=== PATIENT | female | born 1935 | race Native Hawaiian/Other Pacific Islander ===

== ENCOUNTER 2016-12-04 19:05 | Inpatient (IN) | payer MEDICARE ==
[2016-12-04] MEDS ORDERED: Sodium Chloride 0.9% 1000 ML 1,000 ML IV STA (19:23)
[2016-12-04] MEDS ORDERED: FEVERALL 650 MG PR ONE (19:28)
[2016-12-04 19:36] LABS: BASOPHIL % 0.1 % (0.0-0.4); Eosinophil % 0.1 % (0.00-5.0); Lymphocytes % 4.5 % (24.0-44.0); Mean Corpuscular Hemoglobin 29.3 pg (26-32); Mean Platelet Volume 11.8 fl (6-9.5); Monocytes % 4.3 % (0.0-12.0); Platelet Count 170 K/mm3 (150-450); Red Blood Count 4.09 M/mm3 (4.1-5.4); Red Cell Distribution Width 14.1 % (11.5-14.0); White Blood Count 9.3 K/mm3 (4.0-10.5)
[2016-12-04] MEDS ORDERED: Sodium Chloride 0.9% 1000 ML 1,000 ML ONE (19:39)
[2016-12-04] MEDS ORDERED: FEVERALL 650 MG ONE (19:39)
[2016-12-04 19:42] LABS: INR 1.16 (0.8-3.0)
[2016-12-04] MEDS ORDERED: Zosyn 3.375GM/100 Ml D5W 3.375 GM/100 ML IVPB IV STA (19:43)
[2016-12-04 19:44] LABS: PTT 31.6 SECONDS (25.3-37.0)
[2016-12-04 19:51] LABS: ALBUMIN 3.1 g/dL (3.4-5.0); ALKALINE PHOSPHATASE 39 U/L (46-116); ANION GAP 15.3 MEQ/L (5-15); BLOOD UREA NITROGEN 15 mg/dL (9-20); CHLORIDE 104 mEq/L (98-107); Glucose 152 MG/DL (70-110); SGOT/AST 13 U/L (15-37); SGPT/ALT 8 U/L (12-78); SODIUM 144 mEq/L (136-145); Total Protein 6.7 gm/dL (6.4-8.2)
[2016-12-04 19:51] LABS: VBG BASE EXCESS 6.2 (-2.0-2.0); VBG HCO3- 30.6 meq/L (22-28); VBG HEMOGLOBIN 13.7; VBG O2 SATURATION 71.4 (95-100); VBG pH 7.47 (7.32-7.42)
[2016-12-04 19:52] LABS: VBG POTASSIUM 2.7 (3.5-5.1)
[2016-12-04 20:00] LABS: Potassium 2.5 mEq/L (3.5-5.1)
[2016-12-04] MEDS ORDERED: Zosyn 3.375GM/100 Ml D5W 3.375 GM/100 ML IVPB IV ONE (20:00)
--- NOTE | 2016-12-04 20:04 | ERPHSYRPT ---
- History of Present Illness Time Seen by Provider: 12/04/16 19:33 Source: patient, family (sister in law), [facility] records Patient Subjective Stated Complaint: eMS STATES THEY WERE DISPATCHED TO LOCAL ECF FOR CHOKING FEMALE. EMS STATES UPON THEIR R ARRIVAL PT COUGHING BREATHING INCREASED. Triage Nursing Assessment: PT PALE, HOT TO TOUCH, DRY. ANTERIOR LUNGS CLEAR AND EQUAL. Physician History: CC: choking Hx: 81 y/o patient of Dr Marci Kitchen form [facility]. She is DNR status there. She had a choking spell this AM and had Heimlich. Choked again on tea this evening. She has fever and feels poorly. Some difficulty breathing. Pt gives limited hx due to her condition. Timing/Duration: today Severity: moderate Allergies/Adverse Reactions: No Known Drug Allergies Allergy (Unverified 12/04/16 19:13) Home Medications: Alprazolam [Xanax] 0.5 mg PO DAILY 12/04/16 [History] Aspirin 81 mg PO DAILY 12/04/16 [History] Calcium Carbonate [Calcium] 600 mg PO DAILY 12/04/16 [History] Carbidopa/Levodopa [Carbidopa-Levo 10-100 mg Odt] 1 each PO TID 12/04/16 [ History] Carbidopa/Levodopa [Carbidopa-Levo 25-100 Tab] 1 each PO TID 12/04/16 [History] Hydrocodone Bit/Acetaminophen [[place] 5-325 Tablet] 1 each PO Q4-6HPRN PRN [History] Ipratropium/Albuterol Sulfate [Iprat-Albut 0.5-3(2.5) mg/3 ml] 3 ml IH Q6H PRN PRN 12/04/16 [History] Latanoprost 2.5 ml OP DAILY 12/04/16 [History] Lorazepam 0.25 mg PO DAILY 12/04/16 [History] Omeprazole 20 MG [Prilosec 20 mg] 20 mg PO DAILY 12/04/16 [History] Sucralfate 1 gm [Carafate 1 GM] 1 gm PO QID 12/04/16 [History] Hx Tetanus, Diphtheria Vaccination/Date Given: (UNKOWN) Hx Influenza Vaccination/Date Given: (UNKNOWN) Hx Pneumococcal Vaccination/Date Given: (UNKOWN) Immunizations Up to Date: (UNKOWN) - Review of Systems Constitutional: Fever, Malaise Respiratory: Cough, Dyspnea, Other (choking spells) Abdominal/Gastrointestinal: No Vomiting Skin: No Rash Neurological: No Headache All Other Systems: Unable due to condition, Unable due to dementia - Past Medical History Pertinent Past Medical History: Yes Cardiac History: Hypertension Musculoskeletal History: Osteoporosis GI Medical History: GERD Other Medical History: Progressive Supranuclear Palsy - Past Surgical History Past Surgical History: Yes (UNKNOWN) - Social History Drug Use: none Patient Lives Alone: No ([facility]) - Nursing Vital Signs Nursing Vital Signs: Initial Vital Signs Temperature 102.7 F Temperature Source Rectal Pulse Rate 96 Respiratory Rate 18 Blood Pressure [] 128/58 Pain Intensity 6 - Physical Exam General Appearance: alert, other (limited answers to questions) Eye Exam: other (pupils are equal) Ears, Nose, Throat Exam: dry mucous membranes, other (No FB seen in her posterior pharynx) Neck Exam: supple Respiratory Exam: crackles/rales Cardiovascular Exam: regular rate/rhythm Extremity Exam: pedal edema Neurologic Exam: alert, other (moves all extermities equally) Skin Exam: warm, dry, pale SpO2 Interpretation: borderline oxygenation, O2 applied SpO2: 94 Oxygen Delivery: Nasal Cannula - Course Nursing assessment & vital signs reviewed: Yes EKG Interpreted by Me: RATE (101), Sinus Tach, NORMAL AXIS, Non-specific ST Changes - Radiology Exams cxr X-ray Interpretation: Reviewed by me (RLL infiltrate, CM, aging chest) - CT Exams head CT Interpretation: Tele-radiologist Report (non acute senile brain, 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) Ordered Tests: Active Orders 24 hr Category Date Time Status Corporate Librarian STAT Care 12/04/16 19:34 Active Cath for Specimen-Straight STAT Care 12/04/16 19:34 Active EKG-ER Only STAT Care 12/04/16 19:27 Active IV Insertion STAT Care 12/04/16 19:27 Active IV Insertion-2nd Peripheral STAT Care 12/04/16 19:34 Active NPO (ED) STAT Care 12/04/16 19:42 Active Oxygen-ED Only NASAL CANNULA 3 lpm Care 12/04/16 19:23 Active Pulse Oximetry (ED) STAT Care 12/04/16 19:23 Active Saline Lock STAT Care 12/04/16 19:34 Active CHEST 1 VIEW (PORTABLE) Stat Exams 12/04/16 19:22 Taken HEAD WITHOUT CONTRAST [CT] Stat Exams 12/04/16 19:42 Taken BLOOD CULTURE Stat Lab 12/04/16 19:30 Received CBC W DIFF Stat Lab 12/04/16 19:00 Completed CMP Stat Lab 12/04/16 19:00 Completed CULTURE,URINE Stat Lab 12/04/16 19:30 Received Lactic Acid Stat Lab 12/04/16 19:35 Completed MAGNESIUM Stat Lab 12/04/16 19:00 Completed Manual Differential NC Stat Lab 12/04/16 19:00 Completed PROTIME WITH INR Stat Lab 12/04/16 19:00 Completed PTT Stat Lab 12/04/16 19:00 Completed UA W/ MICROSCOPIC Stat Lab 12/04/16 19:30 Completed VENOUS BLOOD GAS Stat Lab 12/04/16 19:35 Completed Medication Summary Generic Name Dose Route Start Last Admin Trade Name Freq PRN Reason Stop Dose Admin Potassium Chloride 100 mls @ 50 mls/hr 12/04/16 20:30 12/04/16 20:42 Potassium Chloride 20 Meq In Water 100ml IV 12/05/16 00:29 50 mls/hr Q2H ANDER Administration Discontinued Medications Generic Name Dose Route Start Last Admin Trade Name Freq PRN Reason Stop Dose Admin Acetaminophen 650 mg 12/04/16 19:28 12/04/16 19:40 Feverall 650 Mg FL 12/04/16 19:29 650 mg STAT ONE Administration Acetaminophen Confirm 12/04/16 19:39 Feverall 650 Mg Administered 12/04/16 19:40 Dose 650 mg .ROUTE .STK-MED ONE Sodium Chloride 1,000 mls @ 999 mls/hr 12/04/16 19:23 12/04/16 19:40 Sodium Chloride 0.9% 1000 Ml IV 12/04/16 20:23 999 mls/hr .Q1H1M STA Administration Sodium Chloride Confirm 12/04/16 19:39 Sodium Chloride 0.9% 1000 Ml Administered 12/04/16 19:40 Dose 1,000 mls @ ud .ROUTE .STK-MED ONE Piperacillin Sod/Tazobactam Sod 3.375 gm in 100 mls @ 200 mls/hr 12/04/16 19: 43 06/06/17 20:10 Zosyn 3.375gm/100 Ml D5w IV 12/04/16 20:12 200 mls/hr STAT STA Administration Piperacillin Sod/Tazobactam Sod Confirm 12/04/16 20:00 Zosyn 3.375gm/100 Ml D5w Administered 12/04/16 20:01 Dose 3.375 gm in 100 mls @ ud IV .STK-MED ONE Lab/Rad Data: Laboratory Result Diagrams 12/04/16 19:00 12/04/16 19:00 Laboratory Results 12/04/16 12/04/16 12/04/16 Range/Units 19:35 19:35 19:30 WBC (4.0-10.5) K/mm3 RBC (4.1-5.4) M/mm3 Hgb (12.0-16.0) gm/dl Hct (35-47) % MCV (78-100) fl MCH (26-32) pg MCHC (32-36) g/dl RDW (11.5-14.0) % Plt Count (150-450) K/mm3 MPV (6-9.5) fl Gran % (36.0-66.0) % Lymphocytes % (24.0-44.0) % Monocytes % (0.0-12.0) % Eosinophils % (0.00-5.0) % Basophils % (0.0-0.4) % Segmented Neutrophils (36.0-66.0) % Band Neutrophils (0.0-2.0) % Lymphocytes (Manual) (24-44) % Monocytes (Manual) (0.0-12.0) % Basophils # (0-0.4) Differential Comment Platelet Estimate (NORMAL) Poikilocytosis Ovalocytes INR (0.8-3.0) APTT (25.3-37.0) SECONDS VBG pH 7.47 H (7.32-7.42) VBG pCO2 at Pat Temp 42 (42-55) mm/Hg VBG pO2 at Pat Temp 36 (25-40) mm/Hg VBG HCO3 30.6 H* (22-28) meq/L VBG O2 Sat (Merry) 71.4 L (95-100) VBG Base Excess 6.2 H (-2.0-2.0) VBG Hemoglobin 13.7 VBG Carboxyhemoglobin 2.0 (0.0-6.9) % T HGB POC Potassium 2.7 L* (3.5-5.1) Sodium (136-145) mEq/L Potassium (3.5-5.1) mEq/L Chloride (98-107) mEq/L Carbon Dioxide (21-32) mEq/L Anion Gap (5-15) MEQ/L BUN (9-20) mg/dL Creatinine (0.55-1.30) mg/dl Estimated GFR ML/MIN Glucose (70-110) MG/DL Lactic Acid 1.2 (0.4-2.0) Calcium (8.5-10.1) mg/dL Magnesium (1.8-2.4) mg/dL Total Bilirubin (0.2-1.0) mg/dL AST (15-37) U/L ALT (12-78) U/L Alkaline Phosphatase (46-116) U/L Serum Total Protein (6.4-8.2) gm/dL Albumin (3.4-5.0) g/dL Ur Collection Type CATH Urine Color YELLOW (YELLOW) Urine Appearance CLOUDY (CLEAR) Urine pH 6.0 (5-6) Ur Specific [place] 1.020 (1.005-1.025) Urine Protein 30 (Negative) Urine Glucose (UA) NEGATIVE (NEGATIVE) mg/dL Urine Ketones TRACE (NEGATIVE) Urine Nitrite POSITIVE (NEGATIVE) Urine Bilirubin NEGATIVE (NEGATIVE) Urine Urobilinogen 0.2 (0-1) mg/dL Urine WBC (Auto) SMALL (NEGATIVE) Urine RBC (Auto) MODERATE (0-5) Jose Maria/ul Urine Microscopic RBC 5-10 (0-2) /HPF Urine Microscopic WBC 5-10 (0-5) /HPF Ur Epithelial Cells MODERATE (FEW) /HPF Urine Bacteria MODERATE (NEGATIVE) /HPF Urine Mucus SLIGHT (NEGATIVE) /HPF Specimen Received 12/04/16199912/04/16 12/04/16 12/04/16 Range/Units 19:00 19:00 19:00 WBC (4.0-10.5) K/mm3 RBC (4.1-5.4) M/mm3 Hgb (12.0-16.0) gm/dl Hct (35-47) % MCV (78-100) fl MCH (26-32) pg MCHC (32-36) g/dl RDW (11.5-14.0) % Plt Count (150-450) K/mm3 MPV (6-9.5) fl Gran % (36.0-66.0) % Lymphocytes % (24.0-44.0) % Monocytes % (0.0-12.0) % Eosinophils % (0.00-5.0) % Basophils % (0.0-0.4) % Segmented Neutrophils (36.0-66.0) % Band Neutrophils (0.0-2.0) % Lymphocytes (Manual) (24-44) % Monocytes (Manual) (0.0-12.0) % Basophils # (0-0.4) Differential Comment Platelet Estimate (NORMAL) Poikilocytosis Ovalocytes INR 1.16 (0.8-3.0) APTT 31.6 (25.3-37.0) SECONDS VBG pH (7.32-7.42) VBG pCO2 at Pat Temp (42-55) mm/Hg VBG pO2 at Pat Temp (25-40) mm/Hg VBG HCO3 (22-28) meq/L VBG O2 Sat (Merry) (95-100) VBG Base Excess (-2.0-2.0) VBG Hemoglobin VBG Carboxyhemoglobin (0.0-6.9) % T HGB POC Potassium (3.5-5.1) Sodium 144 (136-145) mEq/L Potassium 2.5 L* (3.5-5.1) mEq/L Chloride 104 (98-107) mEq/L Carbon Dioxide 28.0 (21-32) mEq/L Anion Gap 15.3 H (5-15) MEQ/L BUN 15 (9-20) mg/dL Creatinine 0.85 (0.55-1.30) mg/dl Estimated GFR > 60 ML/MIN Glucose 152 H (70-110) MG/DL Lactic Acid (0.4-2.0) Calcium 8.2 L (8.5-10.1) mg/dL Magnesium 1.7 L (1.8-2.4) mg/dL Total Bilirubin 0.40 (0.2-1.0) mg/dL AST 13 L (15-37) U/L ALT 8 L (12-78) U/L Alkaline Phosphatase 39 L (46-116) U/L Serum Total Protein 6.7 (6.4-8.2) gm/dL Albumin 3.1 L (3.4-5.0) g/dL Ur Collection Type Urine Color (YELLOW) Urine Appearance (CLEAR) Urine pH (5-6) Ur Specific [place] (1.005-1.025) Urine Protein (Negative) Urine Glucose (UA) (NEGATIVE) mg/dL Urine Ketones (NEGATIVE) Urine Nitrite (NEGATIVE) Urine Bilirubin (NEGATIVE) Urine Urobilinogen (0-1) mg/dL Urine WBC (Auto) (NEGATIVE) Urine RBC (Auto) (0-5) Jose Maria/ul Urine Microscopic RBC (0-2) /HPF Urine Microscopic WBC (0-5) /HPF Ur Epithelial Cells (FEW) /HPF Urine Bacteria (NEGATIVE) /HPF Urine Mucus (NEGATIVE) /HPF Specimen Received 12/04/16 Range/Units 19:00 WBC 9.3 (4.0-10.5) K/mm3 RBC 4.09 L (4.1-5.4) M/mm3 Hgb 12.0 (12.0-16.0) gm/dl Hct 37.2 (35-47) % MCV 91.0 (78-100) fl MCH 29.3 (26-32) pg MCHC 32.3 (32-36) g/dl RDW 14.1 H (11.5-14.0) % Plt Count 170 (150-450) K/mm3 MPV 11.8 H (6-9.5) fl Gran % 91.0 H (36.0-66.0) % Lymphocytes % 4.5 L (24.0-44.0) % Monocytes % 4.3 (0.0-12.0) % Eosinophils % 0.1 (0.00-5.0) % Basophils % 0.1 (0.0-0.4) % Segmented Neutrophils 91 H (36.0-66.0) % Band Neutrophils 5 H (0.0-2.0) % Lymphocytes (Manual) 3 L (24-44) % Monocytes (Manual) 1 (0.0-12.0) % Basophils # 0.01 (0-0.4) Differential Comment ABNORMAL Platelet Estimate NORMAL (NORMAL) Poikilocytosis 1+ Ovalocytes 1+ INR (0.8-3.0) APTT (25.3-37.0) SECONDS VBG pH (7.32-7.42) VBG pCO2 at Pat Temp (42-55) mm/Hg VBG pO2 at Pat Temp (25-40) mm/Hg VBG HCO3 (22-28) meq/L VBG O2 Sat (Merry) (95-100) VBG Base Excess (-2.0-2.0) VBG Hemoglobin VBG Carboxyhemoglobin (0.0-6.9) % T HGB POC Potassium (3.5-5.1) Sodium (136-145) mEq/L Potassium (3.5-5.1) mEq/L Chloride (98-107) mEq/L Carbon Dioxide (21-32) mEq/L Anion Gap (5-15) MEQ/L BUN (9-20) mg/dL Creatinine (0.55-1.30) mg/dl Estimated GFR ML/MIN Glucose (70-110) MG/DL Lactic Acid (0.4-2.0) Calcium (8.5-10.1) mg/dL Magnesium (1.8-2.4) mg/dL Total Bilirubin (0.2-1.0) mg/dL AST (15-37) U/L ALT (12-78) U/L Alkaline Phosphatase (46-116) U/L Serum Total Protein (6.4-8.2) gm/dL Albumin (3.4-5.0) g/dL Ur Collection Type Urine Color (YELLOW) Urine Appearance (CLEAR) Urine pH (5-6) Ur Specific [place] (1.005-1.025) Urine Protein (Negative) Urine Glucose (UA) (NEGATIVE) mg/dL Urine Ketones (NEGATIVE) Urine Nitrite (NEGATIVE) Urine Bilirubin (NEGATIVE) Urine Urobilinogen (0-1) mg/dL Urine WBC (Auto) (NEGATIVE) Urine RBC (Auto) (0-5) Jose Maria/ul Urine Microscopic RBC (0-2) /HPF Urine Microscopic WBC (0-5) /HPF Ur Epithelial Cells (FEW) /HPF Urine Bacteria (NEGATIVE) /HPF Urine Mucus (NEGATIVE) /HPF Specimen Received - Progress Progress Note: 12/04/16 20:04 Son agreed on phine with nurse for SCO. Sepsis orders initiated. APAP given. Zosyn given to cover for aspiration pneumonia. 12/04/16 21:14 Pt stable. K rider started. Zosyn given. Called Dr Gutierrez for Cammie. Will admit to med surg for sepsis care, coverage for aspiration pneumonia. NPO until Speech therapy evaluation. Discussed with .: Brenda Will see patient in: hospital (full admit) Counseled pt/family regarding: lab results, diagnosis, need for follow-up, rad results - Departure Time of Disposition: 21:15 Departure Disposition: In-patient Admission Clinical Impression: Aspiration pneumonia, Hypokalemia, choking spells, Sepsis Condition: Fair Critical Care Time: No Referrals: MARCI KITCHEN [Primary Care Provider] -
[2016-12-04 20:18] LABS: Bacteria MODERATE /HPF (NEGATIVE); COMPLETE URINE MICROSCOPIC? YES; Collection Type CATH; Epithelial Cells MODERATE /HPF (FEW); Mucus SLIGHT /HPF (NEGATIVE)
[2016-12-04 20:19] LABS: ADD URINE CULTURE? YES (NO)
[2016-12-04] MEDS: POTASSIUM CHLORIDE 20 mEq IN WATER 100ML 100 ML IV SCH (20:42)
[2016-12-04 21:12] LABS: BAND 5 % (0.0-2.0); Platelet Estimate NORMAL (NORMAL); Total Cells Counted 100
[2016-12-04 21:13] LABS: Ovalocytes 1+; Poikilocytosis 1+
[2016-12-04] MEDS ORDERED: DUONEB 0.5-3 MG/3 ml Neb IH PRN (22:22)
[2016-12-04] MEDS ORDERED: Sodium Chloride 0.9% W/ 20 mEq KCl/LITER 0 ML IV ONE (23:52)
[2016-12-05] MEDS: SODIUM CHLORIDE 0.45% W/ 20 mEq KCL 1,000 ML IV SCH ×2 (00:05→09:30)
[2016-12-05] MEDS: POTASSIUM CHLORIDE 20 mEq IN WATER 100ML 100 ML IV SCH (00:06)
[2016-12-05] MEDS: Zosyn 3.375GM/100 Ml D5W 3.375 GM/100 ML IVPB IV SCH ×2 (02:04→06:56)
[2016-12-05] MEDS ORDERED: Magnesium 1 Gm / 100 Ml D5W*** 100 ML IV ONE (04:35)
[2016-12-05] MEDS ORDERED: FEVERALL 325 MG ONE (05:11)
[2016-12-05] MEDS: FEVERALL 325 MG PR PRN ×2 (05:15→23:20)
[2016-12-05 05:39] LABS: BASOPHIL % 0.2 % (0.0-0.4); Eosinophil % 2.1 % (0.00-5.0); Granulocytes % 73.1 % (36.0-66.0); Lymphocytes % 22.3 % (24.0-44.0); Mean Cell Volume 92.7 fl (78-100); Mean Corpuscular Hemoglobin 29.2 pg (26-32); Mean Platelet Volume 12.4 fl (6-9.5); Monocytes % 2.3 % (0.0-12.0); Platelet Count 145 K/mm3 (150-450); Red Blood Count 4.52 M/mm3 (4.1-5.4); Red Cell Distribution Width 14.6 % (11.5-14.0)
[2016-12-05 05:40] LABS: ANION GAP 20.5 MEQ/L (5-15); Carbon Dioxide 21.7 mEq/L (21-32); Potassium 3.5 mEq/L (3.5-5.1)
[2016-12-05 07:23] LABS: Lactic Acid 5.7 (0.4-2.0)
[2016-12-05] MEDS ORDERED: Lactated Ringers 1,000 ML IV ONE (08:00)
--- NOTE | 2016-12-05 08:09 | PCM.HP ---
History of Present Illness - Chief Complaint Chief Complaint: sepsis Date: 12/05/16 History of Present Illness: is a 81 year old female. who is suffering from progressive supranuclear palsy and is in the alf where she has had some intermittent swallowing difficulties and a few episodes of choking with eating and had a more severe episode of choking yesterday at the dining dejesus at lunch and was taken back to her room she was coughing up thick yellow mucous then and started to run an elevated temperature and was sent for further evaluation at the ED. She was initially treated for aspiration pneumonia with zosyn; however last night developed copious watery diarrhea and very high fever and was chilling as well and tested positive for c. diff this am. Currently this am she is sitting up in her bed responding appropriately for her at her normal baseline and denies any current complaints. She is hungry but otherwise denies being short of breath or abdominal pains and no chest pains. - Review of Systems Constitutional: Fever, Chills, Fatigue Ears, Nose, & Throat: No Nose Discharge, No Sinus Drainage Respiratory: Cough, No Short Of Breath Cardiac: No Edema, No Palpitations Abdominal/Gastrointestinal: Diarrhea, No Abdominal Pain, No Nausea, No Vomiting Genitourinary Symptoms: No Dysuria Musculoskeletal: No Arthralgias, No Back Pain, No Joint Redness Skin: No Cellulitis Neurological: No Dizziness, No Irritability Medications & Allergies Home Medications: Home Medication List Alprazolam [Xanax] 0.5 mg PO DAILY 12/04/16 [History Confirmed 12/04/16] Aspirin 81 mg PO DAILY 12/04/16 [History Confirmed 12/04/16] Calcium Carbonate [Calcium] 600 mg PO DAILY 12/04/16 [History Confirmed 12/04/16 ] Carbidopa/Levodopa [Carbidopa-Levo 10-100 mg Odt] 1 each PO TID 12/04/16 [ History Confirmed 12/04/16] Carbidopa/Levodopa [Carbidopa-Levo 25-100 Tab] 1 each PO TID 12/04/16 [History Confirmed 12/04/16] Hydrocodone Bit/Acetaminophen [[place] 5-325 Tablet] 1 each PO Q4-6HPRN PRN [History Confirmed 12/04/16] Ipratropium/Albuterol Sulfate [Iprat-Albut 0.5-3(2.5) mg/3 ml] 3 ml IH Q6H PRN PRN 12/04/16 [History Confirmed 12/04/16] Latanoprost 2.5 ml OP DAILY 12/04/16 [History Confirmed 12/04/16] Lorazepam 0.25 mg PO DAILY 12/04/16 [History Confirmed 12/04/16] Omeprazole 20 MG [Prilosec 20 mg] 20 mg PO DAILY 12/04/16 [History Confirmed 12/15] Sucralfate 1 gm [Carafate 1 GM] 1 gm PO QID 12/04/16 [History Confirmed ] Ascorbic Acid 500 mg [Vitamin C 500 MG] 500 mg PO DAILY 12/05/16 [History Confirmed 12/05/16] Cyclosporine [Restasis] 0.05 drop OP BID 12/05/16 [History Confirmed 12/05/16] Diclofenac Sodium Gel [Voltaren GEL] 1 gm TOP BIDPRN PRN 12/05/16 [ History Confirmed 12/05/16] Escitalopram Oxalate 10 mg [Lexapro 10 MG] 20 mg PO DAILY 12/05/16 [History Confirmed 12/05/16] Sennosides [Senokot] 8.6 mg PO BID 12/05/16 [History Confirmed 12/05/16] Vitamin E 400 unit PO DAILY 12/05/16 [History Confirmed 12/05/16] Allergies/Adverse Reactions: Allergies Allergy/AdvReac Type Severity Reaction Status Date / Time No Known Drug Allergies Allergy Unverified 12/04/16 19:13 - Past Medical History Past Medical History: Yes Neurological History: Other ENT History: Glaucoma Cardiac History: Hypertension Respiratory History: COPD Musculoskelatal History: Osteoporosis GI Medical History: GERD Pyscho-Social History: Anxiety Comment: Progressive Supranuclear Palsy - Female History Are you now?: No - Past Surgical History Past Surgical History: (UNKNOWN) - Social History Smoking Status: Unknown if ever smoked Exposure to second hand smoke: No Alcohol: None Drug Use: none - Physical Exam Vital Signs: Vital Signs - 24 hr Temp Pulse Resp BP Pulse Ox 12/05/16 08:00 103 F 95 H 28 H 123/65 99 06/07/17 07:14 100 H 30 H 97 12/05/16 04:15 98.3 F 94 H 22 139/68 94 L 12/05/16 04:00 22 12/05/16 00:00 14 12/04/16 22:17 103 H 32 H 97 12/04/16 22:15 98.6 F 101 H 14 144/74 93 L 12/04/16 21:52 93 L 12/04/16 21:16 94 L 12/04/16 20:54 96 H 18 128/58 98 12/04/16 19:59 88 18 158/76 95 12/04/16 19:26 94 L 12/04/16 19:07 102.7 F 101 H 28 H 159/74 94 L Oxygen-Last 24 hours O2 Percentage 2 Liters = 28% O2 Percentage 2 Liters = 28% O2 Percentage 2 Liters = 28% O2 Percentage 3 Liters = 32% O2 Percentage 3 Liters = 32% General Appearance: no apparent distress Neurologic Exam: alert, cooperative, normal mood/affect Eye Exam: No scleral icterus, No pale conjunctivae Ears, Nose, Throat Exam: moist mucous membranes Neck Exam: non-tender, supple Respiratory Exam: crackles/rales (minimal bibasilar rales), No accessory muscle use, No prolonged expirations, No wheezing Cardiovascular Exam: regular rate/rhythm, murmur Gastrointestinal/Abdomen Exam: soft, normal bowel sounds, No tenderness, No distention Results - Labs Lab/Micro Results: Lab Results-Last 24 Hours 12/05/16 12/05/16 12/05/16 Range/Units 04:40 04:40 04:40 WBC 10.0 (4.0-10.5) K/mm3 RBC 4.52 (4.1-5.4) M/mm3 Hgb 13.2 (12.0-16.0) gm/dl Hct 41.9 (35-47) % MCV 92.7 (78-100) fl MCH 29.2 (26-32) pg MCHC 31.5 L (32-36) g/dl RDW 14.6 H (11.5-14.0) % Plt Count 145 L (150-450) K/mm3 MPV 12.4 H (6-9.5) fl Gran % 73.1 H (36.0-66.0) % Lymphocytes % 22.3 L (24.0-44.0) % Monocytes % 2.3 (0.0-12.0) % Eosinophils % 2.1 (0.00-5.0) % Basophils % 0.2 (0.0-0.4) % Basophils # 0.02 (0-0.4) Sodium 145 (136-145) mEq/L Potassium 3.5 (3.5-5.1) mEq/L Chloride 106 (98-107) mEq/L Carbon Dioxide 21.7 (21-32) mEq/L Anion Gap 20.5 H (5-15) MEQ/L BUN 13 (9-20) mg/dL Creatinine 1.04 (0.55-1.30) mg/dl Estimated GFR 54 ML/MIN Glucose 118 H (70-110) MG/DL Lactic Acid 5.7 H (0.4-2.0) Calcium 8.0 L (8.5-10.1) mg/dL Stl C. diff Tox B Gene (NEGATIVE) C.difficile 027-NAP1-B1 (NEGATIVE) 12/05/16 Range/Units 05:39 WBC (4.0-10.5) K/mm3 RBC (4.1-5.4) M/mm3 Hgb (12.0-16.0) gm/dl Hct (35-47) % MCV (78-100) fl MCH (26-32) pg MCHC (32-36) g/dl RDW (11.5-14.0) % Plt Count (150-450) K/mm3 MPV (6-9.5) fl Gran % (36.0-66.0) % Lymphocytes % (24.0-44.0) % Monocytes % (0.0-12.0) % Eosinophils % (0.00-5.0) % Basophils % (0.0-0.4) % Basophils # (0-0.4) Sodium (136-145) mEq/L Potassium (3.5-5.1) mEq/L Chloride (98-107) mEq/L Carbon Dioxide (21-32) mEq/L Anion Gap (5-15) MEQ/L BUN (9-20) mg/dL Creatinine (0.55-1.30) mg/dl Estimated GFR ML/MIN Glucose (70-110) MG/DL Lactic Acid (0.4-2.0) Calcium (8.5-10.1) mg/dL Stl C. diff Tox B Gene POSITIVE (NEGATIVE) C.difficile 027-NAP1-B1 PRESUMPTIVE NEGATIVE (NEGATIVE) - Other Procedures and Tests Respiratory Therapy 12/04/16 22:22 Respiratory Nebulizer UD Assessment/Plan (1) C. difficile diarrhea Current Visit: Yes Status: Acute Assessment & Plan: she has received 2 doses of zosyn it looks like will stop this for now and monitor respiratory status start iv flagyl and po vanc given the severity and acuity of her decompensation overnight with the elevated lactic acid and high temp spike. bolus 1 L LR now and repeat lactic acid in 2 hours. continue respiratory supplementation with oxygen as needed wean as tolerated and have speech evaluation lovenox for dvt ppx she currently has good peripheral perfusion and her hydration currently appears euvolemic Code(s): A04.7 - ENTEROCOLITIS DUE TO CLOSTRIDIUM DIFFICILE (2) Aspiration pneumonia Current Visit: Yes Status: Acute Code(s): J69.0 - PNEUMONITIS DUE TO INHALATION OF FOOD AND VOMIT (3) Sepsis Current Visit: Yes Status: Acute (4) Hypokalemia Current Visit: Yes Status: Acute Code(s): E87.6 - HYPOKALEMIA (5) Progressive supranuclear palsy Current Visit: Yes Status: Chronic Code(s): G23.1 - PROGRESSIVE SUPRANUCLEAR OPHTHALMOPLEGIA
[2016-12-05 08:27] LABS: A-aADO2 446; ARTERIAL BLD GAS O2 SATURATION 99.2 % (95-100); ARTERIAL BLOOD GAS BASE EXCESS 2.6 (-2.0-2.0); ARTERIAL BLOOD GAS FIO2 100 %; ARTERIAL BLOOD GAS PO2 222 mmHg (75-100); ARTERIAL BLOOD GAS pH 7.47 (7.35-7.45)
[2016-12-05 08:28] LABS: ALLEN TEST OK? YES
--- NOTE | 2016-12-05 08:42 | XRAY ---
Indication: Cough, fever, and choking. Comparison: None Portable chest demonstrates minimal bibasilar infiltrates versus atelectasis without large effusion. Heart is not enlarged for AP portable technique. Bony thorax intact with mild osteopenia, minimal scoliosis, and degenerative changes. Impression: Bibasilar infiltrates/atelectasis. Correlate clinically.
--- NOTE | 2016-12-05 08:47 | XRAY ---
Indication: Headache. Fall. Multiple contiguous axial images obtained through the head without contrast. Comparison: None Age-appropriate global atrophy and moderate periventricular degenerative micro-ischemia bilaterally. Left external capsule remote lacunar infarct. No acute intracranial hemorrhage, abnormal extra-axial fluid collection, or mass effect. Bony calvarium intact. Visualized paranasal sinuses and mastoid air cells are clear. Partially visualized advanced atlantoaxial degenerative changes. Impression: Nonacute senile brain including left external capsule remote lacunar infarct. CT DI 60.26
[2016-12-05] MEDS ORDERED: Lactated Ringers 1,000 ML IV SCH (09:00)
[2016-12-05] MEDS ORDERED: Artificial Tears 15 ML OP PRN (09:31)
[2016-12-05] MEDS: VANCOMYCIN 25MG/ML COMPOUND KIT PO SCH ×4 (09:56→21:31)
[2016-12-05] MEDS: ENOXAPARIN SODIUM SQ SCH (09:58)
[2016-12-05] MEDS ORDERED: CARBIDOPA PO SCH (10:00)
[2016-12-05] MEDS ORDERED: NON-FORMULARY ITEM (Omeprazole 20 Mg [Prilosec 20 Mg] 20 MG) PO SCH (10:00)
[2016-12-05] MEDS ORDERED: NON-FORMULARY ITEM (Aspirin [Aspirin] 81 MG) PO SCH (10:00)
[2016-12-05] MEDS ORDERED: LEVODOPA PO SCH (10:00)
[2016-12-05] MEDS ORDERED: CYCLOSPORINE OP SCH (10:00)
[2016-12-05] MEDS: Lexapro 10 MG PO SCH (10:10)
[2016-12-05] MEDS: Protonix 40MG Tablet PO SCH (10:10)
[2016-12-05] MEDS: ECOTRIN 81 MG PO SCH (10:10)
[2016-12-05] MEDS: Sinemet 10/100 MG PO SCH ×3 (10:10→21:31)
[2016-12-05] MEDS: Sinemet 25/100 MG PO SCH ×3 (10:10→21:30)
[2016-12-05] MEDS: Vitamin C 500 MG PO SCH (10:10)
[2016-12-05] MEDS: Ativan 0.5 MG PO SCH (10:44)
[2016-12-05] MEDS: FLAGYL 500 MG IVPB 500 MG/100 ML BAG IV SCH ×3 (11:58→23:06)
[2016-12-05] MEDS: xanAX 0.5 MG PO SCH (21:30)
[2016-12-05] MEDS: Xalatan OP SCH (21:37)
[2016-12-06] MEDS: SODIUM CHLORIDE 0.45% W/ 20 mEq KCL 1,000 ML IV SCH (03:12)
[2016-12-06] MEDS: FLAGYL 500 MG IVPB 500 MG/100 ML BAG IV SCH ×3 (06:02→17:26)
[2016-12-06 06:03] LABS: BASOPHIL % 0.4 % (0.0-0.4); Eosinophil % 1.7 % (0.00-5.0); Granulocytes % 67.7 % (36.0-66.0); Lymphocytes % 21.7 % (24.0-44.0); Mean Cell Volume 92.9 fl (78-100); Mean Corpuscular Hemoglobin 29.3 pg (26-32); Mean Platelet Volume 11.6 fl (6-9.5); Monocytes % 8.5 % (0.0-12.0); Platelet Count 142 K/mm3 (150-450); Red Blood Count 3.51 M/mm3 (4.1-5.4); Red Cell Distribution Width 14.5 % (11.5-14.0); White Blood Count 5.4 K/mm3 (4.0-10.5)
[2016-12-06 06:28] LABS: ANION GAP 10.5 MEQ/L (5-15); BLOOD UREA NITROGEN 12 mg/dL (9-20); CHLORIDE 113 mEq/L (98-107); Carbon Dioxide 27.5 mEq/L (21-32); Glucose 92 MG/DL (70-110); MAGNESIUM 1.8 mg/dL (1.8-2.4); SODIUM 148 mEq/L (136-145)
[2016-12-06 06:34] LABS: Potassium 2.8 mEq/L (3.5-5.1)
[2016-12-06] MEDS: POTASSIUM CHLORIDE 20 mEq IN WATER 100ML 100 ML IV SCH ×2 (07:12→09:15)
--- NOTE | 2016-12-06 09:07 | XRAY ---
Indication: Aspiration. Comparison: December 04, 2016. Portable chest again demonstrates minimal bibasilar infiltrates/atelectasis with new small right effusion. Remaining heart and lungs again unremarkable.
[2016-12-06] MEDS: Ativan 0.5 MG PO SCH (09:43)
[2016-12-06] MEDS: Protonix 40MG Tablet PO SCH (09:48)
[2016-12-06] MEDS: ECOTRIN 81 MG PO SCH (09:48)
[2016-12-06] MEDS: Lexapro 10 MG PO SCH (09:48)
[2016-12-06] MEDS: Sinemet 10/100 MG PO SCH ×3 (09:48→21:54)
[2016-12-06] MEDS: ENOXAPARIN SODIUM SQ SCH (09:48)
[2016-12-06] MEDS: Vitamin C 500 MG PO SCH (09:48)
[2016-12-06] MEDS: ROCEPHIN 1 Gm-D5w 50 ml Bag** 1 G/50 ML IVPB IV SCH (09:49)
[2016-12-06] MEDS: VANCOMYCIN 25MG/ML COMPOUND KIT PO SCH ×4 (09:50→21:54)
[2016-12-06] MEDS: Sinemet 25/100 MG PO SCH ×3 (09:50→21:54)
[2016-12-06] MEDS ORDERED: POTASSIUM CHLORIDE 20 mEq IN WATER 100ML 100 ML IV ONE (18:12)
--- NOTE | 2016-12-06 19:53 | PCM.NOTE ---
Date and Time: 12/06/161947 Subjective Assessment: she is very pleasent this am but is concerned with her thickened liquids as she wants her thin liquids back. She thinks she is feeling better. She has no abdominal pain and denies difficulty breathing. Her diarrhea has diminished. Objective Exam General Appearance: no apparent distress, alert Neurologic Exam: alert, oriented x 3, cooperative Skin Exam: warm, dry Eye Exam: No scleral icterus, No pale conjunctivae Ears, Nose, Throat Exam: moist mucous membranes Neck Exam: normal inspection, non-tender, supple Respiratory Exam: other (on 2 L nc O2 left basilar rales unchanged increased right basilar rales), No respiratory distress Cardiovascular Exam: regular rate/rhythm, normal heart sounds Gastrointestinal/Abdomen Exam: soft, normal bowel sounds, No tenderness, No mass Extremity Exam: normal inspection, pedal edema (trace to 1+ clay LE edema), No calf tenderness Pelvic Exam: deferred Rectal Exam: deferred OBJECTIVE DATA Vital Signs: Vital Signs - 24 hr Temp Pulse Resp BP Pulse Ox 12/06/16 19:31 97.7 F 87 20 171/79 95 12/06/16 17:00 98.8 F 82 26 H 123/59 98 12/06/16 13:00 99.1 F 81 28 H 140/72 97 12/06/16 07:36 98.7 F 82 22 143/72 97 12/06/16 07:25 79 28 H 94 L 12/06/16 05:00 98.0 F 82 19 131/66 94 L 12/06/16 04:00 23 12/06/16 00:01 101.1 F 93 H 32 H 145/65 93 L 12/06/16 00:00 32 H 12/05/16 21:52 95 12/05/16 20:40 87 26 H 97 12/05/16 20:00 27 H 12/05/16 19:56 99.9 F 87 27 H 132/60 98 Oxygen-Last 24 hours O2 Percentage 4 Liters = 36% O2 Percentage 2 Liters = 28% O2 Percentage 2 Liters = 28% O2 Percentage 2 Liters = 28% O2 Percentage 2 Liters = 28% O2 Percentage 4 Liters = 36% Pain Assessment - Last Documented Pain Scale Used 0-10 Pain Scale Intake and Output: Intake & Output 12/04/16 12/05/16 12/06/16 12/07/16 11:59 11:59 11:59 11:59 Intake Total 3644 240 Output Total 200 200 Balance -200 3444 240 Weight 73.624 kg 73.624 kg Lab Results: Lab Results-Last 24 Hours 12/06/16 12/06/16 12/06/16 Range/Units 05:53 05:53 13:47 WBC 5.4 (4.0-10.5) K/mm3 RBC 3.51 L (4.1-5.4) M/mm3 Hgb 10.3 L (12.0-16.0) gm/dl Hct 32.6 L (35-47) % MCV 92.9 (78-100) fl MCH 29.3 (26-32) pg MCHC 31.6 L (32-36) g/dl RDW 14.5 H (11.5-14.0) % Plt Count 142 L (150-450) K/mm3 MPV 11.6 H (6-9.5) fl Gran % 67.7 H (36.0-66.0) % Lymphocytes % 21.7 L (24.0-44.0) % Monocytes % 8.5 (0.0-12.0) % Eosinophils % 1.7 (0.00-5.0) % Basophils % 0.4 (0.0-0.4) % Basophils # 0.02 (0-0.4) Sodium 148 H (136-145) mEq/L Potassium 2.8 L* 3.2 L (3.5-5.1) mEq/L Chloride 113 H (98-107) mEq/L Carbon Dioxide 27.5 (21-32) mEq/L Anion Gap 10.5 (5-15) MEQ/L BUN 12 (9-20) mg/dL Creatinine 0.82 (0.55-1.30) mg/dl Estimated GFR > 60 ML/MIN Glucose 92 (70-110) MG/DL Calcium 7.5 L (8.5-10.1) mg/dL Magnesium 1.8 (1.8-2.4) mg/dL Radiology Exams: Radiology Procedures Category Date Time Status Portable Chest [CHEST 1 VIEW (PORTABLE)] Routine Exams 12/06/16 08:39 Completed Assessment/Plan (1) C. difficile diarrhea Current Visit: Yes Status: Acute Assessment & Plan: this seems to be improving now she was febrile still overnight continue flagyl iv and the vanc po given severity of her initial symptoms yesterday Code(s): A04.7 - ENTEROCOLITIS DUE TO CLOSTRIDIUM DIFFICILE (2) UTI (urinary tract infection) Current Visit: Yes Status: Acute Assessment & Plan: with Positive urine culture and the clinical history of the aspiration starting the illness will add ceftriaxone now despite the c. diff as it appears clinically that much of her initial sepsis could have been due more to the aspiration pneumonia or UTI Code(s): N39.0 - URINARY TRACT INFECTION, SITE NOT SPECIFIED (3) Aspiration pneumonia Current Visit: Yes Status: Acute Assessment & Plan: cover with rocephine and flagyl for the anaerobes. repeat cxr today with worsening right base findings. 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
[2016-12-06] MEDS: NORCO 5/325 MG PO PRN (21:18)
[2016-12-06] MEDS: xanAX 0.5 MG PO SCH (21:54)
[2016-12-06] MEDS: Xalatan OP SCH (22:03)
[2016-12-07] MEDS: FLAGYL 500 MG IVPB 500 MG/100 ML BAG IV SCH ×2 (01:45→06:39)
[2016-12-07 05:44] LABS: Mean Cell Volume 92.9 fl (78-100); Mean Platelet Volume 11.8 fl (6-9.5); Platelet Count 163 K/mm3 (150-450); Red Blood Count 3.51 M/mm3 (4.1-5.4); Red Cell Distribution Width 14.6 % (11.5-14.0)
[2016-12-07 06:01] LABS: ANION GAP 7.1 MEQ/L (5-15); BLOOD UREA NITROGEN 8 mg/dL (9-20); CHLORIDE 111 mEq/L (98-107); Carbon Dioxide 28.2 mEq/L (21-32); Glucose 97 MG/DL (70-110); SODIUM 145 mEq/L (136-145)
[2016-12-07 06:05] LABS: Potassium 2.9 mEq/L (3.5-5.1)
--- NOTE | 2016-12-07 08:34 | PCM.DCORD ---
- Discharge Discharge Date: 12/07/16 Disposition: DC TO ANY "OTHER" LONGTERM Condition: Fair Prescriptions: New Metronidazole 500 mg [Flagyl 500 MG] 500 mg PO TID #30 tablet Potassium Chloride 8 meq PO TID #90 capsule.er Cefpodoxime Proxetil 200 mg [Vantin 200 mg] 200 mg PO BID #14 tablet Continue Hydrocodone Bit/Acetaminophen [[place] 5-325 Tablet] 1 each PO Q4-6HPRN PRN PRN Reason: Pain Alprazolam [Xanax] 0.5 mg PO DAILY Sucralfate 1 gm [Carafate 1 GM] 1 gm PO QID Omeprazole 20 MG [Prilosec 20 mg] 20 mg PO DAILY Latanoprost 2.5 ml OP DAILY Ipratropium/Albuterol Sulfate [Iprat-Albut 0.5-3(2.5) mg/3 ml] 3 ml IH Q6H PRN PRN PRN Reason: Shortness Of Breath Carbidopa/Levodopa [Carbidopa-Levo 25-100 Tab] 1 each PO TID Carbidopa/Levodopa [Carbidopa-Levo 10-100 mg Odt] 1 each PO TID Calcium Carbonate [Calcium] 600 mg PO DAILY Aspirin 81 mg PO DAILY Lorazepam 0.25 mg PO DAILY Sennosides [Senokot] 8.6 mg PO BID Vitamin E 400 unit PO DAILY Ascorbic Acid 500 mg [Vitamin C 500 MG] 500 mg PO DAILY Escitalopram Oxalate 10 mg [Lexapro 10 MG] 20 mg PO DAILY Cyclosporine [Restasis] 0.05 drop OP BID Diclofenac Sodium Gel [Voltaren GEL] 1 gm TOP BIDPRN PRN PRN Reason: Pain Additional Instructions: Ok to d/c to [facility] after the potassium infusion BMP on Saturday C. diff contact precautions follow speech therapy recommendations on diet Follow up with: MARCI KITCHEN [Primary Care Provider] - Forms: Patient Portal Information
[2016-12-07] MEDS ORDERED: Sodium Chloride 0.9% 500 ML 500 ML IV SCH (09:00)
[2016-12-07] MEDS: POTASSIUM CHLORIDE 20 mEq IN WATER 100ML 100 ML IV SCH ×2 (09:02→10:41)
[2016-12-07] MEDS: ECOTRIN 81 MG PO SCH (10:47)
[2016-12-07] MEDS: Vitamin C 500 MG PO SCH (10:47)
[2016-12-07] MEDS: Protonix 40MG Tablet PO SCH (10:47)
[2016-12-07] MEDS: Lexapro 10 MG PO SCH (10:47)
[2016-12-07] MEDS: Sinemet 10/100 MG PO SCH (10:47)
[2016-12-07] MEDS: ENOXAPARIN SODIUM SQ SCH (10:47)
[2016-12-07] MEDS: Ativan 0.5 MG PO SCH (10:47)
[2016-12-07] MEDS: Sinemet 25/100 MG PO SCH (10:47)
[2016-12-07] MEDS: ROCEPHIN 1 Gm-D5w 50 ml Bag** 1 G/50 ML IVPB IV SCH (10:48)
[2016-12-07] MEDS: NORCO 5/325 MG PO PRN (10:50)
[2016-12-07] MEDS ORDERED: TYLENOL EXTRA STRENGTH 500 MG PO ONE (12:00)
[2016-12-07 13:41] VITALS: PULSE 83
[2016-12-07 15:39] VITALS: BP 162/72; O2SAT 91
--- NOTE | 2016-12-07 20:51 | PCM.DS ---
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 On arrival she was treated for aspiration pneumonia with zosyn that evening however she spiked a fever to 106 and was cooled with ice and rectal tylenol improved and was having frequent severe watery stools that were c. diff positive. The zosyn was stopped on hospital day 1 and changed to vanc po and iv flagyl and her fever began to improve. She had swallow evaluation showing aspiration and diet modification was made and she continued to eat well. Urine culture at time of presentation showed E. Coli and her diarrhea quickly improved and no diarrhea the day prior to discharge. Given severity of her aspiration symptoms and her sepsis she was started on Rocephin as well for coverage of UTI and gram+/neg for aspiration with the flagyl covering the anaerobes for aspiration. She did well and remained afebrile. She did require potassium supplementation but her diarrhea has stopped. She was on 2 L NC O2 and was frustrated the prior evening with lack of quick results to her shouts for help and requesting to be discharged back to [facility]. WIth her clinical improvement she was given a 40 mEq KCl rider and after completion will complete treatment at [facility] with change in antibiotics to po flagyl to cover anaerobes in aspiration and the c. diff and vantin to cover the UTI/ Pneumonia. will check bmp on Saturday for potassium and start supplementation. Changed diet per speech recommendations. - Vitals & Intake/Output Vital Signs: Vital Signs Temperature 97.6 F 12/07/16 15:38 Pulse Rate 83 12/07/16 15:38 Respiratory Rate 22 12/07/16 15:38 Blood Pressure 162/72 12/07/16 15:38 O2 Sat by Pulse Oximetry 91 L 12/07/16 15:38 Oxygen-Last Documented O2 Percentage 2 Liters = 28% Intake & Output: Intake & Output 12/05/16 12/06/16 12/07/16 12/08/16 11:59 11:59 11:59 11:59 Intake Total 3644 740 120 Output Total 200 200 Balance -200 3444 740 120 Weight 73.624 kg 73.624 kg - Lab Result Diagrams: 12/07/16 05:25 12/07/16 05:25 Lab Results-Last 24 Hrs: Lab Results-Last 24 Hours 12/06/16 12/07/16 12/07/16 Range/Units 23:15 05:25 05:25 WBC 4.0 (4.0-10.5) K/mm3 RBC 3.51 L (4.1-5.4) M/mm3 Hgb 10.2 L (12.0-16.0) gm/dl Hct 32.6 L (35-47) % MCV 92.9 (78-100) fl MCH 29.0 (26-32) pg MCHC 31.3 L (32-36) g/dl RDW 14.6 H (11.5-14.0) % Plt Count 163 (150-450) K/mm3 MPV 11.8 H (6-9.5) fl Sodium 145 (136-145) mEq/L Potassium 3.1 L 2.9 L* (3.5-5.1) mEq/L Chloride 111 H (98-107) mEq/L Carbon Dioxide 28.2 (21-32) mEq/L Anion Gap 7.1 (5-15) MEQ/L BUN 8 L (9-20) mg/dL Creatinine 0.69 (0.55-1.30) mg/dl Estimated GFR > 60 ML/MIN Glucose 97 (70-110) MG/DL Calcium 7.6 L (8.5-10.1) mg/dL Micro Results-Entire Visit: Microbiology 12/05/16 05:39 Stool Culture - Preliminary Stool - Radiology Exams Ordered Rad Exams-Entire Visit: Radiology Procedures Category Date Time Status Portable Chest [CHEST 1 VIEW (PORTABLE)] Routine Exams 12/06/16 08:39 Completed - Procedures and Test Procedures and Tests throughout Hospitalization: Therapy Orders & Screens 12/04/16 22:22 Respiratory Nebulizer UD Comment: DUONEB Q6HPRN FOR SOB/WHEEZING Diagnosis: aspiration pneumonia 12/05/16 11:27 ST Screen per Nursing Assess once Comment: Protocol Order Physician Instructions: Greater than [address] Admission Screening Reason For Exam: Triggered on Admission Diagnosis: sepsis CVA/Dyshpagia/Aphasia: No Cognitive Deficits: Yes Dehydration/Nutrition Deficit: No Reflux: No Oral-Motor Difficulties: No Pneumonia: No [facility] Resident: Yes Total Points: 8 Discharge Exam General Appearance: no apparent distress Neurologic Exam: alert, oriented x 3, cooperative Skin Exam: warm, dry Eye Exam: No scleral icterus Ears, Nose, Throat Exam: moist mucous membranes Neck Exam: non-tender, supple Respiratory Exam: crackles/rales (bibasilar) Cardiovascular Exam: regular rate/rhythm, edema (trace to 1+ clay LE), No murmur Gastrointestinal/Abdomen Exam: soft, normal bowel sounds, No tenderness, No distention Extremity Exam: normal inspection, pedal edema, No calf tenderness Final Diagnosis/Problem List - Final Discharge Diagnosis/Problem (1) C. difficile diarrhea Status: Acute (2) UTI (urinary tract infection) Status: Acute (3) Aspiration pneumonia Status: Acute (4) Sepsis Status: Acute (5) Hypokalemia Status: Acute (6) Progressive supranuclear palsy Status: Chronic - Discharge Discharge Date: 12/07/16 Disposition: Skilled Care @ [facility] Condition: Fair Prescriptions: New Metronidazole 500 mg [Flagyl 500 MG] 500 mg PO TID #30 tablet Potassium Chloride 8 meq PO TID #90 capsule.er Cefpodoxime Proxetil 200 mg [Vantin 200 mg] 200 mg PO BID #14 tablet Continue Hydrocodone Bit/Acetaminophen [[place] 5-325 Tablet] 1 each PO Q4-6HPRN PRN PRN Reason: Pain Alprazolam [Xanax] 0.5 mg PO DAILY Sucralfate 1 gm [Carafate 1 GM] 1 gm PO QID Omeprazole 20 MG [Prilosec 20 mg] 20 mg PO DAILY Latanoprost 2.5 ml OP DAILY Ipratropium/Albuterol Sulfate [Iprat-Albut 0.5-3(2.5) mg/3 ml] 3 ml IH Q6H PRN PRN PRN Reason: Shortness Of Breath Carbidopa/Levodopa [Carbidopa-Levo 25-100 Tab] 1 each PO TID Carbidopa/Levodopa [Carbidopa-Levo 10-100 mg Odt] 1 each PO TID Calcium Carbonate [Calcium] 600 mg PO DAILY Aspirin 81 mg PO DAILY Lorazepam 0.25 mg PO DAILY Sennosides [Senokot] 8.6 mg PO BID Vitamin E 400 unit PO DAILY Ascorbic Acid 500 mg [Vitamin C 500 MG] 500 mg PO DAILY Escitalopram Oxalate 10 mg [Lexapro 10 MG] 20 mg PO DAILY Cyclosporine [Restasis] 0.05 drop OP BID Diclofenac Sodium Gel [Voltaren GEL] 1 gm TOP BIDPRN PRN PRN Reason: Pain Additional Instructions: Ok to d/c to [facility] after the potassium infusion [facility] ORDERS: BMP on Saturday C. diff contact precautions follow speech therapy recommendations on diet MECHANICAL SOFT DIET WITH HONEY THICK LIQUIDS CONT ALL OTHER [facility] ORDERS SEE ATTACHED MED LIST FOR CURRENT MED ORDERS DR. KITCHEN TO FOLLOW AT THE NE Follow up with: MARCI KITCHEN [Primary Care Provider] - Forms: Ambulance Transport Record, Patient Portal Information, Transfer Record [facility]
== END 2016-12-07 16:35 | DRG 371 ==
LOC: ED 19:05 → MED SURG 21:45
PROVIDERS: ADMIT Family Medicine; ATTEND Family Medicine
DX: A04.7 Enterocolitis due to Clostridium difficile (principal); J69.0 Pneumonitis due to inhalation of food and vomit; A41.9 Sepsis, unspecified organism; N39.0 Urinary tract infection, site not specified; G23.1 Progressive supranuclear ophthalmoplegia [Steele-Richardson-Olszewski]; E87.6 Hypokalemia; J44.9 Chronic obstructive pulmonary disease, unspecified; I10 Essential (primary) hypertension; K21.9 Gastro-esophageal reflux disease without esophagitis; M81.0 Age-related osteoporosis without current pathological fracture; Z79.899 Other long term (current) drug therapy
CPT/HCPCS: 36000; 36415; 36600; 70450; 71010; 80048; 80053; 81000; 82375; 82803; 82805; 83605; 83735; 84132; 85025; 85027; 85610; 85730; 87040; 87045; 87046; 87077; 87086; 87186; 87335; 87493; 93005; 93041; 94760; 94761; 94799; 99285; J0696; J1650; J2543; J3475; J3480; P9612; A9270-GY

== ENCOUNTER 2016-12-22 20:38 | Inpatient (IN) | payer MEDICARE ==
[2016-12-22] MEDS ORDERED: Sodium Chloride 0.9% 1000 ML 1,000 ML ONE ×3 (20:55→23:52)
[2016-12-22] MEDS ORDERED: Zofran 4 MG/2 ML VIAL IV ONE (21:21)
[2016-12-22] MEDS ORDERED: ROCEPHIN 1 Gm-D5w 50 ml Bag** 1 G/50 ML IVPB IV STA (21:21)
--- NOTE | 2016-12-22 21:26 | ERPHSYRPT ---
- History of Present Illness Time Seen by Provider: 12/22/16 21:14 Source: patient, other (N.N.) Exam Limitations: no limitations Patient Subjective Stated Complaint: reports from assisted living with c/o fever , lethargy, and vomiting of unknown onset/duration Triage Nursing Assessment: lifted to cart per ems personnel - moves all extremities with equal profound weakness. alert/oriented x 2 - flat affect. skin hot/flushed/dry - no rash/injury. resps easy - non-labored Physician History: REPORTEDLY PT HAS HAD FEVER, SORE THROAT, LETHARGY, VOMITING AND DIARRHEA TODAY. Allergies/Adverse Reactions: No Known Drug Allergies Allergy (Unverified 12/22/16 21:14) Home Medications: Alprazolam [Xanax] 0.5 mg PO DAILY 12/04/16 [History] Aspirin 81 mg PO DAILY 12/04/16 [History] Calcium Carbonate [Calcium] 600 mg PO DAILY 12/04/16 [History] Carbidopa/Levodopa [Carbidopa-Levo 10-100 mg Odt] 1 each PO TID 12/04/16 [ History] Carbidopa/Levodopa [Carbidopa-Levo 25-100 Tab] 1 each PO TID 12/04/16 [History] Hydrocodone Bit/Acetaminophen [[place] 5-325 Tablet] 1 each PO Q4-6HPRN PRN [History] Ipratropium/Albuterol Sulfate [Iprat-Albut 0.5-3(2.5) mg/3 ml] 3 ml IH Q6H PRN PRN 12/04/16 [History] Latanoprost 2.5 ml OP DAILY 12/04/16 [History] Lorazepam 0.25 mg PO DAILY 12/04/16 [History] Omeprazole 20 MG [Prilosec 20 mg] 20 mg PO DAILY 12/04/16 [History] Sucralfate 1 gm [Carafate 1 GM] 1 gm PO QID 12/04/16 [History] Ascorbic Acid 500 mg [Vitamin C 500 MG] 500 mg PO DAILY 12/05/16 [History] Cyclosporine [Restasis] 0.05 drop OP BID 12/05/16 [History] Diclofenac Sodium Gel [Voltaren GEL] 1 gm TOP BIDPRN PRN 12/05/16 [History ] Escitalopram Oxalate 10 mg [Lexapro 10 MG] 20 mg PO DAILY 12/05/16 [History] Sennosides [Senokot] 8.6 mg PO BID 12/05/16 [History] Vitamin E 400 unit PO DAILY 12/05/16 [History] Hx Tetanus, Diphtheria Vaccination/Date Given: Yes Hx Influenza Vaccination/Date Given: No Hx Pneumococcal Vaccination/Date Given: No Immunizations Up to Date: Yes - Review of Systems Constitutional: Fever, Lethargy Ears, Nose, & Throat: Throat Pain Cardiac: No Chest Pain Abdominal/Gastrointestinal: Vomiting, Diarrhea All Other Systems: Reviewed and Negative - Past Medical History Pertinent Past Medical History: Yes Neurological History: Other ENT History: Glaucoma Cardiac History: Hypertension Respiratory History: COPD Musculoskeletal History: Osteoporosis GI Medical History: GERD Psycho-Social History: Anxiety Other Medical History: Progressive Supranuclear Palsy - Past Surgical History Past Surgical History: (UNKNOWN) - Social History Smoking Status: Never smoker Exposure to second hand smoke: No Drug Use: none Patient Lives Alone: No - Female History Hx Last Menstrual Period: unknown - Nursing Vital Signs Nursing Vital Signs: Initial Vital Signs Temperature 101.0 F Temperature Source Rectal Pulse Rate 120 Respiratory Rate 18 Blood Pressure [] 115/90 Pain Intensity 0 - Physical Exam General Appearance: lethargy Eye Exam: other (DECREASED VISION IN RIGHT EYE) Ears, Nose, Throat Exam: dry mucous membranes, pharyngeal erythema Neck Exam: normal inspection Respiratory Exam: crackles/rales (MILD RALES OVER LEFT POSTERIOR BASE) Cardiovascular Exam: normal heart sounds Gastrointestinal/Abdomen Exam: soft, normal bowel sounds Back Exam: normal inspection Extremity Exam: other (DEFORMITY TO LEFT HAND) Neurologic Exam: cooperative Skin Exam: warm, dry SpO2 Interpretation: normal SpO2: 95 Oxygen Delivery: Room Air - Course Nursing assessment & vital signs reviewed: Yes - Radiology Exams Chest X-ray Interpretation: Interpreted by me, No Pneumonia - CT Exams Abdomen/Pelvis CT Interpretation: Tele-radiologist Report (A 1.4 CM PERIPHERALLY CALCIFIED AREA IN THE HILUS OF THE SPLEEN 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 THIS COULD BE CONFIRMED WITH POSTCONTRAST IMAGING IF THERE IS NO CONTRAINDICATION. THERE IS A HERNIA IN THE RIGHT ANTERIOR PELVIC REGION MEASURING UP TO 8.0 X 5.8 CM. THIS CONTAINS SEVERAL BOWEL LOOPS AND ON SAGITTAL IMAGES APPEARS TO CONTAIN A PORTION OF THE DECOMPRESSED BLADDER. THERE IS NO EVIDENCE OF INCARCERATION. THERE IS NO BOWEL DILATATION.) Ordered Tests: Active Orders 24 hr Category Date Time Status Facility Coordinator STAT Care 12/22/16 21:21 Active Catheter-Belen Núñez STAT Care 12/22/16 21:21 Active EKG-ER Only STAT Care 12/22/16 21:21 Active IV Insertion STAT Care 12/22/16 21:21 Active Pulse Oximetry (ED) STAT Care 12/22/16 21:21 Active ABDOMEN AND PELVIS W/0 CONTRAS [CT] Stat Exams 12/22/16 22:10 Taken CHEST 1 VIEW (PORTABLE) Stat Exams 12/22/16 21:23 Taken AMYLASE Stat Lab 12/22/16 21:35 Completed BLOOD CULTURE Stat Lab 12/22/16 21:35 Received CBC W DIFF Stat Lab 12/22/16 21:35 Completed CMP Stat Lab 12/22/16 21:35 Completed CULTURE, THROAT Stat Lab 12/22/16 21:40 Received CULTURE,SPUTUM Stat Lab 12/22/16 21:28 Ordered CULTURE,URINE Stat Lab 12/22/16 21:30 Received LIPASE Stat Lab 12/22/16 21:35 Completed Lactic Acid Stat Lab 12/22/16 21:38 Completed Lactic Acid Stat Lab 12/22/16 23:43 Completed Manual Differential NC Stat Lab 12/22/16 21:35 Completed [place] Screen Stat Lab 12/22/16 21:15 Completed PROTIME WITH INR Stat Lab 12/22/16 21:35 Completed PTT Stat Lab 12/22/16 21:35 Completed STREP SCREEN-BETA A Stat Lab 12/22/16 21:40 Completed UA W/ MICROSCOPIC Stat Lab 12/22/16 21:30 Completed Medication Summary Generic Name Dose Route Start Last Admin Trade Name Freq PRN Reason Stop Dose Admin Sodium Chloride 1,000 mls @ 999 mls/hr 12/22/16 21:30 12/22/16 23:52 Sodium Chloride 0.9% 1000 Ml IV 12/23/16 00:30 999 mls/hr .Q1H1M ANDER Administration Discontinued Medications Generic Name Dose Route Start Last Admin Trade Name Freq PRN Reason Stop Dose Admin Acetaminophen 975 mg 12/22/16 21:44 12/22/16 21:58 [place] 650 Mg MT 12/22/16 21:45 975 mg STAT STA Administration Acetaminophen Confirm 12/22/16 21:53 [place] 650 Mg Administered 12/22/16 21:54 Dose 1,300 mg .ROUTE .STK-MED ONE Sodium Chloride Confirm 12/22/16 20:55 Sodium Chloride 0.9% 1000 Ml Administered 12/22/16 20:56 Dose 1,000 mls @ ud .ROUTE .STK-MED ONE Ceftriaxone Sodium/Dextrose 1 g in 50 mls @ 100 mls/hr 12/22/16 21:21 21:37 Rocephin 1 Gm-D5w 50 Ml Bag IV 12/22/16 21:50 100 mls/hr STAT STA Administration Ceftriaxone Sodium/Dextrose Confirm 12/22/16 21:31 Rocephin 1 Gm-D5w 50 Ml Bag Administered 12/22/16 21:32 Dose 1 g in 50 mls @ ud IV .STK-MED ONE Ondansetron HCl 4 mg 12/22/16 21:21 12/22/16 21:37 Zofran 4 Mg/2 Ml Vial IV 12/22/16 21:22 4 mg STAT ONE Administration Ondansetron HCl Confirm 12/22/16 21:31 Zofran 4 Mg/2 Ml Vial Administered 12/22/16 21:32 Dose 4 mg .ROUTE .STK-MED ONE Lab/Rad Data: Laboratory Result Diagrams 12/22/16 21:35 12/22/16 21:35 Laboratory Results 12/22/16 12/22/16 12/22/16 Range/Units 23:43 21:40 21:38 WBC (4.0-10.5) K/mm3 RBC (4.1-5.4) M/mm3 Hgb (12.0-16.0) gm/dl Hct (35-47) % MCV (78-100) fl MCH (26-32) pg MCHC (32-36) g/dl RDW (11.5-14.0) % Plt Count (150-450) K/mm3 MPV (6-9.5) fl Segmented Neutrophils (36.0-66.0) % Lymphocytes (Manual) (24-44) % Monocytes (Manual) (0.0-12.0) % Differential Comment Platelet Estimate (NORMAL) INR (0.8-3.0) APTT (25.3-37.0) SECONDS Sodium (136-145) mEq/L Potassium (3.5-5.1) mEq/L Chloride (98-107) mEq/L Carbon Dioxide (21-32) mEq/L Anion Gap (5-15) MEQ/L BUN (9-20) mg/dL Creatinine (0.55-1.30) mg/dl Estimated GFR ML/MIN Glucose (70-110) MG/DL Lactic Acid 1.4 2.3 H (0.4-2.0) Calcium (8.5-10.1) mg/dL Total Bilirubin (0.2-1.0) mg/dL AST (15-37) U/L ALT (12-78) U/L Alkaline Phosphatase (46-116) U/L Serum Total Protein (6.4-8.2) gm/dL Albumin (3.4-5.0) g/dL Amylase (25-115) U/L Lipase (73-393) U/L Ur Collection Type Urine Color (YELLOW) Urine Appearance (CLEAR) Urine pH (5-6) Ur Specific [place] (1.005-1.025) Urine Protein (Negative) Urine Ketones (NEGATIVE) Urine Blood (0-5) [place]/ul Urine Nitrite (NEGATIVE) Urine Bilirubin (NEGATIVE) Urine Urobilinogen (0-1) mg/dL Ur Leukocyte Esterase (NEGATIVE) Urine Microscopic RBC (0-2) /HPF Urine Bacteria (NEGATIVE) /HPF Urine Glucose (NEGATIVE) mg/dL Monoscreen (Negative) Streptococcus Screen NEGATIVE (Negative) Specimen Received 12/22/16 12/22/16 12/22/16 Range/Units 21:35 21:35 21:35 WBC (4.0-10.5) K/mm3 RBC (4.1-5.4) M/mm3 Hgb (12.0-16.0) gm/dl Hct (35-47) % MCV (78-100) fl MCH (26-32) pg MCHC (32-36) g/dl RDW (11.5-14.0) % Plt Count (150-450) K/mm3 MPV (6-9.5) fl Segmented Neutrophils (36.0-66.0) % Lymphocytes (Manual) (24-44) % Monocytes (Manual) (0.0-12.0) % Differential Comment Platelet Estimate (NORMAL) INR 1.09 (0.8-3.0) APTT 29.9 (25.3-37.0) SECONDS Sodium 144 (136-145) mEq/L Potassium 3.6 (3.5-5.1) mEq/L Chloride 109 H (98-107) mEq/L Carbon Dioxide 24.2 (21-32) mEq/L Anion Gap 14.0 (5-15) MEQ/L BUN 22 H (9-20) mg/dL Creatinine 0.99 (0.55-1.30) mg/dl Estimated GFR 58 ML/MIN Glucose 120 H (70-110) MG/DL Lactic Acid (0.4-2.0) Calcium 8.4 L (8.5-10.1) mg/dL Total Bilirubin 0.30 (0.2-1.0) mg/dL AST 14 L (15-37) U/L ALT 7 L (12-78) U/L Alkaline Phosphatase 32 L (46-116) U/L Serum Total Protein 6.0 L (6.4-8.2) gm/dL Albumin 2.7 L (3.4-5.0) g/dL Amylase 125 H (25-115) U/L Lipase 2064 H (73-393) U/L Ur Collection Type Urine Color (YELLOW) Urine Appearance (CLEAR) Urine pH (5-6) Ur Specific [place] (1.005-1.025) Urine Protein (Negative) Urine Ketones (NEGATIVE) Urine Blood (0-5) Jose [place]/ul Urine Nitrite (NEGATIVE) Urine Bilirubin (NEGATIVE) Urine Urobilinogen (0-1) mg/dL Ur Leukocyte Esterase (NEGATIVE) Urine Microscopic RBC (0-2) /HPF Urine Bacteria (NEGATIVE) /HPF Urine Glucose (NEGATIVE) mg/dL Monoscreen (Negative) Streptococcus Screen (Negative) Specimen Received 12/22/16 12/22/16 12/22/16 Range/Units 21:35 21:30 21:15 WBC 9.1 (4.0-10.5) K/mm3 RBC 3.76 L (4.1-5.4) M/mm3 Hgb 11.3 L (12.0-16.0) gm/dl Hct 35.2 (35-47) % MCV 93.6 (78-100) fl MCH 30.0 (26-32) pg MCHC 32.1 (32-36) g/dl RDW 15.2 H (11.5-14.0) % Plt Count 227 (150-450) K/mm3 MPV 11.1 H (6-9.5) fl Segmented Neutrophils 90 H (36.0-66.0) % Lymphocytes (Manual) 6 L (24-44) % Monocytes (Manual) 4 (0.0-12.0) % Differential Comment NORMAL Platelet Estimate NORMAL (NORMAL) INR (0.8-3.0) APTT (25.3-37.0) SECONDS Sodium (136-145) mEq/L Potassium (3.5-5.1) mEq/L Chloride (98-107) mEq/L Carbon Dioxide (21-32) mEq/L Anion Gap (5-15) MEQ/L BUN (9-20) mg/dL Creatinine (0.55-1.30) mg/dl Estimated GFR ML/MIN Glucose (70-110) MG/DL Lactic Acid (0.4-2.0) Calcium (8.5-10.1) mg/dL Total Bilirubin (0.2-1.0) mg/dL AST (15-37) U/L ALT (12-78) U/L Alkaline Phosphatase (46-116) U/L Serum Total Protein (6.4-8.2) gm/dL Albumin (3.4-5.0) g/dL Amylase (25-115) U/L Lipase (73-393) U/L Ur Collection Type CATH Urine Color YELLOW (YELLOW) Urine Appearance CLEAR (CLEAR) Urine pH 5.0 (5-6) Ur Specific [place] 1.020 (1.005-1.025) Urine Protein TRACE (Negative) Urine Ketones SMALL (NEGATIVE) Urine Blood 250 (0-5) Jose Maria/ul Urine Nitrite NEGATIVE (NEGATIVE) Urine Bilirubin NEGATIVE (NEGATIVE) Urine Urobilinogen NORMAL (0-1) mg/dL Ur Leukocyte Esterase NEGATIVE (NEGATIVE) Urine Microscopic RBC 5-10 (0-2) /HPF Urine Bacteria RARE (NEGATIVE) /HPF Urine Glucose NEGATIVE (NEGATIVE) mg/dL Monoscreen NEGATIVE (Negative) Streptococcus Screen (Negative) Specimen Received 12/22/16:2130 - Progress Discussed with DrLazarus: Babatunde (OBS - [id number]) - Departure Time of Disposition: 00:36 Departure Disposition: Observation Clinical Impression: VOMITING, FEVER, ELEVATED LIPASE, ELEVATED LACTIC ACID, HTN, COPD, GERD, ANXIETY Condition: Stable Critical Care Time: No Referrals: MARCI KITCHEN [Primary Care Provider] -
[2016-12-22] MEDS ORDERED: ROCEPHIN 1 Gm-D5w 50 ml Bag** 1 G/50 ML IVPB IV ONE (21:31)
[2016-12-22] MEDS ORDERED: Zofran 4 MG/2 ML VIAL ONE (21:31)
[2016-12-22] MEDS: Sodium Chloride 0.9% 1000 ML 1,000 ML IV SCH ×3 (21:37→23:52)
[2016-12-22 21:40] LABS: Mean Cell Volume 93.6 fl (78-100); Mean Platelet Volume 11.1 fl (6-9.5); Platelet Count 227 K/mm3 (150-450); Red Blood Count 3.76 M/mm3 (4.1-5.4); Red Cell Distribution Width 15.2 % (11.5-14.0); White Blood Count 9.1 K/mm3 (4.0-10.5)
[2016-12-22 21:43] LABS: Lactic Acid 2.3 (0.4-2.0)
[2016-12-22] MEDS ORDERED: FEVERALL 650 MG PR STA (21:44)
[2016-12-22 21:47] LABS: INR 1.09 (0.8-3.0); PROTIME 12.3 SECONDS (9.95-12.35)
[2016-12-22 21:50] LABS: PTT 29.9 SECONDS (25.3-37.0)
[2016-12-22 21:53] LABS: Bacteria RARE /HPF (NEGATIVE); Bilirubin NEGATIVE (NEGATIVE); Blood 250 Ery/ul (0-5); COMPLETE URINE MICROSCOPIC? YES; Collection Type CATH; Glucose NEGATIVE (NEGATIVE); Leukocyte Esterase NEGATIVE (NEGATIVE)
[2016-12-22] MEDS ORDERED: FEVERALL 650 MG ONE (21:53)
[2016-12-22 21:57] LABS: ALBUMIN 2.7 g/dL (3.4-5.0); BILIRUBIN,TOTAL 0.3 mg/dL (0.2-1.0); Carbon Dioxide 24.2 mEq/L (21-32); Potassium 3.6 mEq/L (3.5-5.1)
[2016-12-22 22:01] LABS: LIPASE 2064 U/L (73-393)
[2016-12-22 23:37] LABS: Platelet Estimate NORMAL (NORMAL); Total Cells Counted 100
[2016-12-23] MEDS ORDERED: TORAdol 30 mg Injection ONE (00:43)
[2016-12-23] MEDS ORDERED: TORAdol 30 mg Injection IV ONE (00:53)
[2016-12-23] MEDS ORDERED: Phenergan 25 MG INJ IV PRN (01:51)
[2016-12-23] MEDS ORDERED: DUONEB 0.5-3 MG/3 ml Neb IH PRN (01:58)
[2016-12-23] MEDS: Sodium Chloride 0.9% 1000 ML 1,000 ML IV SCH ×2 (02:59→13:46)
[2016-12-23 05:58] LABS: BASOPHIL % 0.5 % (0.0-0.4); Eosinophil % 0.2 % (0.00-5.0); Granulocytes % 75.6 % (36.0-66.0); Mean Cell Volume 95.1 fl (78-100); Mean Platelet Volume 11.5 fl (6-9.5); Monocytes % 6.7 % (0.0-12.0); Platelet Count 193 K/mm3 (150-450); Red Blood Count 3.28 M/mm3 (4.1-5.4); Red Cell Distribution Width 15.3 % (11.5-14.0); White Blood Count 4.1 K/mm3 (4.0-10.5)
[2016-12-23 06:07] LABS: Mean Corpuscular Hemoglobin 30.1 pg (26-32)
[2016-12-23 06:17] LABS: ALBUMIN 2.1 g/dL (3.4-5.0); ALKALINE PHOSPHATASE 23 U/L (46-116); ANION GAP 12.1 MEQ/L (5-15); BLOOD UREA NITROGEN 19 mg/dL (9-20); CHLORIDE 113 mEq/L (98-107); Carbon Dioxide 25.7 mEq/L (21-32); Glucose 94 MG/DL (70-110); LIPASE 942 U/L (73-393); MAGNESIUM 1.6 mg/dL (1.8-2.4); Potassium 3.5 mEq/L (3.5-5.1); SGOT/AST 13 U/L (15-37); SGPT/ALT 7 U/L (12-78); SODIUM 147 mEq/L (136-145); Total Protein 5.1 gm/dL (6.4-8.2)
[2016-12-23 06:29] LABS: TROPONIN < 0.017 ng/ml (0.000-0.056)
--- NOTE | 2016-12-23 07:18 | XRAY ---
Indication: Fever. Possible sepsis. Comparison: December 06, 2016. Portable chest again demonstrates minimal bibasilar atelectasis/scarring. Remaining lungs clear. Heart is not enlarged. No new/acute findings.
--- NOTE | 2016-12-23 07:27 | XRAY ---
Indication: Fever, diarrhea, lethargy, and emesis. Multiple contiguous axial images obtained through the abdomen and pelvis without contrast as ordered. Comparison: None Study slightly degraded by respiration artifact. Lung bases demonstrates mild bibasilar dependent atelectasis. Heart is not enlarged. Small hiatal hernia. Noncontrasted stomach and bowel loops appear nonobstructed. There is mild diffuse fluid distended small and large bowel loops with fluid leveling, ileus versus enterocolitis. Sigmoid colon demonstrates mild wall thickening with minimal stranding favoring colitis. No free fluid/air. Moderate-sized right lower quadrant ventral hernia with loop of small bowel herniating without obstruction/incarceration. 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 Núñez catheter empties the bladder. Multiple distal periaortic surgical clips. Previous hysterectomy. Gallbladder not seen either contracted or surgically absent. Remaining liver, pancreas, spleen, adrenal glands, kidneys, and ureters appear unremarkable for noncontrast exam. Minimal aortoiliac calcifications without AAA. Osseous structures intact with moderate degenerative changes throughout the spine and mild levoscoliosis. There is 7 mm retrolisthesis of L2 on L3. Prominent T11 Schmorl node. Impression: 1. Fluid distended small and large bowel loops with fluid leveling, ileus versus enterocolitis. 2. Right lower quadrant ventral hernia with small bowel herniation. 3. Small hiatal hernia. 4. Small calcified splenic artery aneurysm. 5. Incidental chronic spinal findings detailed above. Comment: Preliminary interpretation was made by [facility]. Small and large bowel findings not reported. I gave telephone report to Dr. Poe at 0730 hrs. on December 23, 2016.
--- NOTE | 2016-12-23 08:47 | PCM.HP ---
History of Present Illness - Chief Complaint Chief Complaint: dehydration History of Present Illness: is a 81 year old female who was brought to ER from [facility], she had vomiting, fever and diarrhea. Had been lethargic, feeling poorly and not acting like herself. She is confused and unable to give any history. - Review of Systems Constitutional: Fever, Chills Respiratory: No Cough, No Short Of Breath Cardiac: No Chest Pain, No Edema, No Syncope Abdominal/Gastrointestinal: Nausea, Vomiting, Diarrhea Genitourinary Symptoms: No Dysuria Skin: No Rash All Other Systems: Reviewed and Negative Medications & Allergies Home Medications: Home Medication List Alprazolam [Xanax] 0.25 mg PO DAILY PRN PRN 12/04/16 [History Confirmed 12/23/16 ] Aspirin 81 mg PO DAILY 12/04/16 [History Confirmed 12/23/16] Calcium Carbonate [Calcium] 600 mg PO DAILY 12/04/16 [History Confirmed 12/23/16 ] Carbidopa/Levodopa [Carbidopa-Levo 10-100 mg Odt] 1 each PO TID 12/04/16 [ History Confirmed 12/23/16] Hydrocodone Bit/Acetaminophen [[place] 5-325 Tablet] 1 each PO Q4HPRN PRN [History Confirmed 12/23/16] Ipratropium/Albuterol Sulfate [Iprat-Albut 0.5-3(2.5) mg/3 ml] 3 ml IH Q6H PRN PRN 12/04/16 [History Confirmed 12/23/16] Latanoprost 1 drop OP DAILY 12/04/16 [History Confirmed 12/23/16] Omeprazole 20 MG [Prilosec 20 mg] 20 mg PO DAILY 12/04/16 [History Confirmed ] Sucralfate 1 gm [Carafate 1 GM] 1 gm PO QID 12/04/16 [History Confirmed ] Ascorbic Acid 500 mg [Vitamin C 500 MG] 500 mg PO DAILY 12/05/16 [History Confirmed 12/23/16] Cyclosporine [Restasis] 1 drop OP BID 12/05/16 [History Confirmed 12/23/16] Diclofenac Sodium Gel [Voltaren GEL] 1 applic TOP BIDPRN PRN 12/05/16 [ History Confirmed 12/23/16] Escitalopram Oxalate 10 mg [Lexapro 10 MG] 20 mg PO DAILY 12/05/16 [History Confirmed 12/23/16] Sennosides [Senokot] 8.6 mg PO BID 12/05/16 [History Confirmed 12/23/16] Vitamin E 400 unit PO DAILY 12/05/16 [History Confirmed 12/23/16] Potassium Chloride 8 meq PO TID #90 capsule.er 12/07/16 [Rx Confirmed 12/23/16] Acetaminophen 325 mg [Tylenol 325 mg] 650 mg PO Q4H PRN PRN 12/23/16 [ History Confirmed 12/23/16] Alprazolam 0.25 mg [xanAX 0.25 MG] 0.5 mg PO DAILY PRN PRN 12/23/16 [ History Confirmed 12/23/16] Carbidopa/Levodopa [Carbidopa-Levo 25-100 Tab] 1 tab PO DAILY 12/23/16 [History Confirmed 12/23/16] Diphenhydramine HCl 25 mg [Benadryl 25 mg Capsule] 25 mg PO Q6H PRN PRN [History Confirmed 12/23/16] Guaifenesin/Codeine Phosphate [Guaifenesin AC Cough Syrup] 5 ml PO Q8H PRN PRN 12/23/16 [History Confirmed 12/23/16] Guaifenesin/Codeine Phosphate [Guaifenesin-Codeine Syrup] 5 ml PO Q8H PRN PRN [History Confirmed 12/23/16] Melatonin 3 mg PO QHS 12/23/16 [History Confirmed 12/23/16] Polyethylene Glycol 3350 [Miralax] 17 gm PO DAILY PRN PRN 12/23/16 [History Confirmed 12/23/16] Allergies/Adverse Reactions: Allergies Allergy/AdvReac Type Severity Reaction Status Date / Time No Known Drug Allergies Allergy Verified 12/23/16 01:29 - Past Medical History Past Medical History: Yes Neurological History: Other ENT History: Glaucoma Cardiac History: Hypertension Respiratory History: COPD Endocrine Medical History: No Pertinent History Musculoskelatal History: Osteoporosis GI Medical History: GERD History: No Pertinent History Pyscho-Social History: Anxiety Reproductive Disorders: No Pertinent History Comment: glaucoma, progressive supranuclear ophthalmoplegia, dysphagia of oropharyngeal phase, frequent falls, osteoporosis, GERD, anxiety, constipation, hypertension, and insomnia - Female History Hx Last Menstrual Period: unknown Are you now?: No - Past Surgical History Past Surgical History: (UNKNOWN) - Social History Smoking Status: Never smoker Exposure to second hand smoke: No Alcohol: None Drug Use: none - Physical Exam Vital Signs: Vital Signs - 24 hr Temp Pulse Resp BP Pulse Ox 12/23/16 07:44 98.5 F 104 H 20 133/64 94 L 12/23/16 06:50 102 H 22 97 12/23/16 02:20 100 F 118 H 44 H 127/58 93 L 12/23/16 02:03 118 H 30 H 94 L 12/23/16 00:51 101.8 F 122 H 20 99 12/23/16 00:36 95 12/22/16 23:55 120 H 115/90 12/22/16 22:53 101.0 F 114 H 18 126/64 96 12/22/16 21:59 114 H 20 130/63 95 12/22/16 21:48 112 H 24 130/63 95 12/22/16 21:27 95 12/22/16 21:03 102.9 F 112 H 16 112/62 95 12/22/16 20:39 100.8 F 109 H 16 112/62 94 L Oxygen-Last 24 hours O2 Percentage 2 Liters = 28% O2 Percentage 2 Liters = 28% General Appearance: no apparent distress, alert Respiratory Exam: normal breath sounds, lungs clear, No respiratory distress Cardiovascular Exam: regular rate/rhythm, normal heart sounds, normal peripheral pulses Gastrointestinal/Abdomen Exam: soft Extremity Exam: normal inspection, normal range of motion, pelvis stable Results - Labs Lab/Micro Results: Lab Results-Last 24 Hours 12/23/16 12/23/16 12/23/16 Range/Units 05:00 05:20 05:20 WBC 4.1 (4.0-10.5) K/mm3 RBC 3.28 L (4.1-5.4) M/mm3 Hgb 9.9 L (12.0-16.0) gm/dl Hct 31.2 L (35-47) % MCV 95.1 (78-100) fl MCH 30.1 (26-32) pg MCHC 31.7 L (32-36) g/dl RDW 15.3 H (11.5-14.0) % Plt Count 193 (150-450) K/mm3 MPV 11.5 H (6-9.5) fl Gran % 75.6 H (36.0-66.0) % Lymphocytes % 17.0 L (24.0-44.0) % Monocytes % 6.7 (0.0-12.0) % Eosinophils % 0.2 (0.00-5.0) % Basophils % 0.5 (0.0-0.4) % Basophils # 0.02 (0-0.4) Sodium 147 H (136-145) mEq/L Potassium 3.5 (3.5-5.1) mEq/L Chloride 113 H (98-107) mEq/L Carbon Dioxide 25.7 (21-32) mEq/L Anion Gap 12.1 (5-15) MEQ/L BUN 19 (9-20) mg/dL Creatinine 0.87 (0.55-1.30) mg/dl Estimated GFR > 60 ML/MIN Glucose 94 (70-110) MG/DL Lactic Acid (0.4-2.0) Calcium 7.5 L (8.5-10.1) mg/dL Magnesium 1.6 L (1.8-2.4) mg/dL Total Bilirubin 0.20 (0.2-1.0) mg/dL AST 13 L (15-37) U/L ALT 7 L (12-78) U/L Alkaline Phosphatase 23 L (46-116) U/L Troponin I < 0.017 (0.000-0.056) ng/ml Serum Total Protein 5.1 L (6.4-8.2) gm/dL Albumin 2.1 L (3.4-5.0) g/dL Amylase 70 (25-115) U/L Lipase 942 H (73-393) U/L 12/23/16 Range/Units 05:20 WBC (4.0-10.5) K/mm3 RBC (4.1-5.4) M/mm3 Hgb (12.0-16.0) gm/dl Hct (35-47) % MCV (78-100) fl MCH (26-32) pg MCHC (32-36) g/dl RDW (11.5-14.0) % Plt Count (150-450) K/mm3 MPV (6-9.5) fl Gran % (36.0-66.0) % Lymphocytes % (24.0-44.0) % Monocytes % (0.0-12.0) % Eosinophils % (0.00-5.0) % Basophils % (0.0-0.4) % Basophils # (0-0.4) Sodium (136-145) mEq/L Potassium (3.5-5.1) mEq/L Chloride (98-107) mEq/L Carbon Dioxide (21-32) mEq/L Anion Gap (5-15) MEQ/L BUN (9-20) mg/dL Creatinine (0.55-1.30) mg/dl Estimated GFR ML/MIN Glucose (70-110) MG/DL Lactic Acid 1.1 (0.4-2.0) Calcium (8.5-10.1) mg/dL Magnesium (1.8-2.4) mg/dL Total Bilirubin (0.2-1.0) mg/dL AST (15-37) U/L ALT (12-78) U/L Alkaline Phosphatase (46-116) U/L Troponin I (0.000-0.056) ng/ml Serum Total Protein (6.4-8.2) gm/dL Albumin (3.4-5.0) g/dL Amylase (25-115) U/L Lipase (73-393) U/L - Other Procedures and Tests Respiratory Therapy 12/23/16 01:58 Oxygen NASAL CANNULA 2 lpm 12/23/16 02:00 Respiratory Nebulizer UD Assessment/Plan (1) Fever Current Visit: Yes Status: Acute Assessment & Plan: has low grade on floor, no obvious source. continue rocephin, awaiting blood cultures Code(s): R50.9 - FEVER, UNSPECIFIED (2) Vomiting Current Visit: Yes Status: Acute Assessment & Plan: resolved, elevated lipase improving, will give diet today and repeat in the am. no pain, nothing c/w acute pancreatitis at this time Code(s): R11.10 - VOMITING, UNSPECIFIED (3) Diarrhea Current Visit: Yes Status: Acute Code(s): R19.7 - DIARRHEA, UNSPECIFIED
[2016-12-23] MEDS ORDERED: Miralax Powder 17GM PACKET PO PRN (09:48)
[2016-12-23] MEDS ORDERED: xanAX 0.25 MG PO PRN (09:48)
[2016-12-23] MEDS ORDERED: xanAX 0.5 MG PO PRN (09:48)
[2016-12-23] MEDS ORDERED: NORCO 5/325 MG PO PRN (09:48)
[2016-12-23] MEDS ORDERED: NON-FORMULARY ITEM (Omeprazole 20 Mg [Prilosec 20 Mg] 20 MG) PO SCH (10:00)
[2016-12-23] MEDS ORDERED: NON-FORMULARY ITEM (Aspirin [Aspirin] 81 MG) PO SCH (10:00)
[2016-12-23] MEDS ORDERED: LEVODOPA PO SCH (10:00)
[2016-12-23] MEDS ORDERED: PROTONIX 40 MG IV IV SCH (10:00)
[2016-12-23] MEDS ORDERED: NON-FORMULARY ITEM (Cyclosporine [Restasis] 1 DROP) OP SCH (10:00)
[2016-12-23] MEDS ORDERED: NON-FORMULARY ITEM (Potassium Chloride [Potassium Chloride] 8 MEQ) PO SCH (10:00)
[2016-12-23] MEDS ORDERED: CARBIDOPA PO SCH (10:00)
[2016-12-23] MEDS ORDERED: MEDICATION INTERVENTION MC PRN (10:07)
[2016-12-23] MEDS: Xalatan OP SCH (10:30)
[2016-12-23] MEDS: SENOKOT 8.6 MG PO SCH ×2 (10:30→22:35)
[2016-12-23] MEDS: Klor Con 10 MEQ PO SCH ×3 (10:30→22:35)
[2016-12-23] MEDS: ECOTRIN 81 MG PO SCH (10:30)
[2016-12-23] MEDS: Sinemet 25/100 MG PO SCH (10:30)
[2016-12-23] MEDS: Sinemet 10/100 MG PO SCH ×3 (10:30→22:35)
[2016-12-23] MEDS: Protonix 40MG Tablet PO SCH (10:34)
[2016-12-23] MEDS: Lexapro 10 MG PO SCH (10:35)
[2016-12-23] MEDS: Carafate 1 GM PO SCH ×3 (10:52→22:35)
[2016-12-23] MEDS: TYLENOL 325 MG PO PRN ×2 (16:19→22:35)
[2016-12-23] MEDS ORDERED: ROCEPHIN 1 Gm-D5w 50 ml Bag** 1 G/50 ML IVPB IV SCH (22:00)
[2016-12-23] MEDS ORDERED: FLAGYL 500 MG IVPB 500 MG/100 ML BAG IV ONE (22:33)
[2016-12-24] MEDS: Sodium Chloride 0.9% 1000 ML 1,000 ML IV SCH (00:46)
[2016-12-24] MEDS: FLAGYL 500 MG IVPB 500 MG/100 ML BAG IV SCH ×5 (04:30→23:58)
[2016-12-24 05:56] LABS: Mean Cell Volume 93.9 fl (78-100); Mean Platelet Volume 11.8 fl (6-9.5); Platelet Count 183 K/mm3 (150-450); Red Blood Count 3.28 M/mm3 (4.1-5.4); Red Cell Distribution Width 14.9 % (11.5-14.0); White Blood Count 3.2 K/mm3 (4.0-10.5)
[2016-12-24 06:03] LABS: LIPASE 189 U/L (73-393)
[2016-12-24 06:05] LABS: Mean Corpuscular Hemoglobin 29.8 pg (26-32)
[2016-12-24 06:13] LABS: ALBUMIN 2.2 g/dL (3.4-5.0); ALKALINE PHOSPHATASE 23 U/L (46-116); ANION GAP 12.4 MEQ/L (5-15); BLOOD UREA NITROGEN 10 mg/dL (9-20); CHLORIDE 112 mEq/L (98-107); Carbon Dioxide 23.8 mEq/L (21-32); Glucose 86 MG/DL (70-110); SGOT/AST 22 U/L (15-37); SGPT/ALT 7 U/L (12-78); SODIUM 146 mEq/L (136-145); Total Protein 5.3 gm/dL (6.4-8.2)
[2016-12-24 06:32] LABS: Potassium 2.9 mEq/L (3.5-5.1)
[2016-12-24 07:23] LABS: ANISOCYTOSIS 1+; BAND 18 % (0.0-2.0); Platelet Estimate NORMAL (NORMAL); Poikilocytosis 1+; Total Cells Counted 100
[2016-12-24] MEDS: Carafate 1 GM PO SCH ×4 (07:41→22:02)
[2016-12-24] MEDS: POTASSIUM CHLORIDE 20 mEq IN WATER 100ML 100 ML IV SCH ×4 (07:48→20:33)
--- NOTE | 2016-12-24 08:12 | PCM.NOTE ---
Date and Time: 12/24/16811 Subjective Assessment: She is up eating this am excited about the [place] toast. She thinks she is feeling better now. She has not had diarrhea yet this am and the abdomen is not hurting her. Objective Exam General Appearance: no apparent distress Neurologic Exam: alert, oriented x 3, cooperative Skin Exam: warm, dry Eye Exam: pale conjunctivae Ears, Nose, Throat Exam: moist mucous membranes Neck Exam: non-tender, supple Respiratory Exam: lungs clear, No respiratory distress Cardiovascular Exam: regular rate/rhythm, normal heart sounds, edema Gastrointestinal/Abdomen Exam: soft, normal bowel sounds, No tenderness Extremity Exam: normal inspection, pedal edema OBJECTIVE DATA Vital Signs: Vital Signs - 24 hr Temp Pulse Resp BP Pulse Ox 12/24/16 07:50 99.1 F 132 H 18 136/84 97 12/24/16 04:47 98.6 F 83 28 H 138/62 97 12/24/16 02:00 98.7 F 12/24/16 00:00 101.2 F 98 H 24 127/58 96 12/23/16 21:22 90 30 H 97 12/23/16 20:00 99.0 F 90 30 H 132/63 97 12/23/16 16:00 103.1 F 105 H 22 151/70 92 L 12/23/16 12:00 100.9 F 100 H 24 141/72 94 L Oxygen-Last 24 hours O2 Percentage 2 Liters = 28% O2 Percentage 2 Liters = 28% O2 Percentage 2 Liters = 28% O2 Percentage 2 Liters = 28% O2 Percentage 2 Liters = 28% O2 Percentage 2 Liters = 28% Pain Assessment - Last Documented Pain Intensity 0 Pain Scale Used 0-10 Pain Scale Intake and Output: Intake & Output 12/21/16 12/22/16 12/23/16 12/24/16 11:59 11:59 11:59 11:59 Intake Total 112 2300 Output Total 250 950 Balance -138 1350 Weight 73.21 kg Lab Results: Lab Results-Last 24 Hours 12/23/16 12/24/16 12/24/16 Range/Units 20:05 05:08 05:08 WBC 3.2 L (4.0-10.5) K/mm3 RBC 3.28 L (4.1-5.4) M/mm3 Hgb 9.8 L (12.0-16.0) gm/dl Hct 30.8 L (35-47) % MCV 93.9 (78-100) fl MCH 29.8 (26-32) pg MCHC 31.8 L (32-36) g/dl RDW 14.9 H (11.5-14.0) % Plt Count 183 (150-450) K/mm3 MPV 11.8 H (6-9.5) fl Segmented Neutrophils 54 (36.0-66.0) % Band Neutrophils 18 H (0.0-2.0) % Lymphocytes (Manual) 21 L (24-44) % Monocytes (Manual) 7 (0.0-12.0) % Differential Comment ABNORMAL Platelet Estimate NORMAL (NORMAL) Poikilocytosis 1+ Anisocytosis 1+ Sodium 146 H (136-145) mEq/L Potassium 2.9 L* (3.5-5.1) mEq/L Chloride 112 H (98-107) mEq/L Carbon Dioxide 23.8 (21-32) mEq/L Anion Gap 12.4 (5-15) MEQ/L BUN 10 (9-20) mg/dL Creatinine 0.62 (0.55-1.30) mg/dl Estimated GFR > 60 ML/MIN Glucose 86 (70-110) MG/DL Calcium 7.1 L (8.5-10.1) mg/dL Total Bilirubin 0.20 (0.2-1.0) mg/dL AST 22 (15-37) U/L ALT 7 L (12-78) U/L Alkaline Phosphatase 23 L (46-116) U/L Serum Total Protein 5.3 L (6.4-8.2) gm/dL Albumin 2.2 L (3.4-5.0) g/dL Amylase (25-115) U/L Lipase (73-393) U/L Stl C. diff Tox B Gene POSITIVE (NEGATIVE) C.difficile 027-NAP1-B1 PRESUMPTIVE NEGATIVE (NEGATIVE) 12/24/16 Range/Units 05:08 WBC (4.0-10.5) K/mm3 RBC (4.1-5.4) M/mm3 Hgb (12.0-16.0) gm/dl Hct (35-47) % MCV (78-100) fl MCH (26-32) pg MCHC (32-36) g/dl RDW (11.5-14.0) % Plt Count (150-450) K/mm3 MPV (6-9.5) fl Segmented Neutrophils (36.0-66.0) % Band Neutrophils (0.0-2.0) % Lymphocytes (Manual) (24-44) % Monocytes (Manual) (0.0-12.0) % Differential Comment Platelet Estimate (NORMAL) Poikilocytosis Anisocytosis Sodium (136-145) mEq/L Potassium (3.5-5.1) mEq/L Chloride (98-107) mEq/L Carbon Dioxide (21-32) mEq/L Anion Gap (5-15) MEQ/L BUN (9-20) mg/dL Creatinine (0.55-1.30) mg/dl Estimated GFR ML/MIN Glucose (70-110) MG/DL Calcium (8.5-10.1) mg/dL Total Bilirubin (0.2-1.0) mg/dL AST (15-37) U/L ALT (12-78) U/L Alkaline Phosphatase (46-116) U/L Serum Total Protein (6.4-8.2) gm/dL Albumin (3.4-5.0) g/dL Amylase 25 (25-115) U/L Lipase 189 (73-393) U/L Stl C. diff Tox B Gene (NEGATIVE) C.difficile 027-NAP1-B1 (NEGATIVE) Assessment/Plan (1) C. difficile diarrhea Current Visit: Yes Status: Acute Assessment & Plan: the c. diff was positive she had findings of possible ileus on CT on arrival but yesterday with 8 liquid stools. She was given flagyl IV starting yesterday still febrile to 103 yesterday evening. 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 Code(s): G23.1 - PROGRESSIVE SUPRANUCLEAR OPHTHALMOPLEGIA
[2016-12-24] MEDS: Lexapro 10 MG PO SCH (09:55)
[2016-12-24] MEDS: Klor Con 10 MEQ PO SCH ×3 (09:55→22:02)
[2016-12-24] MEDS: ECOTRIN 81 MG PO SCH (09:55)
[2016-12-24] MEDS: NON-FORMULARY ITEM PO SCH ×4 (09:56→22:10)
[2016-12-24] MEDS: Sinemet 10/100 MG PO SCH ×3 (09:59→22:02)
[2016-12-24] MEDS: Protonix 40MG Tablet PO SCH (09:59)
[2016-12-24] MEDS ORDERED: VANCOCIN 500 MG VIAL PO SCH (10:00)
[2016-12-24] MEDS: Sinemet 25/100 MG PO SCH (10:00)
[2016-12-24] MEDS: Xalatan OP SCH (10:01)
[2016-12-24] MEDS: TYLENOL 325 MG PO PRN (19:42)
[2016-12-24] MEDS ORDERED: FLAGYL 500 MG IVPB 500 MG/100 ML BAG IV SCH (22:00)
[2016-12-25] MEDS: FLAGYL 500 MG IVPB 500 MG/100 ML BAG IV SCH (05:26)
[2016-12-25 05:35] LABS: Mean Cell Volume 91.4 fl (78-100); Mean Corpuscular Hemoglobin 29.5 pg (26-32); Mean Platelet Volume 11.3 fl (6-9.5); Platelet Count 211 K/mm3 (150-450); Red Blood Count 3.49 M/mm3 (4.1-5.4); Red Cell Distribution Width 14.6 % (11.5-14.0); White Blood Count 3.9 K/mm3 (4.0-10.5)
[2016-12-25 06:40] LABS: ANION GAP 11.3 MEQ/L (5-15); BLOOD UREA NITROGEN 4 mg/dL (9-20); CHLORIDE 111 mEq/L (98-107); Carbon Dioxide 25.7 mEq/L (21-32); Glucose 99 MG/DL (70-110); Potassium 3.1 mEq/L (3.5-5.1); SODIUM 145 mEq/L (136-145)
[2016-12-25] MEDS: Carafate 1 GM PO SCH (07:21)
[2016-12-25 07:32] LABS: Eosinophil 2 % (0.00-3.0); Platelet Estimate NORMAL (NORMAL); Total Cells Counted 100
--- NOTE | 2016-12-25 07:56 | PCM.DCORD ---
- Discharge Discharge Date: 12/25/16 Disposition: DC TO ANY "OTHER" INTERMEDIATE Condition: Fair Prescriptions: New Vancomycin HCl 125 mg PO Q6H #36 syringe Continue Hydrocodone Bit/Acetaminophen [[place] 5-325 Tablet] 1 each PO Q4HPRN PRN PRN Reason: Pain Alprazolam [Xanax] 0.25 mg PO DAILY PRN PRN PRN Reason: Anxiety Sucralfate 1 gm [Carafate 1 GM] 1 gm PO QID Omeprazole 20 MG [Prilosec 20 mg] 20 mg PO DAILY Latanoprost 1 drop OP DAILY Ipratropium/Albuterol Sulfate [Iprat-Albut 0.5-3(2.5) mg/3 ml] 3 ml IH Q6H PRN PRN PRN Reason: Shortness Of Breath Carbidopa/Levodopa [Carbidopa-Levo 10-100 mg Odt] 1 each PO TID Calcium Carbonate [Calcium] 600 mg PO DAILY Aspirin 81 mg PO DAILY Vitamin E 400 unit PO DAILY Ascorbic Acid 500 mg [Vitamin C 500 MG] 500 mg PO DAILY Escitalopram Oxalate 10 mg [Lexapro 10 MG] 20 mg PO DAILY Cyclosporine [Restasis] 1 drop OP BID Diclofenac Sodium Gel [Voltaren GEL] 1 applic TOP BIDPRN PRN PRN Reason: Pain Potassium Chloride 8 meq PO TID #90 capsule.er Acetaminophen 325 mg [Tylenol 325 mg] 650 mg PO Q4H PRN PRN PRN Reason: Pain And/Or Fever Polyethylene Glycol 3350 [Miralax] 17 gm PO DAILY PRN PRN PRN Reason: Constipation Melatonin 3 mg PO QHS Guaifenesin/Codeine Phosphate [Guaifenesin AC Cough Syrup] 5 ml PO Q8H PRN PRN PRN Reason: Cough Carbidopa/Levodopa [Carbidopa-Levo 25-100 Tab] 1 tab PO DAILY Alprazolam 0.25 mg [xanAX 0.25 MG] 0.5 mg PO DAILY PRN PRN PRN Reason: Anxiety Changed Sennosides [Senokot] 8.6 mg PO BID PRN #0 PRN Reason: Constipation Discontinued Guaifenesin/Codeine Phosphate [Guaifenesin-Codeine Syrup] 5 ml PO Q8H PRN PRN PRN Reason: Cough Diphenhydramine HCl 25 mg [Benadryl 25 mg Capsule] 25 mg PO Q6H PRN PRN PRN Reason: Itching Additional Instructions: ok to go to [facility] after K rider. No need to wait on repeat K. Repeat BMP and cbc in 1 week Follow up with: MARCI KITCHEN [Primary Care Provider] -
[2016-12-25] MEDS: POTASSIUM CHLORIDE 20 mEq IN WATER 100ML 100 ML IV SCH ×2 (08:10→10:08)
[2016-12-25] MEDS: Lexapro 10 MG PO SCH (10:07)
[2016-12-25] MEDS: Klor Con 10 MEQ PO SCH (10:07)
[2016-12-25] MEDS: Protonix 40MG Tablet PO SCH (10:08)
[2016-12-25] MEDS: Sinemet 10/100 MG PO SCH (10:08)
[2016-12-25] MEDS: ECOTRIN 81 MG PO SCH (10:08)
[2016-12-25] MEDS: Sinemet 25/100 MG PO SCH (10:08)
[2016-12-25] MEDS: NON-FORMULARY ITEM PO SCH (10:09)
[2016-12-25] MEDS: Xalatan OP SCH (10:10)
[2016-12-25 12:53] VITALS: BP 166/71; PULSE 79; O2SAT 92
--- NOTE | 2016-12-25 22:24 | PCM.DS ---
Discharge Summary Date of Admission: 12/23/16 08:44 Date of Discharge: 12/25/16 Admitting Physician: MARCI KITCHEN Primary Care Provider: MARCI KITCHEN Allergies Allergies No Known Drug Allergies Allergy (Verified 12/23/16 01:29) Hospital Summary - Hospital Course Hospital Course: she presented with confusion nausea vomiting diarrhea and fever found to have findings concerning for ileus on CT was febrile and tachycardic. She was started initially on Rocephin in ED and later found to be C. diff positive. She was given iv flagyl. SHe had frequent liquid stools on day 2 of admission and was still febrile. I saw her on Saturday was still having fever that early am and her rocephin was stopped and po vanc started and flagyl continued . She had no further fevers. Her mental status was improved she was tolerating po well. Shew as back to her baseline. She continues to have difficulty with swallowing talking and occular palsy with the progressively worsening PSP. This si a recurrence of a C. diff infection. Continue the vanc now. Her K was depleted and was replaced inpatient. - Vitals & Intake/Output Vital Signs: Vital Signs Temperature 98.9 F 12/25/16 11:00 Pulse Rate 79 12/25/16 11:00 Respiratory Rate 18 12/25/16 11:00 Blood Pressure 166/71 12/25/16 11:00 O2 Sat by Pulse Oximetry 92 L 12/25/16 11:00 Oxygen-Last Documented O2 Percentage 2 Liters = 28% Intake & Output: Intake & Output 12/23/16 12/24/16 12/25/16 12/26/16 11:59 11:59 11:59 11:59 Intake Total 2420 1319 Output Total 950 2900 Balance 1470 -1581 Weight 76.929 kg 73.028 kg - Lab Result Diagrams: 12/25/16 05:15 12/25/16 05:15 Lab Results-Last 24 Hrs: Lab Results-Last 24 Hours 12/25/16 12/25/16 12/25/16 Range/Units 02:41 05:15 05:15 WBC 3.9 L (4.0-10.5) K/mm3 RBC 3.49 L (4.1-5.4) M/mm3 Hgb 10.3 L (12.0-16.0) gm/dl Hct 31.9 L (35-47) % MCV 91.4 (78-100) fl MCH 29.5 (26-32) pg MCHC 32.3 (32-36) g/dl RDW 14.6 H (11.5-14.0) % Plt Count 211 (150-450) K/mm3 MPV 11.3 H (6-9.5) fl Segmented Neutrophils 71 H (36.0-66.0) % Lymphocytes (Manual) 18 L (24-44) % Monocytes (Manual) 9 (0.0-12.0) % Eosinophils (Manual) 2 (0.00-3.0) % Differential Comment NORMAL Platelet Estimate NORMAL (NORMAL) Sodium 145 (136-145) mEq/L Potassium 3.2 L 3.1 L (3.5-5.1) mEq/L Chloride 111 H (98-107) mEq/L Carbon Dioxide 25.7 (21-32) mEq/L Anion Gap 11.3 (5-15) MEQ/L BUN 4 L (9-20) mg/dL Creatinine 0.56 (0.55-1.30) mg/dl Estimated GFR > 60 ML/MIN Glucose 99 (70-110) MG/DL Calcium 7.6 L (8.5-10.1) mg/dL Discharge Exam General Appearance: no apparent distress, alert, obese Neurologic Exam: alert, oriented x 3, cooperative, normal mood/affect, nml cerebellar function, sensation nml, dysarthria (slow speech), No motor deficits Skin Exam: normal color, warm, dry Eye Exam: PERRL, eyes nml inspection, pale conjunctivae, No EOMI Ears, Nose, Throat Exam: normal ENT inspection, pharynx normal, moist mucous membranes Neck Exam: normal inspection, non-tender, supple, full range of motion Respiratory Exam: normal breath sounds, lungs clear, No respiratory distress Cardiovascular Exam: regular rate/rhythm, normal heart sounds Gastrointestinal/Abdomen Exam: soft, No tenderness, No mass Extremity Exam: normal inspection, normal range of motion Back Exam: normal inspection, normal range of motion, No CVA tenderness, No vertebral tenderness Pelvic Exam: deferred Rectal Exam: deferred Final Diagnosis/Problem List - Final Discharge Diagnosis/Problem (1) C. difficile diarrhea Status: Acute (2) Sepsis Status: Acute (3) Hypokalemia Status: Acute (4) Progressive supranuclear palsy Status: Chronic - Discharge Discharge Date: 12/25/16 Disposition: DC TO ANY "OTHER" SKILLED NURSING Condition: Fair Prescriptions: New Vancomycin HCl 125 mg PO Q6H #36 syringe Continue Hydrocodone Bit/Acetaminophen [[place] 5-325 Tablet] 1 each PO Q4HPRN PRN PRN Reason: Pain Alprazolam [Xanax] 0.25 mg PO DAILY PRN PRN PRN Reason: Anxiety Sucralfate 1 gm [Carafate 1 GM] 1 gm PO QID Omeprazole 20 MG [Prilosec 20 mg] 20 mg PO DAILY Latanoprost 1 drop OP DAILY Ipratropium/Albuterol Sulfate [Iprat-Albut 0.5-3(2.5) mg/3 ml] 3 ml IH Q6H PRN PRN PRN Reason: Shortness Of Breath Carbidopa/Levodopa [Carbidopa-Levo 10-100 mg Odt] 1 each PO TID Calcium Carbonate [Calcium] 600 mg PO DAILY Aspirin 81 mg PO DAILY Vitamin E 400 unit PO DAILY Ascorbic Acid 500 mg [Vitamin C 500 MG] 500 mg PO DAILY Escitalopram Oxalate 10 mg [Lexapro 10 MG] 20 mg PO DAILY Cyclosporine [Restasis] 1 drop OP BID Diclofenac Sodium Gel [Voltaren GEL] 1 applic TOP BIDPRN PRN PRN Reason: Pain Potassium Chloride 8 meq PO TID #90 capsule.er Acetaminophen 325 mg [Tylenol 325 mg] 650 mg PO Q4H PRN PRN PRN Reason: Pain And/Or Fever Polyethylene Glycol 3350 [Miralax] 17 gm PO DAILY PRN PRN PRN Reason: Constipation Melatonin 3 mg PO QHS Guaifenesin/Codeine Phosphate [Guaifenesin AC Cough Syrup] 5 ml PO Q8H PRN PRN PRN Reason: Cough Carbidopa/Levodopa [Carbidopa-Levo 25-100 Tab] 1 tab PO DAILY Alprazolam 0.25 mg [xanAX 0.25 MG] 0.5 mg PO DAILY PRN PRN PRN Reason: Anxiety Changed Sennosides [Senokot] 8.6 mg PO BID PRN #0 PRN Reason: Constipation Discontinued Guaifenesin/Codeine Phosphate [Guaifenesin-Codeine Syrup] 5 ml PO Q8H PRN PRN PRN Reason: Cough Diphenhydramine HCl 25 mg [Benadryl 25 mg Capsule] 25 mg PO Q6H PRN PRN PRN Reason: Itching Additional Instructions: ok to go to [facility] after K rider. No need to wait on repeat K. Repeat BMP and cbc in 1 week Follow up with: MARCI KITCHEN [Primary Care Provider] -
== END 2016-12-25 12:10 | DRG 371 ==
LOC: ED 20:38 → OBSVTOIN 12-23 01:10 → INTOOBSV 12-23 01:10 → MED SURG 12-23 01:10 → INTOOBSV 12-23 08:44 → OBSVTOIN 12-23 08:44
PROVIDERS: ADMIT Family Medicine; ATTEND Family Medicine
DX: A04.7 Enterocolitis due to Clostridium difficile (principal); A41.9 Sepsis, unspecified organism; G23.1 Progressive supranuclear ophthalmoplegia [Steele-Richardson-Olszewski]; E87.6 Hypokalemia; Z79.899 Other long term (current) drug therapy; I10 Essential (primary) hypertension; J44.9 Chronic obstructive pulmonary disease, unspecified; M81.0 Age-related osteoporosis without current pathological fracture; K21.9 Gastro-esophageal reflux disease without esophagitis; F41.9 Anxiety disorder, unspecified; R29.6 Repeated falls; G47.00 Insomnia, unspecified; R50.9 Fever, unspecified; R74.8 Abnormal levels of other serum enzymes
CPT/HCPCS: 36000; 36415; 51702; 71010; 74176; 80048; 80053; 81000; 82150; 83605; 83690; 83735; 84132; 84484; 85025; 85610; 85730; 86308; 87040; 87070; 87077; 87086; 87186; 87430; 87493; 93005; 93041; 94760; 96360; 96361; 96365; 96374; 96375; 99285; J0696; J1885; J2405; J3480; A9270-GY

== ENCOUNTER 2017-01-12 20:06 | Inpatient (IN) | payer MEDICARE ==
[2017-01-12] MEDS ORDERED: Sodium Chloride 0.9% 1000 ML 1,000 ML IV STA (20:55)
[2017-01-12] MEDS ORDERED: Sodium Chloride 0.9% 1000 ML 1,000 ML ONE (20:57)
--- NOTE | 2017-01-12 20:58 | ERPHSYRPT ---
- History of Present Illness Time Seen by Provider: 01/12/17 20:55 Source: patient Exam Limitations: no limitations Patient Subjective Stated Complaint: pt unable to give hx. per [place] staff, pt has had increased weakness today, slurred speech, increased pulse, and temp, and 3 episodes of incont diarrhea with bright red blood. states pt has been declining for last 2 months. Triage Nursing Assessment: pt awake. answers some questions approp. oriented to person at this time. lt sided weakness from previous cva and lt foot drop noted. opens eyes to voice, follows commands. respirations nonlabored with lungs cta. 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 Physician History: 81-year-old white female with chronic left-sided weakness, progressive super nuclear palsy, [facility] with complaint of a being increased confusion today. Incontinent diarrhea with blood increasing weakness slurry speech symptoms today sent from [facility] Past medical history includes hypertension COPD osteoporosis anxiety progressive supranuclear palsy Timing/Duration: today Severity: moderate Associated Symptoms: fever, weakness, other (slurry speech, diarrhea with blood) , No nausea, No vomiting, No abdominal pain, No shortness of breath, No heartburn, No diaphoresis, No cough, No chills, No chest pain, No headaches, No loss of appetite, No malaise, No rash, No syncope, No seizure Allergies/Adverse Reactions: No Known Drug Allergies Allergy (Verified 12/23/16 01:29) Home Medications: Alprazolam [Xanax] 0.25 mg PO DAILY PRN PRN 12/04/16 [History] Aspirin 81 mg PO DAILY 12/04/16 [History] Calcium Carbonate [Calcium] 600 mg PO DAILY 12/04/16 [History] Carbidopa/Levodopa [Carbidopa-Levo 10-100 mg Odt] 1 each PO TID 12/04/16 [ History] Hydrocodone Bit/Acetaminophen [[place] 5-325 Tablet] 1 each PO Q4HPRN PRN [History] Ipratropium/Albuterol Sulfate [Iprat-Albut 0.5-3(2.5) mg/3 ml] 3 ml IH Q6H PRN PRN 12/04/16 [History] Latanoprost 1 drop OP DAILY 12/04/16 [History] Omeprazole 20 MG [Prilosec 20 mg] 20 mg PO DAILY 12/04/16 [History] Sucralfate 1 gm [Carafate 1 GM] 1 gm PO QID 12/04/16 [History] Ascorbic Acid 500 mg [Vitamin C 500 MG] 500 mg PO DAILY 12/05/16 [History] Cyclosporine [Restasis] 1 drop OP BID 12/05/16 [History] Diclofenac Sodium Gel [Voltaren GEL] 1 applic TOP BIDPRN PRN 12/05/16 [ History] Escitalopram Oxalate 10 mg [Lexapro 10 MG] 20 mg PO DAILY 12/05/16 [History] Vitamin E 400 unit PO DAILY 12/05/16 [History] Acetaminophen 325 mg [Tylenol 325 mg] 650 mg PO Q4H PRN PRN 12/23/16 [ History] Alprazolam 0.25 mg [xanAX 0.25 MG] 0.5 mg PO DAILY PRN PRN 12/23/16 [ History] Carbidopa/Levodopa [Carbidopa-Levo 25-100 Tab] 1 tab PO DAILY 12/23/16 [History] Guaifenesin/Codeine Phosphate [Guaifenesin AC Cough Syrup] 5 ml PO Q8H PRN PRN 12/23/16 [History] Melatonin 3 mg PO QHS 12/23/16 [History] Polyethylene Glycol 3350 [Miralax] 17 gm PO DAILY PRN PRN 12/23/16 [History] Hx Tetanus, Diphtheria Vaccination/Date Given: Yes Hx Influenza Vaccination/Date Given: No Hx Pneumococcal Vaccination/Date Given: No Immunizations Up to Date: Yes - Review of Systems Constitutional: Fever, Weakness, No Chills, No Fatigue, No Lethargy, No Malaise , No Night Sweats Eyes: No Symptoms Ears, Nose, & Throat: No Symptoms Respiratory: No Cough, No Dyspnea Cardiac: No Chest Pain, No Edema, No Syncope Abdominal/Gastrointestinal: No Abdominal Pain, No Nausea, No Vomiting, No Diarrhea Genitourinary Symptoms: No Dysuria Musculoskeletal: Other (chronic left-sided weakness), No Back Pain, No Neck Pain Neurological: Other (chronic left-sided weakness, progressive supranuclear palsy) Psychological: No Symptoms Endocrine: No Symptoms All Other Systems: Reviewed and Negative - Past Medical History Pertinent Past Medical History: Yes Neurological History: Stroke, Other ENT History: Glaucoma Cardiac History: Hypertension Respiratory History: COPD Endocrine Medical History: No Pertinent History Musculoskeletal History: Osteoporosis GI Medical History: GERD History: No Pertinent History Psycho-Social History: Anxiety Female Reproductive Disorders: No Pertinent History Other Medical History: glaucoma, progressive supranuclear ophthalmoplegia, dysphagia of oropharyngeal phase, frequent falls, osteoporosis, GERD, anxiety, constipation,hypertension, and insomnia - Past Surgical History Past Surgical History: (UNKNOWN) - Social History Smoking Status: Never smoker Exposure to second hand smoke: No Drug Use: none Patient Lives Alone: No - Nursing Vital Signs Nursing Vital Signs: Initial Vital Signs Temperature 101.0 F Temperature Source Rectal Pulse Rate 106 Respiratory Rate 32 Blood Pressure [] 145/71 - Physical Exam General Appearance: other (elderly white female somnolent and arouses easily) Eye Exam: PERRL/EOMI, eyes nml inspection Ears, Nose, Throat Exam: normal ENT inspection, TMs normal, pharynx normal, moist mucous membranes Neck Exam: normal inspection, non-tender, supple, full range of motion Respiratory Exam: normal breath sounds, lungs clear, No respiratory distress Cardiovascular Exam: regular rate/rhythm, normal heart sounds, normal peripheral pulses Gastrointestinal/Abdomen Exam: soft, normal bowel sounds, No tenderness, No mass Extremity Exam: other (left-sided weakness chronic) Neurologic Exam: alert (somnolent arouses easily), piano 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 II-XII nml as tested, No oriented x 3 (oriented to herself) Skin Exam: normal color, warm, dry, No rash Lymphatic Exam: No adenopathy SpO2 Interpretation: normal (94%) SpO2: 94 Oxygen Delivery: Room Air - Course Nursing assessment & vital signs reviewed: Yes EKG Interpreted by Me: RATE (99 bpm), Sinus Rhythm, NORMAL AXIS, Other (EKG, sinus rhythm, 99 bpm, normal axis, Q waves inferior leads,no acute ST or T wave changes noted) - Radiology Exams Chest X-ray Interpretation: Interpreted by me, Other (no acute disease process) - CT Exams Head CT Interpretation: Tele-radiologist Report, Other (head CT: No acute findings) Ordered Tests: Active Orders 24 hr Category Date Time Status Personal Lines Appraiser STAT Care 01/12/17 20:53 Active Núñez [Catheter-[place] Núñez] STAT Care 01/12/17 21:21 Active IV Insertion STAT Care 01/12/17 20:12 Active Pulse Oximetry (ED) STAT Care 01/12/17 20:53 Active Saline Lock STAT Care 01/12/17 20:53 Active CHEST 1 VIEW (PORTABLE) Stat Exams 01/12/17 22:23 Taken HEAD WITHOUT CONTRAST [CT] Stat Exams 01/12/17 21:34 Taken BLOOD CULTURE Stat Lab 01/12/17 21:19 Received CBC W DIFF Stat Lab 01/12/17 21:00 Completed CMP Stat Lab 01/12/17 21:00 Completed CULTURE,URINE Stat Lab 01/12/17 21:19 Received Lactic Acid Stat Lab 01/12/17 21:13 Completed Manual Differential NC Stat Lab 01/12/17 21:00 Completed Occult Blood,Stool Other Stat Lab 01/12/17 21:19 Completed PROTIME WITH INR Stat Lab 01/12/17 21:00 Completed PTT Stat Lab 01/12/17 21:00 Completed UA W/ MICROSCOPIC Stat Lab 01/12/17 21:19 Completed Medication Summary Generic Name Dose Route Start Last Admin Trade Name Freq PRN Reason Stop Dose Admin Ceftriaxone Sodium/Dextrose 1 g in 50 mls @ 100 mls/hr 01/12/17 22:58 Rocephin 1 Gm-D5w 50 Ml Bag IV 01/12/17 23:27 STAT STA Discontinued Medications Generic Name Dose Route Start Last Admin Trade Name Freq PRN Reason Stop Dose Admin Sodium Chloride 1,000 mls @ 999 mls/hr 01/12/17 20:55 01/12/17 20:58 Sodium Chloride 0.9% 1000 Ml IV 01/12/17 21:55 999 mls/hr .Q1H1M STA Administration Sodium Chloride Confirm 01/12/17 20:57 Sodium Chloride 0.9% 1000 Ml Administered 01/12/17 20:58 Dose 1,000 mls @ ud .ROUTE .STK-MED ONE Lab/Rad Data: Laboratory Result Diagrams 01/12/17 21:00 01/12/17 21:00 Laboratory Results 01/12/17 01/12/17 01/12/17 Range/Units 21:19 21:19 21:13 WBC (4.0-10.5) K/mm3 RBC (4.1-5.4) M/mm3 Hgb (12.0-16.0) gm/dl Hct (35-47) % MCV (78-100) fl MCH (26-32) pg MCHC (32-36) g/dl RDW (11.5-14.0) % Plt Count (150-450) K/mm3 MPV (6-9.5) fl Segmented Neutrophils (36.0-66.0) % Band Neutrophils (0.0-2.0) % Lymphocytes (Manual) (24-44) % Monocytes (Manual) (0.0-12.0) % Differential Comment Atypical Lymphocytes % Toxic Granulation Dohle Bodies Platelet Estimate (NORMAL) INR (0.8-3.0) APTT (25.3-37.0) SECONDS Sodium (136-145) mEq/L Potassium (3.5-5.1) mEq/L Chloride (98-107) mEq/L Carbon Dioxide (21-32) mEq/L Anion Gap (5-15) MEQ/L BUN (9-20) mg/dL Creatinine (0.55-1.30) mg/dl Estimated GFR ML/MIN Glucose (70-110) MG/DL Lactic Acid 1.1 (0.4-2.0) Calcium (8.5-10.1) mg/dL Total Bilirubin (0.2-1.0) mg/dL AST (15-37) U/L ALT (12-78) U/L Alkaline Phosphatase (46-116) U/L Serum Total Protein (6.4-8.2) gm/dL Albumin (3.4-5.0) g/dL Ur Collection Type CATH Urine Color DARK YELLOW (YELLOW) Urine Appearance SLIGHTLY CLOUDY (CLEAR) Urine pH 5.0 (5-6) Ur Specific [place] 1.020 (1.005-1.025) Urine Protein 30 (Negative) Urine Ketones SMALL (NEGATIVE) Urine Blood 250 (0-5) Jose Maria/ul Urine Nitrite POSITIVE (NEGATIVE) Urine Bilirubin NEGATIVE (NEGATIVE) Urine Urobilinogen NORMAL (0-1) mg/dL Ur Leukocyte Esterase TRACE (NEGATIVE) Urine Microscopic RBC 2-5 (0-2) /HPF Urine Microscopic WBC 10-15 (0-5) /HPF Ur Epithelial Cells FEW (FEW) /HPF Urine Bacteria PACKED (NEGATIVE) /HPF Urine Mucus MANY (NEGATIVE) /HPF Urine Glucose NEGATIVE (NEGATIVE) mg/dL Stool Occult Blood NEGATIVE (Negative) Specimen Received 01/12/17210901/12/17 01/12/17 01/12/17 Range/Units 21:00 21:00 21:00 WBC 4.7 (4.0-10.5) K/mm3 RBC 4.26 (4.1-5.4) M/mm3 Hgb 12.4 (12.0-16.0) gm/dl Hct 39.0 (35-47) % MCV 91.5 (78-100) fl MCH 29.1 (26-32) pg MCHC 31.8 L (32-36) g/dl RDW 14.8 H (11.5-14.0) % Plt Count 226 (150-450) K/mm3 MPV 11.8 H (6-9.5) fl Segmented Neutrophils 25 L (36.0-66.0) % Band Neutrophils 44 H (0.0-2.0) % Lymphocytes (Manual) 24 (24-44) % Monocytes (Manual) 6 (0.0-12.0) % Differential Comment NORMAL Atypical Lymphocytes 1 % Toxic Granulation 2+ Dohle Bodies 2+ Platelet Estimate NORMAL (NORMAL) INR 1.07 (0.8-3.0) APTT 26.3 (25.3-37.0) SECONDS Sodium 144 (136-145) mEq/L Potassium 3.6 (3.5-5.1) mEq/L Chloride 106 (98-107) mEq/L Carbon Dioxide 28.0 (21-32) mEq/L Anion Gap 13.3 (5-15) MEQ/L BUN 25 H (9-20) mg/dL Creatinine 0.91 (0.55-1.30) mg/dl Estimated GFR > 60 ML/MIN Glucose 116 H (70-110) MG/DL Lactic Acid (0.4-2.0) Calcium 9.2 (8.5-10.1) mg/dL Total Bilirubin 0.30 (0.2-1.0) mg/dL AST 11 L (15-37) U/L ALT 8 L (12-78) U/L Alkaline Phosphatase 40 L (46-116) U/L Serum Total Protein 6.7 (6.4-8.2) gm/dL Albumin 3.0 L (3.4-5.0) g/dL Ur Collection Type Urine Color (YELLOW) Urine Appearance (CLEAR) Urine pH (5-6) Ur Specific [place] (1.005-1.025) Urine Protein (Negative) Urine Ketones (NEGATIVE) Urine Blood (0-5) Jose Maria/ul Urine Nitrite (NEGATIVE) Urine Bilirubin (NEGATIVE) Urine Urobilinogen (0-1) mg/dL Ur Leukocyte Esterase (NEGATIVE) Urine Microscopic RBC (0-2) /HPF Urine Microscopic WBC (0-5) /HPF Ur Epithelial Cells (FEW) /HPF Urine Bacteria (NEGATIVE) /HPF Urine Mucus (NEGATIVE) /HPF Urine Glucose (NEGATIVE) mg/dL Stool Occult Blood (Negative) Specimen Received - Progress Progress: improved Progress Note: 01/12/17 23:00 This is a 81-year-old white female with history of progressive supranuclear palsy, chronic left-sided weakness noted to be increasing [facility] the [facility] past several days had a temperature today On physical examination patient is very slow to respond she has chronic left sided weakness Patient's chest x-ray no acute changes head CT unremarkable urinalysis shows 10- 15 white cells per high-power field white count on CBC 4.7 hemoglobin 12.4 hematocrit 39 chemistry is essentially normal patient did have a lactate of 1.1 patient is given IV normal saline she'll be given Rocephin blood cultures and urine cultures have been obtained Case is discussed with Dr. Fine customer contact representative for Dr. Cuadra will place patient on observation telemetry provide IV hydration and Rocephin - Departure Time of Disposition: 23:02 Departure Disposition: Observation Clinical Impression: History of progressive supranuclear palsy Urinary tract infection Qualifiers: Urinary tract infection type: site unspecified Hematuria presence: without hematuria Qualified Code(s): N39.0 - Urinary tract infection, site not specified Mental status change Qualifiers: Altered mental status type: unspecified Qualified Code(s): R41.82 - Altered mental status, unspecified Condition: Fair Critical Care Time: No Referrals: MARCI KITCHEN [Primary Care Provider] -
[2017-01-12 21:23] LABS: Mean Cell Volume 91.5 fl (78-100); Mean Corpuscular Hemoglobin 29.1 pg (26-32); Mean Platelet Volume 11.8 fl (6-9.5); Platelet Count 226 K/mm3 (150-450); Red Blood Count 4.26 M/mm3 (4.1-5.4); Red Cell Distribution Width 14.8 % (11.5-14.0); White Blood Count 4.7 K/mm3 (4.0-10.5)
[2017-01-12 21:45] LABS: Bilirubin NEGATIVE (NEGATIVE); Blood 250 Ery/ul (0-5); COMPLETE URINE MICROSCOPIC? YES; Collection Type CATH; Glucose NEGATIVE (NEGATIVE); Leukocyte Esterase TRACE (NEGATIVE)
[2017-01-12 21:45] LABS: ALKALINE PHOSPHATASE 40 U/L (46-116); ANION GAP 13.3 MEQ/L (5-15); BLOOD UREA NITROGEN 25 mg/dL (9-20); CHLORIDE 106 mEq/L (98-107); Glucose 116 MG/DL (70-110); INR 1.07 (0.8-3.0); PROTIME 12.1 SECONDS (9.95-12.35); Potassium 3.6 mEq/L (3.5-5.1); SGOT/AST 11 U/L (15-37); SODIUM 144 mEq/L (136-145); Total Protein 6.7 gm/dL (6.4-8.2)
[2017-01-12 21:46] LABS: Bacteria PACKED /HPF (NEGATIVE); Epithelial Cells FEW /HPF (FEW); Mucus MANY /HPF (NEGATIVE)
[2017-01-12 21:48] LABS: PTT 26.3 SECONDS (25.3-37.0)
[2017-01-12 21:56] LABS: ATYPICAL LYMPHS 1 %; BAND 44 % (0.0-2.0); Platelet Estimate NORMAL (NORMAL); SGPT/ALT 8 U/L (12-78); Total Cells Counted 100
[2017-01-12 21:57] LABS: Dohle Bodies 2+; Toxic Granulation 2+
[2017-01-12] MEDS ORDERED: ROCEPHIN 1 Gm-D5w 50 ml Bag** 1 G/50 ML IVPB IV STA (22:58)
[2017-01-12] MEDS ORDERED: ROCEPHIN 1 Gm-D5w 50 ml Bag** 1 G/50 ML IVPB IV ONE (23:05)
[2017-01-12] MEDS ORDERED: DUONEB 0.5-3 MG/3 ml Neb IH PRN (23:48)
[2017-01-13] MEDS: Sodium Chloride 0.9% 1000 ML 1,000 ML IV SCH ×3 (00:59→22:48)
[2017-01-13 06:46] LABS: Mean Cell Volume 92.9 fl (78-100); Mean Corpuscular Hemoglobin 29.1 pg (26-32); Mean Platelet Volume 12.1 fl (6-9.5); Platelet Count 191 K/mm3 (150-450); Red Blood Count 3.64 M/mm3 (4.1-5.4); Red Cell Distribution Width 14.8 % (11.5-14.0); White Blood Count 3.3 K/mm3 (4.0-10.5)
[2017-01-13 07:35] LABS: ALBUMIN 2.4 g/dL (3.4-5.0); ALKALINE PHOSPHATASE 30 U/L (46-116); ANION GAP 12.4 MEQ/L (5-15); BLOOD UREA NITROGEN 21 mg/dL (9-20); CHLORIDE 110 mEq/L (98-107); Carbon Dioxide 26.7 mEq/L (21-32); Glucose 90 MG/DL (70-110); Potassium 3.3 mEq/L (3.5-5.1); SGOT/AST 12 U/L (15-37); SGPT/ALT 7 U/L (12-78); SODIUM 146 mEq/L (136-145); Total Protein 5.6 gm/dL (6.4-8.2)
--- NOTE | 2017-01-13 08:23 | PCM.HP ---
History of Present Illness - Chief Complaint Chief Complaint: UTI History of Present Illness: is a 81 year old female who presented from the [facility] with a concern of altered mental status, she was very slow to respond and obtunded. She was found to have a UTI in the ER yesterday. - Review of Systems Constitutional: Fatigue, Weakness, No Fever, No Chills Respiratory: No Cough, No Short Of Breath Cardiac: No Chest Pain, No Edema, No Syncope Abdominal/Gastrointestinal: No Abdominal Pain, No Nausea, No Vomiting, No Diarrhea Neurological: No Focal Weakness All Other Systems: Reviewed and Negative Medications & Allergies Home Medications: Home Medication List Alprazolam [Xanax] 0.5 mg PO DAILY PRN PRN 12/04/16 [History Confirmed 01/13/17] Aspirin 81 mg PO DAILY 12/04/16 [History Confirmed 01/13/17] Calcium Carbonate [Calcium] 600 mg PO DAILY 12/04/16 [History Confirmed 01/13/17 ] Carbidopa/Levodopa [Carbidopa-Levo 10-100 mg Odt] 1 each PO TID 12/04/16 [ History Confirmed 01/13/17] Hydrocodone Bit/Acetaminophen [[place] 5-325 Tablet] 1 each PO Q4HPRN PRN [History Confirmed 01/13/17] Ipratropium/Albuterol Sulfate [Iprat-Albut 0.5-3(2.5) mg/3 ml] 3 ml IH Q6H PRN PRN 12/04/16 [History Confirmed 01/13/17] Latanoprost 1 drop OP DAILY 12/04/16 [History Confirmed 01/13/17] Omeprazole 20 MG [Prilosec 20 mg] 20 mg PO DAILY 12/04/16 [History Confirmed ] Sucralfate 1 gm [Carafate 1 GM] 1 gm PO QID 12/04/16 [History Confirmed ] Ascorbic Acid 500 mg [Vitamin C 500 MG] 500 mg PO DAILY 12/05/16 [History Confirmed 01/13/17] Cyclosporine [Restasis] 1 drop OP BID 12/05/16 [History Confirmed 01/13/17] Diclofenac Sodium Gel [Voltaren GEL] 1 applic TOP BIDPRN PRN 12/05/16 [ History Confirmed 01/13/17] Escitalopram Oxalate 10 mg [Lexapro 10 MG] 20 mg PO DAILY 12/05/16 [History Confirmed 01/13/17] Vitamin E 400 unit PO DAILY 12/05/16 [History Confirmed 01/13/17] Potassium Chloride 8 meq PO TID #90 capsule.er 12/07/16 [Rx Confirmed 01/13/17] Acetaminophen 325 mg [Tylenol 325 mg] 650 mg PO Q4H PRN PRN 12/23/16 [ History Confirmed 01/13/17] Alprazolam 0.25 mg [xanAX 0.25 MG] 0.5 mg PO BIDPRN PRN 12/23/16 [History Confirmed 01/13/17] Carbidopa/Levodopa [Carbidopa-Levo 25-100 Tab] 1 tab PO DAILY 12/23/16 [History Confirmed 01/13/17] Guaifenesin/Codeine Phosphate [Guaifenesin AC Cough Syrup] 5 ml PO Q8H PRN PRN 12/23/16 [History Confirmed 01/13/17] Melatonin 3 mg PO QHS 12/23/16 [History Confirmed 01/13/17] Polyethylene Glycol 3350 [Miralax] 17 gm PO DAILY PRN PRN 12/23/16 [History Confirmed 01/13/17] Sennosides [Senokot] 8.6 mg PO BID PRN #0 12/25/16 [Rx Confirmed 01/13/17] Diphenhydramine HCl [Benadryl] 25 mg PO Q6H PRN PRN 01/13/17 [History Confirmed 01/13/17] Furosemide [Lasix] 10 mg PO DAILY 01/13/17 [History Confirmed 01/13/17] Allergies/Adverse Reactions: Allergies Allergy/AdvReac Type Severity Reaction Status Date / Time No Known Drug Allergies Allergy Verified 12/23/16 01:29 - Past Medical History Past Medical History: Yes Neurological History: Stroke, Other ENT History: Glaucoma Cardiac History: Hypertension Respiratory History: COPD Endocrine Medical History: No Pertinent History Musculoskelatal History: No Pertinent History, Osteoporosis GI Medical History: GERD History: No Pertinent History Pyscho-Social History: Anxiety Reproductive Disorders: No Pertinent History Comment: glaucoma, progressive supranuclear ophthalmoplegia, dysphagia of oropharyngeal phase, frequent falls, osteoporosis, GERD, anxiety, constipation, hypertension, and insomnia - Female History Are you now?: No - Past Surgical History Past Surgical History: Yes (eye lid sx, 3 c sections) Neuro Surgical History: No Pertinent History Cardiac History: No Pertinent History Respiratory Surgery: No Pertinent History GI Surgical History: No Pertinent History Genitourinary Surgical Hx: No Pertinent History Female Surgical History: Section Other Surgical History: this information was taken directly from patient - Social History Smoking Status: Never smoker Exposure to second hand smoke: No Alcohol: None Drug Use: none - Physical Exam Vital Signs: Vital Signs - 24 hr Temp Pulse Resp BP Pulse Ox 01/13/17 07:30 88 20 94 L 01/13/17 04:00 98.7 F 87 24 129/59 92 L 01/13/17 00:13 94 H 22 94 L 01/12/17 23:48 99.4 F 96 H 16 114/46 94 L 01/12/17 23:04 94 L 01/12/17 23:01 106 H 32 H 145/71 94 L 01/12/17 22:24 100 H 16 124/54 95 01/12/17 21:02 96 H 16 131/62 98 01/12/17 21:01 98 01/12/17 20:40 101.0 F 98 H 20 137/72 94 L General Appearance: no apparent distress, alert Respiratory Exam: normal breath sounds, lungs clear, No respiratory distress Cardiovascular Exam: regular rate/rhythm, normal heart sounds, normal peripheral pulses Gastrointestinal/Abdomen Exam: soft, normal bowel sounds, No tenderness, No mass Extremity Exam: normal inspection, normal range of motion, pelvis stable Skin Exam: normal color, warm, dry, No rash Results - Labs Lab/Micro Results: Lab Results-Last 24 Hours 01/13/17 01/13/17 01/13/17 Range/Units 06:00 06:00 06:00 WBC 3.3 L (4.0-10.5) K/mm3 RBC 3.64 L (4.1-5.4) M/mm3 Hgb 10.6 L (12.0-16.0) gm/dl Hct 33.8 L (35-47) % MCV 92.9 (78-100) fl MCH 29.1 (26-32) pg MCHC 31.4 L (32-36) g/dl RDW 14.8 H (11.5-14.0) % Plt Count 191 (150-450) K/mm3 MPV 12.1 H (6-9.5) fl Sodium 146 H (136-145) mEq/L Potassium 3.3 L (3.5-5.1) mEq/L Chloride 110 H (98-107) mEq/L Carbon Dioxide 26.7 (21-32) mEq/L Anion Gap 12.4 (5-15) MEQ/L BUN 21 H (9-20) mg/dL Creatinine 0.77 (0.55-1.30) mg/dl Estimated GFR > 60 ML/MIN Glucose 90 (70-110) MG/DL Calcium 8.3 L (8.5-10.1) mg/dL Total Bilirubin 0.20 (0.2-1.0) mg/dL AST 12 L (15-37) U/L ALT 7 L (12-78) U/L Alkaline Phosphatase 30 L (46-116) U/L Serum Total Protein 5.6 L (6.4-8.2) gm/dL Albumin 2.4 L (3.4-5.0) g/dL Prealbumin 13.2 L (18.0-35.7) mg/dL - Other Procedures and Tests Respiratory Therapy 01/13/17 02:37 Respiratory Nebulizer PRN Assessment/Plan (1) Mental status change Current Visit: Yes Status: Acute Qualifiers: Altered mental status type: unspecified Qualified Code(s): R41.82 - Altered mental status, unspecified Assessment & Plan: likely related to UTI and potentially from PSP although I am uncertain of this patient's baseline. Code(s): R41.82 - ALTERED MENTAL STATUS, UNSPECIFIED (2) Urinary tract infection Current Visit: Yes Status: Acute Qualifiers: Urinary tract infection type: site unspecified Hematuria presence: without hematuria Qualified Code(s): N39.0 - Urinary tract infection, site not specified Assessment & Plan: on rocephin, urine c and s pending Code(s): N39.0 - URINARY TRACT INFECTION, SITE NOT SPECIFIED (3) History of progressive supranuclear palsy Current Visit: Yes Status: Acute Code(s): Z86.69 - PERSONAL HISTORY OF DIS OF THE NERVOUS SYS AND SENSE ORGANS
[2017-01-13] MEDS ORDERED: TYLENOL 325 MG PO PRN (09:09)
[2017-01-13] MEDS ORDERED: xanAX 0.5 MG PO PRN ×2 (09:09→09:30)
[2017-01-13] MEDS ORDERED: Miralax Powder 17GM PACKET PO PRN (09:09)
[2017-01-13] MEDS ORDERED: NORCO 5/325 MG PO PRN (09:09)
[2017-01-13] MEDS ORDERED: SENOKOT 8.6 MG PO PRN (09:09)
[2017-01-13] MEDS ORDERED: Voltaren GEL TOP PRN (09:09)
[2017-01-13] MEDS ORDERED: MEDICATION INTERVENTION MC PRN (09:24)
[2017-01-13] MEDS: ECOTRIN 81 MG PO SCH (09:40)
[2017-01-13] MEDS: Sinemet 10/100 MG PO SCH ×3 (09:40→22:43)
[2017-01-13] MEDS: Protonix 40MG Tablet PO SCH (09:40)
[2017-01-13] MEDS: Lexapro 10 MG PO SCH (09:40)
[2017-01-13] MEDS: Xalatan OP SCH (09:41)
[2017-01-13] MEDS: Sinemet 25/100 MG PO SCH (09:41)
--- NOTE | 2017-01-13 09:42 | XRAY ---
Indication: Weakness and confusion. Multiple contiguous axial images obtained through the head without contrast. Comparison: December 04, 2016. Stable age appropriate global atrophy, moderate periventricular degenerative microvascular ischemia bilaterally, and left external capsule remote lacunar infarct. Again no acute intracranial hemorrhage, abnormal extra-axial fluid collection, or mass effect. Fourth ventricle is midline. Bony calvarium intact. Visualized paranasal sinuses and mastoid air cells are clear. Impression: Stable nonacute senile brain with left external capsule remote lacunar infarct. Comment: Preliminary interpretation was made by [facility]. No discrepancy. CTDI 70.62
--- NOTE | 2017-01-13 09:47 | XRAY ---
Indication: Weakness, confusion, and fever. Comparison: December 22, 2016. Portable chest unchanged again demonstrating minimal bibasilar atelectasis/scarring and a few scattered calcific granulomas. Heart is not enlarged for AP portable technique. No new/acute findings.
[2017-01-13 09:48] LABS: BAND 27 % (0.0-2.0); Eosinophil 1 % (0.00-3.0); Platelet Estimate NORMAL (NORMAL); Total Cells Counted 100
[2017-01-13] MEDS ORDERED: NON-FORMULARY ITEM (Aspirin [Aspirin] 81 MG) PO SCH (10:00)
[2017-01-13] MEDS ORDERED: NON-FORMULARY ITEM (Omeprazole 20 Mg [Prilosec 20 Mg] 20 MG) PO SCH (10:00)
[2017-01-13] MEDS ORDERED: NON-FORMULARY ITEM (Cyclosporine [Restasis] 1 DROP) OP SCH (10:00)
[2017-01-13] MEDS ORDERED: CARBIDOPA PO SCH (10:00)
[2017-01-13] MEDS ORDERED: LEVODOPA PO SCH (10:00)
[2017-01-13] MEDS: Carafate 1 GM PO SCH ×3 (10:50→22:43)
[2017-01-13] MEDS: FLAGYL 500 MG IVPB 500 MG/100 ML BAG IV SCH ×2 (12:15→17:48)
[2017-01-13] MEDS: ROCEPHIN 1 Gm-D5w 50 ml Bag** 1 G/50 ML IVPB IV SCH (22:43)
[2017-01-14] MEDS: FLAGYL 500 MG IVPB 500 MG/100 ML BAG IV SCH ×2 (00:07→05:22)
[2017-01-14 06:26] LABS: Mean Cell Volume 91.6 fl (78-100); Mean Corpuscular Hemoglobin 28.6 pg (26-32); Mean Platelet Volume 11.5 fl (6-9.5); Platelet Count 204 K/mm3 (150-450); Red Blood Count 3.67 M/mm3 (4.1-5.4); Red Cell Distribution Width 14.4 % (11.5-14.0); White Blood Count 3.4 K/mm3 (4.0-10.5)
[2017-01-14 07:08] LABS: ALBUMIN 2.3 g/dL (3.4-5.0); ALKALINE PHOSPHATASE 30 U/L (46-116); ANION GAP 11.5 MEQ/L (5-15); BLOOD UREA NITROGEN 11 mg/dL (9-20); CHLORIDE 108 mEq/L (98-107); Carbon Dioxide 26.4 mEq/L (21-32); Glucose 89 MG/DL (70-110); SGOT/AST 15 U/L (15-37); SGPT/ALT 9 U/L (12-78); SODIUM 144 mEq/L (136-145); Total Protein 5.4 gm/dL (6.4-8.2)
[2017-01-14 07:18] LABS: Potassium 2.5 mEq/L (3.5-5.1)
--- NOTE | 2017-01-14 07:30 | PCM.NOTE ---
Date and Time: 01/14/17726 Subjective Assessment: seems to be doing better this am had fever with some diarrhea last night that was c. diff positive. she has no complaints this am. Objective Exam General Appearance: no apparent distress, alert Neurologic Exam: alert, oriented x 3, cooperative Skin Exam: normal color, warm, dry Eye Exam: No scleral icterus Ears, Nose, Throat Exam: normal ENT inspection, pharynx normal, moist mucous membranes Neck Exam: normal inspection, non-tender, supple, full range of motion Respiratory Exam: normal breath sounds, lungs clear, No respiratory distress Cardiovascular Exam: regular rate/rhythm, normal heart sounds Gastrointestinal/Abdomen Exam: soft, No tenderness, No mass Extremity Exam: normal inspection, normal range of motion Back Exam: normal inspection, normal range of motion, No CVA tenderness, No vertebral tenderness Pelvic Exam: deferred Rectal Exam: deferred OBJECTIVE DATA Vital Signs: Vital Signs - 24 hr Temp Pulse Resp BP Pulse Ox 01/14/17 04:00 97.9 F 82 17 140/66 94 L 01/14/17 00:00 100.8 F 97 H 18 112/58 92 L 01/13/17 20:01 97 H 16 94 L 01/13/17 20:00 99.6 F 89 16 151/68 94 L 01/13/17 16:00 87 16 140/65 96 01/13/17 12:00 98.2 F 82 20 141/64 96 01/13/17 08:00 98.2 F 81 18 121/69 94 L 01/13/17 07:30 88 20 94 L Pain Assessment - Last Documented Pain Scale Used 0-10 Pain Scale Intake and Output: Intake & Output 01/11/17 01/12/17 01/13/17 01/14/17 11:59 11:59 11:59 11:59 Intake Total 559 560 Output Total 1403 Balance 559 -843 Weight 69.4 kg Lab Results: Lab Results-Last 24 Hours 01/13/17 01/13/17 01/13/17 Range/Units 04:54 06:00 06:00 WBC 3.3 L (4.0-10.5) K/mm3 RBC 3.64 L (4.1-5.4) M/mm3 Hgb 10.6 L (12.0-16.0) gm/dl Hct 33.8 L (35-47) % MCV 92.9 (78-100) fl MCH 29.1 (26-32) pg MCHC 31.4 L (32-36) g/dl RDW 14.8 H (11.5-14.0) % Plt Count 191 (150-450) K/mm3 MPV 12.1 H (6-9.5) fl Segmented Neutrophils 31 L (36.0-66.0) % Band Neutrophils 27 H (0.0-2.0) % Lymphocytes (Manual) 23 L (24-44) % Monocytes (Manual) 18 H (0.0-12.0) % Eosinophils (Manual) 1 (0.00-3.0) % Differential Comment NORMAL Platelet Estimate NORMAL (NORMAL) Sodium 146 H (136-145) mEq/L Potassium 3.3 L (3.5-5.1) mEq/L Chloride 110 H (98-107) mEq/L Carbon Dioxide 26.7 (21-32) mEq/L Anion Gap 12.4 (5-15) MEQ/L BUN 21 H (9-20) mg/dL Creatinine 0.77 (0.55-1.30) mg/dl Estimated GFR > 60 ML/MIN Glucose 90 (70-110) MG/DL Calcium 8.3 L (8.5-10.1) mg/dL Total Bilirubin 0.20 (0.2-1.0) mg/dL AST 12 L (15-37) U/L ALT 7 L (12-78) U/L Alkaline Phosphatase 30 L (46-116) U/L Serum Total Protein 5.6 L (6.4-8.2) gm/dL Albumin 2.4 L (3.4-5.0) g/dL Prealbumin (18.0-35.7) mg/dL Stl C. diff Tox B Gene POSITIVE (NEGATIVE) C.difficile 027-NAP1-B1 PRESUMPTIVE NEGATIVE (NEGATIVE) 01/13/17 01/14/17 01/14/17 Range/Units 06:00 05:35 05:35 WBC 3.4 L (4.0-10.5) K/mm3 RBC 3.67 L (4.1-5.4) M/mm3 Hgb 10.5 L (12.0-16.0) gm/dl Hct 33.6 L (35-47) % MCV 91.6 (78-100) fl MCH 28.6 (26-32) pg MCHC 31.3 L (32-36) g/dl RDW 14.4 H (11.5-14.0) % Plt Count 204 (150-450) K/mm3 MPV 11.5 H (6-9.5) fl Segmented Neutrophils (36.0-66.0) % Band Neutrophils (0.0-2.0) % Lymphocytes (Manual) (24-44) % Monocytes (Manual) (0.0-12.0) % Eosinophils (Manual) (0.00-3.0) % Differential Comment Platelet Estimate (NORMAL) Sodium 144 (136-145) mEq/L Potassium 2.5 L* (3.5-5.1) mEq/L Chloride 108 H (98-107) mEq/L Carbon Dioxide 26.4 (21-32) mEq/L Anion Gap 11.5 (5-15) MEQ/L BUN 11 (9-20) mg/dL Creatinine 0.68 (0.55-1.30) mg/dl Estimated GFR > 60 ML/MIN Glucose 89 (70-110) MG/DL Calcium 7.6 L (8.5-10.1) mg/dL Total Bilirubin 0.20 (0.2-1.0) mg/dL AST 15 (15-37) U/L ALT 9 L (12-78) U/L Alkaline Phosphatase 30 L (46-116) U/L Serum Total Protein 5.4 L (6.4-8.2) gm/dL Albumin 2.3 L (3.4-5.0) g/dL Prealbumin 13.2 L (18.0-35.7) mg/dL Stl C. diff Tox B Gene (NEGATIVE) C.difficile 027-NAP1-B1 (NEGATIVE) Assessment/Plan (1) UTI (urinary tract infection) Current Visit: Yes Status: Acute Assessment & Plan: awaiting urine culture d/c mercado continue Rocephin started diarrhea last night she is positive C. diff as has been in the past on flagyl 500 tid monitor today replace K recheck up in chair as tolerated Code(s): N39.0 - URINARY TRACT INFECTION, SITE NOT SPECIFIED (2) C. 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
[2017-01-14 07:31] LABS: BAND 11 % (0.0-2.0); Eosinophil 2 % (0.00-3.0); Total Cells Counted 100
[2017-01-14 07:32] LABS: Platelet Estimate NORMAL (NORMAL); Toxic Granulation 2+
[2017-01-14] MEDS: ENOXAPARIN SODIUM SQ SCH (08:22)
[2017-01-14] MEDS: POTASSIUM CHLORIDE 20 mEq IN WATER 100ML 100 ML IV SCH ×4 (08:23→18:53)
[2017-01-14] MEDS: Lexapro 10 MG PO SCH (08:24)
[2017-01-14] MEDS: ECOTRIN 81 MG PO SCH (08:24)
[2017-01-14] MEDS: Carafate 1 GM PO SCH ×4 (08:24→20:42)
[2017-01-14] MEDS: Flagyl 500 MG PO SCH ×4 (08:24→20:42)
[2017-01-14] MEDS: Sinemet 25/100 MG PO SCH (08:24)
[2017-01-14] MEDS: Protonix 40MG Tablet PO SCH (08:24)
[2017-01-14] MEDS: Xalatan OP SCH (08:24)
[2017-01-14] MEDS: Sinemet 10/100 MG PO SCH ×4 (08:24→20:42)
[2017-01-14] MEDS ORDERED: Zofran 4 MG/2 ML VIAL IV PRN ×2 (11:35→11:39)
[2017-01-14] MEDS ORDERED: Sodium Chloride 0.9% 500 ML 500 ML IV SCH (16:15)
[2017-01-14] MEDS: ROCEPHIN 1 Gm-D5w 50 ml Bag** 1 G/50 ML IVPB IV SCH (20:41)
[2017-01-14] MEDS: Klor Con 10 MEQ PO SCH (20:45)
[2017-01-15] MEDS: POTASSIUM CHLORIDE 20 mEq IN WATER 100ML 100 ML IV SCH ×2 (01:13→03:43)
[2017-01-15 06:27] LABS: Mean Cell Volume 88.9 fl (78-100); Mean Platelet Volume 11.5 fl (6-9.5); Platelet Count 230 K/mm3 (150-450); Red Blood Count 3.86 M/mm3 (4.1-5.4); White Blood Count 4.6 K/mm3 (4.0-10.5)
[2017-01-15 06:49] LABS: ANION GAP 15.5 MEQ/L (5-15); BLOOD UREA NITROGEN 5 mg/dL (9-20); CHLORIDE 106 mEq/L (98-107); Carbon Dioxide 21.9 mEq/L (21-32); Glucose 88 MG/DL (70-110); Potassium 3.4 mEq/L (3.5-5.1); SODIUM 140 mEq/L (136-145)
[2017-01-15 07:37] LABS: Eosinophil 5 % (0.00-3.0); Platelet Estimate NORMAL (NORMAL); Total Cells Counted 100; Toxic Granulation 1+
[2017-01-15] MEDS: Protonix 40MG Tablet PO SCH (08:17)
[2017-01-15] MEDS: ECOTRIN 81 MG PO SCH (08:17)
[2017-01-15] MEDS: Klor Con 10 MEQ PO SCH ×3 (08:17→16:07)
[2017-01-15] MEDS: Carafate 1 GM PO SCH ×3 (08:17→16:07)
[2017-01-15] MEDS: Flagyl 500 MG PO SCH ×2 (08:17→14:55)
[2017-01-15] MEDS: Magnesium 1 Gm / 100 Ml D5W*** 100 ML IV SCH ×2 (08:17→09:32)
[2017-01-15] MEDS: Lexapro 10 MG PO SCH (08:17)
[2017-01-15] MEDS: Sinemet 10/100 MG PO SCH ×2 (08:18→14:55)
[2017-01-15] MEDS: Sinemet 25/100 MG PO SCH ×2 (08:18→14:55)
[2017-01-15] MEDS ORDERED: xanAX 0.25 MG PO PRN (08:28)
[2017-01-15] MEDS: ENOXAPARIN SODIUM SQ SCH (08:37)
[2017-01-15] MEDS: Xalatan OP SCH (08:37)
[2017-01-15] MEDS ORDERED: Aldactone 25 MG PO SCH (10:00)
--- NOTE | 2017-01-15 13:37 | PCM.DS ---
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 She was sent to ED found to have UTI was treated and sensitive to treatment however developed somem mild diarrhea and new fever and was found to be c. diff positive again. she was started on flagyl and continued treatment for the uti with ceftriaxone and this improved/resolved and remained afebrile. She was back to her baseline mental status and d/c to [facility] for continued care. With the diarrhea her potassium and mag went low and were replaced. She was given mag sulfate 2 g IV prior to her discharge and will recheck levels in 1 week. - Vitals & Intake/Output Vital Signs: Vital Signs Temperature 98.5 F 01/15/17 12:00 Pulse Rate 88 01/15/17 12:00 Respiratory Rate 18 01/15/17 12:00 Blood Pressure 134/75 01/15/17 12:00 O2 Sat by Pulse Oximetry 95 01/15/17 12:00 Intake & Output: Intake & Output 01/13/17 01/14/17 01/15/17 01/16/17 11:59 11:59 11:59 11:59 Intake Total 800 2625 240 Output Total 1403 202 Balance -603 2423 240 Weight 70.08 kg 70.216 kg - Lab Result Diagrams: 01/15/17 05:45 01/15/17 08:16 Lab Results-Last 24 Hrs: Lab Results-Last 24 Hours 01/14/17 01/15/17 01/15/17 Range/Units 15:20 00:12 05:45 WBC 4.6 (4.0-10.5) K/mm3 RBC 3.86 L (4.1-5.4) M/mm3 Hgb 11.2 L (12.0-16.0) gm/dl Hct 34.3 L (35-47) % MCV 88.9 (78-100) fl MCH 29.0 (26-32) pg MCHC 32.7 (32-36) g/dl RDW 14.0 (11.5-14.0) % Plt Count 230 (150-450) K/mm3 MPV 11.5 H (6-9.5) fl Segmented Neutrophils 55 (36.0-66.0) % Lymphocytes (Manual) 31 (24-44) % Monocytes (Manual) 9 (0.0-12.0) % Eosinophils (Manual) 5 H (0.00-3.0) % Differential Comment NORMAL Toxic Granulation 1+ Platelet Estimate NORMAL (NORMAL) Sodium (136-145) mEq/L Potassium 2.8 L* 2.9 L* (3.5-5.1) mEq/L Chloride (98-107) mEq/L Carbon Dioxide (21-32) mEq/L Anion Gap (5-15) MEQ/L BUN (9-20) mg/dL Creatinine (0.55-1.30) mg/dl Estimated GFR ML/MIN Glucose (70-110) MG/DL Calcium (8.5-10.1) mg/dL Magnesium (1.8-2.4) mg/dL 01/15/17 01/15/17 01/15/17 Range/Units 05:45 05:45 08:16 WBC (4.0-10.5) K/mm3 RBC (4.1-5.4) M/mm3 Hgb (12.0-16.0) gm/dl Hct (35-47) % MCV (78-100) fl MCH (26-32) pg MCHC (32-36) g/dl RDW (11.5-14.0) % Plt Count (150-450) K/mm3 MPV (6-9.5) fl Segmented Neutrophils (36.0-66.0) % Lymphocytes (Manual) (24-44) % Monocytes (Manual) (0.0-12.0) % Eosinophils (Manual) (0.00-3.0) % Differential Comment Toxic Granulation Platelet Estimate (NORMAL) Sodium 140 (136-145) mEq/L Potassium 3.4 L 3.1 L (3.5-5.1) mEq/L Chloride 106 (98-107) mEq/L Carbon Dioxide 21.9 (21-32) mEq/L Anion Gap 15.5 H (5-15) MEQ/L BUN 5 L (9-20) mg/dL Creatinine 0.57 (0.55-1.30) mg/dl Estimated GFR > 60 ML/MIN Glucose 88 (70-110) MG/DL Calcium 8.0 L (8.5-10.1) mg/dL Magnesium 1.4 L (1.8-2.4) mg/dL Discharge Exam General Appearance: no apparent distress, alert Neurologic Exam: alert, oriented x 3, cooperative, normal mood/affect Skin Exam: normal color, warm, dry Eye Exam: PERRL, pale conjunctivae, No EOMI, No scleral icterus Ears, Nose, Throat Exam: normal ENT inspection, pharynx normal, moist mucous membranes Neck Exam: normal inspection, non-tender, supple, full range of motion Respiratory Exam: crackles/rales, No respiratory distress Cardiovascular Exam: regular rate/rhythm, normal heart sounds Gastrointestinal/Abdomen Exam: soft, No tenderness, No mass Extremity Exam: normal inspection, normal range of motion Back Exam: normal inspection, normal range of motion, No CVA tenderness, No vertebral tenderness Pelvic Exam: deferred Rectal Exam: deferred Final Diagnosis/Problem List - Final Discharge Diagnosis/Problem (1) UTI (urinary tract infection) Current Visit: Yes Status: Acute (2) C. 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 Condition: Fair Prescriptions: New Cefuroxime Axetil [Cefuroxime] 250 mg PO BID #10 tablet Metronidazole 500 mg [Flagyl 500 MG] 500 mg PO TID #21 tablet Senna 8.6 mg [Senokot 8.6 mg] 8.6 mg PO BID PRN PRN #0 tablet PRN Reason: Constipation Continue Hydrocodone Bit/Acetaminophen [[place] 5-325 Tablet] 1 each PO Q4HPRN PRN PRN Reason: Pain Alprazolam [Xanax] 0.5 mg PO DAILY PRN PRN PRN Reason: Anxiety Sucralfate 1 gm [Carafate 1 GM] 1 gm PO QID Omeprazole 20 MG [Prilosec 20 mg] 20 mg PO DAILY Latanoprost 1 drop OP DAILY Ipratropium/Albuterol Sulfate [Iprat-Albut 0.5-3(2.5) mg/3 ml] 3 ml IH Q6H PRN PRN PRN Reason: Shortness Of Breath Carbidopa/Levodopa [Carbidopa-Levo 10-100 mg Odt] 1 each PO TID Calcium Carbonate [Calcium] 600 mg PO DAILY Aspirin 81 mg PO DAILY Vitamin E 400 unit PO DAILY Ascorbic Acid 500 mg [Vitamin C 500 MG] 500 mg PO DAILY Escitalopram Oxalate 10 mg [Lexapro 10 MG] 20 mg PO DAILY Cyclosporine [Restasis] 1 drop OP BID Diclofenac Sodium Gel [Voltaren GEL] 1 applic TOP BIDPRN PRN PRN Reason: Pain Potassium Chloride 8 meq PO TID #90 capsule.er Acetaminophen 325 mg [Tylenol 325 mg] 650 mg PO Q4H PRN PRN PRN Reason: Pain And/Or Fever Polyethylene Glycol 3350 [Miralax] 17 gm PO DAILY PRN PRN PRN Reason: Constipation Melatonin 3 mg PO QHS Guaifenesin/Codeine Phosphate [Guaifenesin AC Cough Syrup] 5 ml PO Q8H PRN PRN PRN Reason: Cough Carbidopa/Levodopa [Carbidopa-Levo 25-100 Tab] 1 tab PO TID Alprazolam 0.25 mg [xanAX 0.25 MG] 0.25 mg PO BIDPRN PRN PRN Reason: Anxiety Diphenhydramine HCl [Benadryl] 25 mg PO Q6H PRN PRN PRN Reason: Itching Furosemide [Lasix] 10 mg PO DAILY Discontinued Sennosides [Senokot] 8.6 mg PO BID PRN #0 PRN Reason: Constipation Additional Instructions: bmp and magnesium level in 1 week. Forms: Patient Portal Information
[2017-01-15 15:44] VITALS: BP 140/62; PULSE 89; O2SAT 97
== END 2017-01-15 16:15 | DRG 690 ==
LOC: ED 20:06 → MED SURG 23:34 → OBSVTOIN 01-13 11:57
PROVIDERS: ADMIT Family Medicine; ATTEND Family Medicine
DX: N39.0 Urinary tract infection, site not specified (principal); A04.7 Enterocolitis due to Clostridium difficile; G23.1 Progressive supranuclear ophthalmoplegia [Steele-Richardson-Olszewski]; E87.6 Hypokalemia; Z86.73 Personal history of transient ischemic attack (TIA), and cerebral infarction without residual deficits; J44.9 Chronic obstructive pulmonary disease, unspecified; M81.0 Age-related osteoporosis without current pathological fracture; K21.9 Gastro-esophageal reflux disease without esophagitis; F41.9 Anxiety disorder, unspecified; R13.12 Dysphagia, oropharyngeal phase; R29.6 Repeated falls; I10 Essential (primary) hypertension; K59.00 Constipation, unspecified; G47.00 Insomnia, unspecified; R41.82 Altered mental status, unspecified; Z79.899 Other long term (current) drug therapy
CPT/HCPCS: 36000; 36415; 51702; 70450; 71010; 80048; 80053; 81000; 82272; 83605; 83735; 84132; 84134; 85025; 85610; 85730; 87040; 87077; 87086; 87186; 87493; 93041; 93268; 94760; 96360; 96361; 99285; G0378; J0696; J1650; J3475; J3480; A9270-GY

== ENCOUNTER 2017-05-10 03:17 | Inpatient (IN) | payer MEDICARE ==
[2017-05-10] MEDS ORDERED: DUONEB 0.5-3 MG/3 ml Neb IH ONE ×2 (03:41→03:44)
[2017-05-10] MEDS ORDERED: FEVERALL 650 MG PR ONE (03:55)
[2017-05-10] MEDS ORDERED: Levofloxacin 500MG/100ML D5W 500 MG/100 ML BAG IV STA (03:56)
[2017-05-10] MEDS ORDERED: Levofloxacin 500MG/100ML D5W 500 MG/100 ML BAG IV ONE (03:58)
[2017-05-10] MEDS ORDERED: FEVERALL 650 MG ONE (03:58)
[2017-05-10 04:02] LABS: Lactic Acid 2.3 (0.4-2.0); VBG BASE EXCESS 4.3 (-2.0-2.0); VBG HCO3- 27.3 meq/L (22-28); VBG HEMOGLOBIN 14.9; VBG O2 SATURATION 83.8 (95-100); VBG POTASSIUM 3.5 (3.5-5.1)
[2017-05-10 04:07] LABS: BASOPHIL % 0.1 % (0.0-0.4); Granulocytes % 79.8 % (36.0-66.0); Mean Cell Volume 99.4 fl (78-100); Mean Corpuscular Hemoglobin 29.4 pg (26-32); Mean Platelet Volume 13.1 fl (6-9.5); Monocytes % 5.1 % (0.0-12.0); Platelet Count 151 K/mm3 (150-450); Red Blood Count 4.87 M/mm3 (4.1-5.4); Red Cell Distribution Width 18.7 % (11.5-14.0); White Blood Count 14.7 K/mm3 (4.0-10.5)
[2017-05-10] MEDS ORDERED: Sodium Chloride 0.9% 1000 ML 1,000 ML ONE (04:16)
[2017-05-10] MEDS ORDERED: Sodium Chloride 0.9% 1000 ML 1,000 ML IV STA (04:17)
[2017-05-10 04:21] LABS: INR 1.26 (0.8-3.0); PROTIME 14.1 SECONDS (9.95-12.35)
[2017-05-10 04:24] LABS: Collection Type CCMS; Leukocyte Esterase 1+ (NEGATIVE)
[2017-05-10 04:25] LABS: Bacteria MANY /HPF (NEGATIVE); Bilirubin SMALL (NEGATIVE); Blood 250 Ery/ul (0-5); COMPLETE URINE MICROSCOPIC? YES; Glucose NEGATIVE (NEGATIVE); WBC >100 /HPF (0-5)
[2017-05-10] MEDS ORDERED: Sodium Chloride 0.9% 1000 ML 1,000 ML IV SCH (04:30)
[2017-05-10 04:34] LABS: ALBUMIN 2.6 g/dL (3.4-5.0); ANION GAP 16.1 MEQ/L (5-15); BILIRUBIN,TOTAL 0.3 mg/dL (0.2-1.0); Carbon Dioxide 27.2 mEq/L (21-32); Potassium 3.4 mEq/L (3.5-5.1); Total Protein 6.8 gm/dL (6.4-8.2)
--- NOTE | 2017-05-10 04:56 | ERPHSYRPT ---
- History of Present Illness Time Seen by Provider: 05/10/17 03:50 Source: EMS, detention records Exam Limitations: clinical condition Patient Subjective Stated Complaint: per EMS the facility told them she had a fever and decreased level of consciusness Triage Nursing Assessment: unresponsive to verbal. smells of urine.. skin warm to touch.. lungs wet and wet cough. abdomen soft. left arm in splint from facitlity. noted foot drop and swellong to left leg. + pulses x4. Physician History: PATIENT WITH HISTORY OT PROGRESSIVE SUPRANUCLEAR OPHTHALMOPLEGIA, COPD AND HYPERTENSION PRESENTS WITH ALTERED LEVEL OF CONSCIOUSNESS AND FEVER. Timing/Duration: today Fever Severity: moderate Associated Symptoms: shortness of breath International travel in last 2 weeks: No Allergies/Adverse Reactions: No Known Drug Allergies Allergy (Verified 12/23/16 01:29) Home Medications: Alprazolam [Xanax] 0.5 mg PO DAILY PRN PRN 12/04/16 [History] Aspirin 81 mg PO DAILY 12/04/16 [History] Calcium Carbonate [Calcium] 600 mg PO DAILY 12/04/16 [History] Carbidopa/Levodopa [Carbidopa-Levo 10-100 mg Odt] 1 each PO TID 12/04/16 [ History] Hydrocodone Bit/Acetaminophen [[place] 5-325 Tablet] 1 each PO Q4HPRN PRN [History] Ipratropium/Albuterol Sulfate [Iprat-Albut 0.5-3(2.5) mg/3 ml] 3 ml IH Q6H PRN PRN 12/04/16 [History] Latanoprost 1 drop OP DAILY 12/04/16 [History] Omeprazole 20 MG [Prilosec 20 mg] 20 mg PO DAILY 12/04/16 [History] Sucralfate 1 gm [Carafate 1 GM] 1 gm PO QID 12/04/16 [History] Ascorbic Acid 500 mg [Vitamin C 500 MG] 500 mg PO DAILY 12/05/16 [History] Cyclosporine [Restasis] 1 drop OP BID 12/05/16 [History] Diclofenac Sodium Gel [Voltaren GEL] 1 applic TOP BIDPRN PRN 12/05/16 [ History] Escitalopram Oxalate 10 mg [Lexapro 10 MG] 20 mg PO DAILY 12/05/16 [History] Vitamin E 400 unit PO DAILY 12/05/16 [History] Acetaminophen 325 mg [Tylenol 325 mg] 650 mg PO Q4H PRN PRN 12/23/16 [ History] Alprazolam 0.25 mg [xanAX 0.25 MG] 0.25 mg PO BIDPRN PRN 12/23/16 [History ] Carbidopa/Levodopa [Carbidopa-Levo 25-100 Tab] 1 tab PO TID 12/23/16 [History] Codeine Phosphate/Guaifenesin [Guaifenesin AC Cough Syrup] 5 ml PO Q8H PRN PRN 12/23/16 [History] Melatonin 3 mg PO QHS 12/23/16 [History] Polyethylene Glycol 3350 [Miralax] 17 gm PO DAILY PRN PRN 12/23/16 [History] Diphenhydramine HCl [Benadryl] 25 mg PO Q6H PRN PRN 01/13/17 [History] Furosemide [Lasix] 10 mg PO DAILY 01/13/17 [History] Hx Tetanus, Diphtheria Vaccination/Date Given: Yes Hx Influenza Vaccination/Date Given: No Hx Pneumococcal Vaccination/Date Given: No Immunizations Up to Date: Yes - Review of Systems Constitutional: Fever, Chills Eyes: No Symptoms Ears, Nose, & Throat: No Symptoms Respiratory: Dyspnea Cardiac: No Chest Pain, No Edema, No Syncope Abdominal/Gastrointestinal: No Symptoms Neurological: Lethargy - Past Medical History Pertinent Past Medical History: Yes Neurological History: Stroke, Other ENT History: Glaucoma Cardiac History: Hypertension Respiratory History: COPD Endocrine Medical History: No Pertinent History Musculoskeletal History: No Pertinent History, Osteoporosis GI Medical History: GERD History: No Pertinent History Psycho-Social History: Anxiety Female Reproductive Disorders: No Pertinent History Other Medical History: glaucoma, progressive supranuclear ophthalmoplegia, dysphagia of oropharyngeal phase, frequent falls, osteoporosis, GERD, anxiety, constipation,hypertension, and insomnia - Past Surgical History Past Surgical History: Yes Neuro Surgical History: No Pertinent History Cardiac: No Pertinent History Respiratory: No Pertinent History Gastrointestinal: No Pertinent History Genitourinary: No Pertinent History Female Surgical History: Section Other Surgical History: this information was taken directly from patient - Social History Smoking Status: Unknown if ever smoked Exposure to second hand smoke: No Drug Use: none Patient Lives Alone: No - Nursing Vital Signs Nursing Vital Signs: Initial Vital Signs Temperature 101.2 F 05/10/17 03:37 Pulse Rate 121 H 05/10/17 03:37 Respiratory Rate 30 H 05/10/17 03:37 Blood Pressure 139/83 05/10/17 03:37 O2 Sat by Pulse Oximetry 93 L 05/10/17 03:37 Pain Scale Pain Intensity 0 - Physical Exam General Appearance: lethargy, other (NONVERBAL) Eye Exam: PERRL/EOMI ENT Exam: normal ENT inspection, No pharyngeal erythema, No tonsillar exudate Neck Exam: supple, full range of motion, No meningismus Respiratory Exam: normal breath sounds (NO WHEEZES OR RHONCHI) Cardiovascular/Chest Exam: regular rate/rhythm, tachycardia Gastrointestinal/Abdominal Exam: soft, non tender, no distention Extremity Exam: non-tender Neurologic Exam: other (UNABLE TO EVALUATE- NONVERBAL) SpO2 Interpretation: borderline oxygenation SpO2: 93 Oxygen Delivery: Nasal Cannula Ordered Tests: Active Orders 24 hr Category Date Time Status Bedrest ROUTINE Activity 05/10/17 06:02 Ordered Admission/Status Order ROUTINE Care 05/10/17 05:59 Ordered Call Admit Doctor for Orders ON ADMISSION Care 05/10/17 06:01 Ordered Press Hand STAT Care 05/10/17 03:38 Active Code Status Order ROUTINE Care 05/10/17 05:59 Ordered EKG-ER Only STAT Care 05/10/17 03:37 Active Núñez [Catheter-[place] Núñez] STAT Care 05/10/17 03:42 Active IV Care Q6H Care 05/10/17 05:59 Ordered IV Insertion STAT Care 05/10/17 03:37 Active Intake and Output Q12H Care 05/10/17 05:59 Ordered Oxygen-ED Only NASAL CANNULA 2 lpm Care 05/10/17 03:37 Active Telemetry ROUTINE Care 05/10/17 05:59 Ordered Vital Signs Q4H Care 05/10/17 05:59 Ordered Clear Liquid Diet 05/10/17 Breakfast Ordered CHEST 1 VIEW (PORTABLE) Stat Exams 05/10/17 03:38 Ordered BLOOD CULTURE Stat Lab 05/10/17 04:00 Received CBC W DIFF Stat Lab 05/10/17 03:50 Completed CMP Stat Lab 05/10/17 03:50 Completed Lactic Acid Stat Lab 05/10/17 03:50 Results Lactic Acid Stat Lab 05/10/17 06:01 Ordered NT PRO BNP Stat Lab 05/10/17 03:50 Completed PROTIME WITH INR Stat Lab 05/10/17 03:50 Completed TROPONIN Q3H Lab 05/10/17 03:50 Completed TROPONIN Q3H Lab 05/10/17 06:45 Ordered TROPONIN Q3H Lab 05/10/17 09:45 Ordered TROPONIN Q3H Lab 05/10/17 12:45 Ordered TROPONIN Q3H Lab 05/10/17 15:45 Ordered UA W/ MICROSCOPIC Stat Lab 05/10/17 03:45 Completed VENOUS BLOOD GAS Stat Lab 05/10/17 03:50 Results Oxygen NASAL CANNULA 2 lpm RT 05/10/17 05:59 Ordered Respiratory Nebulizer STAT RT 05/10/17 03:41 Completed Transfer Order Routine Transfer 05/10/17 Ordered Medication Summary Generic Name Dose Route Start Last Admin Trade Name Freq PRN Reason Stop Dose Admin Acetaminophen 650 mg 05/10/17 06:05 [place]ever[place] 650 Mg [place] 06/09/17 06:04 Q4HPRN PRN FEVER Albuterol/Ipratropium 3 ml 05/10/17 05:59 Duoneb 0.5-3 Mg/3 Ml Neb IH 06/09/17 05:58 Q4HPRN PRN SHORTNESS OF BREATH/WHEEZING Carbidopa/Levodopa 1 tab 05/10/17 10:00 Sinemet 25/100 Mg PO 06/09/17 09:59 TID ANDER Sodium Chloride 1,000 mls @ 999 mls/hr 05/10/17 05:30 05/10/17 05:16 Sodium Chloride 0.45% 1000 Ml IV 06/09/17 05:29 999 mls/hr .Q1H1M ANDER Administration Levofloxacin/Dextrose 500 mg in 100 mls @ 100 mls/hr 05/10/17 10:00 Levofloxacin 500mg/100ml D5w IV 06/09/17 09:59 Q24H10 ANDER Potassium Chloride/Sodium Chloride 1,000 mls @ 100 mls/hr 05/10/17 06:00 Sodium Chloride 0.45% W/ 20 Meq Kcl IV 06/09/17 05:59 .Q10H ANDER Discontinued Medications Generic Name Dose Route Start Last Admin Trade Name Kerry PRN Reason Stop Dose Admin Acetaminophen 650 mg 05/10/17 03:55 05/10/17 03:59 [place] 650 Mg [place] 05/10/17 03:56 650 mg STAT ONE Administration Acetaminophen Confirm 05/10/17 03:58 [place] 650 Mg Administered 05/10/17 03:59 Dose 650 mg .ROUTE .STK-MED ONE Albuterol/Ipratropium 3 ml 05/10/17 03:41 05/10/17 03:46 Duoneb 0.5-3 Mg/3 Ml Neb IH 05/10/17 03:42 3 ml STAT ONE Administration Albuterol/Ipratropium Confirm 05/10/17 03:44 Duoneb 0.5-3 Mg/3 Ml Neb Administered 05/10/17 03:45 Dose 3 ml IH .STK-MED ONE Levofloxacin/Dextrose 500 mg in 100 mls @ 100 mls/hr 05/10/17 03:56 05/10/17 04:00 Levofloxacin 500mg/100ml D5w IV 05/10/17 04:55 100 mls/hr STAT STA Administration Levofloxacin/Dextrose Confirm 05/10/17 03:58 Levofloxacin 500mg/100ml D5w Administered 05/10/17 03:59 Dose 500 mg in 100 mls @ ud IV .STK-MED ONE Sodium Chloride Confirm 05/10/17 04:16 Sodium Chloride 0.9% 1000 Ml Administered 05/10/17 04:17 Dose 1,000 mls @ ud .ROUTE .STK-MED ONE Sodium Chloride 1,000 mls @ 999 mls/hr 05/10/17 04:30 05/10/17 05:17 Sodium Chloride 0.9% 1000 Ml IV 05/10/17 06:30 Not Given .Q1H1M ANDER Sodium Chloride 1,000 mls @ 999 mls/hr 05/10/17 04:17 05/10/17 04:20 Sodium Chloride 0.9% 1000 Ml IV 05/10/17 05:17 999 mls/hr .Q1H1M STA Administration Lab/Rad Data: Laboratory Result Diagrams 05/10/17 03:50 05/10/17 03:50 Laboratory Results 05/10/17 05/10/17 05/10/17 Range/Units 03:50 03:50 03:50 WBC (4.0-10.5) K/mm3 RBC (4.1-5.4) M/mm3 Hgb (12.0-16.0) gm/dl Hct (35-47) % MCV (78-100) fl MCH (26-32) pg MCHC (32-36) g/dl RDW (11.5-14.0) % Plt Count (150-450) K/mm3 MPV (6-9.5) fl Gran % (36.0-66.0) % Lymphocytes % (24.0-44.0) % Monocytes % (0.0-12.0) % Eosinophils % (0.00-5.0) % Basophils % (0.0-0.4) % Basophils # (0-0.4) INR 1.26 (0.8-3.0) VBG pH 7.50 H (7.32-7.42) VBG pCO2 at Pat Temp 35 L (42-55) mm/Hg VBG pO2 at Pat Temp 42 H (25-40) mm/Hg VBG HCO3 27.3 (22-28) meq/L VBG O2 Sat (Merry) 83.8 L (95-100) VBG Base Excess 4.3 H (-2.0-2.0) VBG Hemoglobin 14.9 VBG Carboxyhemoglobin 3.0 (0.0-6.9) % T HGB POC Potassium 3.5 (3.5-5.1) Sodium (136-145) mEq/L Potassium (3.5-5.1) mEq/L Chloride (98-107) mEq/L Carbon Dioxide (21-32) mEq/L Anion Gap (5-15) MEQ/L BUN (9-20) mg/dL Creatinine (0.55-1.30) mg/dl Estimated GFR ML/MIN Glucose (70-110) MG/DL Lactic Acid 2.3 H (0.4-2.0) Calcium (8.5-10.1) mg/dL Total Bilirubin (0.2-1.0) mg/dL AST (15-37) U/L ALT (12-78) U/L Alkaline Phosphatase (46-116) U/L Troponin I 0.030 (0.000-0.056) ng/ml NT-Pro-B Natriuret Pep (0-450) pg/ml Serum Total Protein (6.4-8.2) gm/dL Albumin (3.4-5.0) g/dL Ur Collection Type Urine Color (YELLOW) Urine Appearance (CLEAR) Urine pH (5-6) Ur Specific [place] (1.005-1.025) Urine Protein (Negative) Urine Ketones (NEGATIVE) Urine Blood (0-5) [place]/ul Urine Nitrite (NEGATIVE) Urine Bilirubin (NEGATIVE) Urine Urobilinogen (0-1) mg/dL Ur Leukocyte Esterase (NEGATIVE) Urine Microscopic RBC (0-2) /HPF Urine Microscopic WBC (0-5) /HPF Amorphous Crystals (NEGATIVE) /HPF Urine Bacteria (NEGATIVE) /HPF Urine Glucose (NEGATIVE) mg/dL Specimen Received 05/10/17 05/10/17 05/10/17 Range/Units 03:50 03:50 03:45 WBC 14.7 H (4.0-10.5) K/mm3 RBC 4.87 (4.1-5.4) M/mm3 Hgb 14.3 (12.0-16.0) gm/dl Hct 48.4 H (35-47) % MCV 99.4 (78-100) fl MCH 29.4 (26-32) pg MCHC 29.5 L (32-36) g/dl RDW 18.7 H (11.5-14.0) % Plt Count 151 (150-450) K/mm3 MPV 13.1 H (6-9.5) fl Gran % 79.8 H (36.0-66.0) % Lymphocytes % 15.0 L (24.0-44.0) % Monocytes % 5.1 (0.0-12.0) % Eosinophils % 0.0 (0.00-5.0) % Basophils % 0.1 (0.0-0.4) % Basophils # 0.01 (0-0.4) INR (0.8-3.0) VBG pH (7.32-7.42) VBG pCO2 at Pat Temp (42-55) mm/Hg VBG pO2 at Pat Temp (25-40) mm/Hg VBG HCO3 (22-28) meq/L VBG O2 Sat (Merry) (95-100) VBG Base Excess (-2.0-2.0) VBG Hemoglobin VBG Carboxyhemoglobin (0.0-6.9) % T HGB POC Potassium (3.5-5.1) Sodium 168 H* (136-145) mEq/L Potassium 3.4 L (3.5-5.1) mEq/L Chloride 128 H (98-107) mEq/L Carbon Dioxide 27.2 (21-32) mEq/L Anion Gap 16.1 H (5-15) MEQ/L BUN 43 H (9-20) mg/dL Creatinine 1.38 H (0.55-1.30) mg/dl Estimated GFR 39 ML/MIN Glucose 153 H (70-110) MG/DL Lactic Acid (0.4-2.0) Calcium 8.9 (8.5-10.1) mg/dL Total Bilirubin 0.30 (0.2-1.0) mg/dL AST 13 L (15-37) U/L ALT 9 L (12-78) U/L Alkaline Phosphatase 32 L (46-116) U/L Troponin I (0.000-0.056) ng/ml NT-Pro-B Natriuret Pep 250 (0-450) pg/ml Serum Total Protein 6.8 (6.4-8.2) gm/dL Albumin 2.6 L (3.4-5.0) g/dL Ur Collection Type CCMS Urine Color BROWN (YELLOW) Urine Appearance CLOUDY (CLEAR) Urine pH 8.0 (5-6) Ur Specific [place] 1.005 (1.005-1.025) Urine Protein 100 (Negative) Urine Ketones NEGATIVE (NEGATIVE) Urine Blood 250 (0-5) Jose Maria/ul Urine Nitrite POSITIVE (NEGATIVE) Urine Bilirubin SMALL (NEGATIVE) Urine Urobilinogen NORMAL (0-1) mg/dL Ur Leukocyte Esterase 1+ (NEGATIVE) Urine Microscopic RBC 2-5 (0-2) /HPF Urine Microscopic WBC >100 (0-5) /HPF Amorphous Crystals MANY (NEGATIVE) /HPF Urine Bacteria MANY (NEGATIVE) /HPF Urine Glucose NEGATIVE (NEGATIVE) mg/dL Specimen Received 05-10-17 0420 - Progress Progress Note: 05/10/17 04:33 PLACED ON SEPSIS PROTOCOL AT 0415, LACTIC ACID 2.3, AFTER 2 SETS OF BLOOD CULTURES ADMININSTERED LEVAQUIN 500MG IVPB, IN NORMAL SALINE 63KG/30ML BOLUS 2 LITERS OVER 2 HOURS. 05/10/17 04:59 NA-168, NORMAL SALINE DISCONTINUE, PLACED ON IV 0.45 NORMAL SALINE BOLUS [address] Thao (DISCUSSED WITH DR KITCHEN AT 0550 FOR ADMISSION) - Departure Time of Disposition: 06:10 Departure Disposition: In-patient Admission Clinical Impression: URINARY TRACT INFECTION, SEPTICEMIA Condition: Stable Critical Care Time: No Referrals: MARCI KITCHEN [Primary Care Provider] -
[2017-05-10] MEDS ORDERED: DUONEB 0.5-3 MG/3 ml Neb IH PRN (05:59)
[2017-05-10] MEDS ORDERED: SODIUM CHLORIDE 0.45% W/ 20 mEq KCL 1,000 ML IV SCH (06:00)
[2017-05-10 06:18] LABS: Lactic Acid 2.8 (0.4-2.0)
[2017-05-10] MEDS ORDERED: Lactated Ringers 1,000 ML IV ONE ×2 (07:42→18:26)
--- NOTE | 2017-05-10 07:44 | PCM.HP ---
History of Present Illness - Chief Complaint Chief Complaint: Shortness of Breath Date: 05/10/17 History of Present Illness: is a 82 year old female. who presents from [facility] with new onset fever and worsened altered mental status. She hsa had progressive functional decline over the last 8 to 10 years from progressive supranuclear opthalmoplegia and more dramatic in the last 3 months with swallowing difficulty and now in the last 2 weeks has not been eating or drinking well and less responsive. With the acute fever and the hypoxia early this am she was sent to the ED. Found to be septic and severely dehydrated by the ED. She has had at total of 4L of fluids boluses and is having urine output now. She is opening her eyes now and mumbling some but not answering any questions. - Review of Systems Constitutional: Fever, Other (unable to obtain secondary to mental status) Medications & Allergies Home Medications: Home Medication List Alprazolam [Xanax] 0.5 mg PO HS 12/04/16 [History Confirmed 05/10/17] Carbidopa/Levodopa [Carbidopa-Levo 10-100 mg Odt] 1 each PO TID 12/04/16 [ History Confirmed 05/10/17] Ipratropium/Albuterol Sulfate [Iprat-Albut 0.5-3(2.5) mg/3 ml] 3 ml IH Q6H PRN PRN 12/04/16 [History Confirmed 05/10/17] Latanoprost 1 drop OP DAILY 12/04/16 [History Confirmed 05/10/17] Cyclosporine [Restasis] 1 drop OP BID 12/05/16 [History Confirmed 05/10/17] Potassium Chloride 8 meq PO TID #90 capsule.er 12/07/16 [Rx Confirmed 05/10/17] Alprazolam 0.25 mg [xanAX 0.25 MG] 0.25 mg PO BIDPRN PRN 12/23/16 [ History Confirmed 05/10/17] Carbidopa/Levodopa [Carbidopa-Levo 25-100 Tab] 1 tab PO TID 12/23/16 [History Confirmed 05/10/17] Diphenhydramine HCl [Benadryl] 25 mg PO Q6H PRN PRN 01/13/17 [History Confirmed 05/10/17] Furosemide [Lasix] 10 mg PO DAILY 01/13/17 [History Confirmed 05/10/17] Metronidazole 500 mg [Flagyl 500 MG] 500 mg PO TID #21 tablet 01/15/17 [ Rx Confirmed 05/10/17] Ranitidine HCl [Zantac] 300 mg PO DAILY 05/10/17 [History Confirmed 05/10/17] Saccharomyces Boulardii [Florastor] 250 mg PO BID 05/10/17 [History Confirmed ] Allergies/Adverse Reactions: Allergies Allergy/AdvReac Type Severity Reaction Status Date / Time No Known Drug Allergies Allergy Verified 12/23/16 01:29 - Past Medical History Past Medical History: Yes Neurological History: Stroke, Other ENT History: Glaucoma Cardiac History: Hypertension Respiratory History: COPD Endocrine Medical History: No Pertinent History Musculoskelatal History: No Pertinent History, Osteoporosis GI Medical History: GERD History: No Pertinent History Pyscho-Social History: Anxiety Reproductive Disorders: No Pertinent History Comment: glaucoma, progressive supranuclear ophthalmoplegia, dysphagia of oropharyngeal phase, frequent falls, osteoporosis, GERD, anxiety, constipation, hypertension, and insomnia - Past Surgical History Past Surgical History: Yes Neuro Surgical History: No Pertinent History Cardiac History: No Pertinent History Respiratory Surgery: No Pertinent History GI Surgical History: No Pertinent History Genitourinary Surgical Hx: No Pertinent History Female Surgical History: Section Other Surgical History: this information was taken directly from patient - Social History Smoking Status: Unknown if ever smoked Exposure to second hand smoke: No Alcohol: None Drug Use: none - Physical Exam Vital Signs: Vital Signs - 24 hr Temp Pulse Resp BP Pulse Ox 05/10/17 06:08 93 L 05/10/17 05:48 107 H 30 H 110/74 95 05/10/17 05:35 99.5 F 05/10/17 05:21 123 H 32 H 121/56 94 L 05/10/17 04:43 123 H 40 H 131/78 94 L 05/10/17 04:23 128 H 40 H 117/51 93 L 05/10/17 04:08 120 H 38 H 127/77 91 L 05/10/17 03:41 125 H 42 H 93 L 05/10/17 03:37 101.2 F 121 H 30 H 139/83 93 L Oxygen-Last 24 hours O2 Percentage 2 Liters = 28% O2 Percentage 2 Liters = 28% O2 Percentage 2 Liters = 28% O2 Percentage 2 Liters = 28% O2 Percentage 2 Liters = 28% O2 Percentage 2 Liters = 28% O2 Percentage 2 Liters = 28% General Appearance: moderate distress Neurologic Exam: No alert, No oriented x 3 Eye Exam: pale conjunctivae Ears, Nose, Throat Exam: dry mucous membranes Neck Exam: non-tender, supple Respiratory Exam: lungs clear, other (tachypnea thick oral secretions with rattling in the oropharynx) Cardiovascular Exam: tachycardia Gastrointestinal/Abdomen Exam: soft, normal bowel sounds, No tenderness, No distention, No mass, No guarding Extremity Exam: normal inspection, No pedal edema Skin Exam: warm, dry Results - Labs Lab/Micro Results: Lab Results-Last 24 Hours 05/10/17 Range/Units 06:40 Troponin I 0.034 (0.000-0.056) ng/ml Assessment/Plan (1) Sepsis Current Visit: No Status: Acute Assessment & Plan: she has severe hypernatremia secondary to her functional decline and not eating or drinking well for at least 2 weeks and has developed sepsis due to a presumed uti. 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 Her trunk muscles have also lost control over the last several months with her progressive decline. Her son is her POA and has arrived from [place], he understands the untreatable nature and progressive decline of the PSP in detail. She has started to have some turnaround in her mental status with the fluids. We had long discussion about her prognosis and have decided to continue with the rehydration and treatment of the UTI and sepsis and the dehydration and hypernatremia in hopes to give the remainder of the family time to come and visit and maybe have some improved cognition so she can visit with them. He understands this will not likely be a termite treater helper solution. If she improves from this but her swallowing continues to not improve she does NOT want a feeding tube. The goal would be to improve her well enough that we could discharge back to [facility] possibly to start on hospice care, or to plan to have comfort measures in place at [facility] when she has a subsequent decline to prevent a future trip to the hospital. she was given dose of levaquin in ED. with high rates of resistance will change to Rocephin she was given dose of iv thiamine with her poor nutrition status priot to the D5W she has received 4 L of fluid bolus and started on D5W at 100 mL/h monitor sodium will try to avoid rapid correction continue Tylenol prn replace K given her recurrent severe boughts of c. diff we will continue her on flagyl as well she has been on preventative flagyl due to the severity and frequency of c. diff prior to arrival. 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
[2017-05-10] MEDS ORDERED: THIAMINE 200 MG/2 ML IV ONE (07:45)
--- NOTE | 2017-05-10 09:06 | XRAY ---
Indication: Difficulty breathing. Comparison: January 12, 2017. Portable chest again demonstrates scattered calcified granulomas and minimal bibasilar infiltrate/atelectasis. Heart is not enlarged. Vascularity normal. Bony thorax intact again with mild osteopenia and degenerative changes.
[2017-05-10] MEDS: Dextrose 5%/Water IV Soln. 1000 ML 1,000 ML IV SCH ×2 (09:40→20:18)
[2017-05-10] MEDS: ROCEPHIN 1 Gm-D5w 50 ml Bag** 1 G/50 ML IVPB IV SCH (09:42)
[2017-05-10] MEDS: ENOXAPARIN SODIUM SQ SCH (09:42)
[2017-05-10] MEDS: Sinemet 25/100 MG PO SCH ×3 (09:49→21:04)
[2017-05-10 12:51] LABS: ANION GAP 11.3 MEQ/L (5-15); Carbon Dioxide 25.7 mEq/L (21-32); Potassium 3.1 mEq/L (3.5-5.1)
[2017-05-10] MEDS ORDERED: xanAX 0.25 MG PO PRN (17:10)
[2017-05-10] MEDS ORDERED: MEDICATION INTERVENTION MC PRN (17:20)
[2017-05-10] MEDS: Pepcid 20 MG PO SCH (17:49)
[2017-05-10] MEDS: Sinemet 10/100 MG PO SCH ×2 (17:49→21:04)
[2017-05-10] MEDS: Flagyl 500 MG PO SCH ×2 (17:49→21:04)
[2017-05-10] MEDS: FEVERALL 650 MG PR PRN (18:04)
[2017-05-10] MEDS: Acidophilus TABLET PO SCH (21:04)
[2017-05-10] MEDS: xanAX 0.5 MG PO SCH ×2 (21:04→22:00)
[2017-05-10] MEDS ORDERED: LEVODOPA PO SCH (22:00)
[2017-05-10] MEDS ORDERED: NON-FORMULARY ITEM (Saccharomyces Boulardii [Florastor] 250 MG) PO SCH (22:00)
[2017-05-10] MEDS ORDERED: NON-FORMULARY ITEM (Cyclosporine [Restasis] 1 DROP) OP SCH (22:00)
[2017-05-10] MEDS ORDERED: CARBIDOPA PO SCH (22:00)
[2017-05-10] MEDS: POTASSIUM CHLORIDE 20 mEq IN WATER 100ML 20 MEQ/100 ML BAG IV SCH (23:22)
[2017-05-11] MEDS: Acidophilus TABLET PO SCH ×3 (00:40→21:53)
[2017-05-11] MEDS: Flagyl 500 MG PO SCH (00:41)
[2017-05-11] MEDS: POTASSIUM CHLORIDE 20 mEq IN WATER 100ML 20 MEQ/100 ML BAG IV SCH (02:01)
[2017-05-11] MEDS: Sinemet 10/100 MG PO SCH ×4 (02:27→21:53)
[2017-05-11] MEDS: xanAX 0.5 MG PO SCH ×3 (02:28→22:00)
[2017-05-11] MEDS: Sinemet 25/100 MG PO SCH ×4 (02:28→21:53)
[2017-05-11] MEDS: Dextrose 5%/Water IV Soln. 1000 ML 1,000 ML IV SCH ×2 (06:08→18:43)
[2017-05-11 06:21] LABS: Mean Cell Volume 99.7 fl (78-100); Mean Corpuscular Hemoglobin 29.5 pg (26-32); Mean Platelet Volume 12.9 fl (6-9.5); Platelet Count 101 K/mm3 (150-450); Red Blood Count 3.59 M/mm3 (4.1-5.4); Red Cell Distribution Width 17.5 % (11.5-14.0); White Blood Count 10.8 K/mm3 (4.0-10.5)
[2017-05-11 06:41] LABS: Platelet Estimate NORMAL (NORMAL); Poikilocytosis 1+; Schistocytes 1+; Total Cells Counted 100
[2017-05-11 06:55] LABS: ALBUMIN 1.9 g/dL (3.4-5.0); ALKALINE PHOSPHATASE 21 U/L (46-116); ANION GAP 8.3 MEQ/L (5-15); BLOOD UREA NITROGEN 24 mg/dL (9-20); CHLORIDE 120 mEq/L (98-107); Carbon Dioxide 27.6 mEq/L (21-32); Glucose 101 MG/DL (70-110); MAGNESIUM 1.7 mg/dL (1.8-2.4); Potassium 3.3 mEq/L (3.5-5.1); SGOT/AST 12 U/L (15-37); SGPT/ALT 9 U/L (12-78); Total Protein 5.2 gm/dL (6.4-8.2)
[2017-05-11 07:09] LABS: SODIUM 153 mEq/L (136-145)
[2017-05-11] MEDS: ENOXAPARIN SODIUM SQ SCH (09:40)
[2017-05-11] MEDS: ROCEPHIN 1 Gm-D5w 50 ml Bag** 1 G/50 ML IVPB IV SCH (09:41)
[2017-05-11] MEDS: Pepcid 20 MG PO SCH (09:48)
[2017-05-11] MEDS: Xalatan OP SCH (09:48)
[2017-05-11] MEDS ORDERED: NON-FORMULARY ITEM (Ranitidine Hcl [Zantac] 300 MG) PO SCH (10:00)
[2017-05-11] MEDS ORDERED: Levofloxacin 500MG/100ML D5W 500 MG/100 ML BAG IV SCH (10:00)
[2017-05-11] MEDS: Zithromax 500 MG/ 250 ML NaCl Premix 500 MG/250 ML IVPB IV SCH (12:10)
[2017-05-11] MEDS: FLAGYL 500 MG IVPB 500 MG/100 ML BAG IV SCH ×3 (12:29→23:25)
[2017-05-11] MEDS: FEVERALL 650 MG PR PRN (18:33)
[2017-05-12] MEDS: FLAGYL 500 MG IVPB 500 MG/100 ML BAG IV SCH ×4 (05:43→23:09)
[2017-05-12] MEDS: Dextrose 5%/Water IV Soln. 1000 ML 1,000 ML IV SCH (05:43)
[2017-05-12 06:02] LABS: Mean Cell Volume 97.4 fl (78-100); Mean Platelet Volume 13.1 fl (6-9.5); Platelet Count 93 K/mm3 (150-450); Red Blood Count 3.46 M/mm3 (4.1-5.4); White Blood Count 9.4 K/mm3 (4.0-10.5)
[2017-05-12 06:19] LABS: Mean Corpuscular Hemoglobin 29.7 pg (26-32)
[2017-05-12 06:24] LABS: ALBUMIN 1.9 g/dL (3.4-5.0); ALKALINE PHOSPHATASE 25 U/L (46-116); ANION GAP 9.7 MEQ/L (5-15); BLOOD UREA NITROGEN 13 mg/dL (9-20); CHLORIDE 113 mEq/L (98-107); Carbon Dioxide 27.1 mEq/L (21-32); Glucose 101 MG/DL (70-110); Potassium 3.1 mEq/L (3.5-5.1); SGOT/AST 20 U/L (15-37); SODIUM 147 mEq/L (136-145); Total Protein 5.6 gm/dL (6.4-8.2)
[2017-05-12 06:51] LABS: SGPT/ALT < 6 U/L (12-78)
[2017-05-12 07:02] LABS: BAND 3 % (0.0-2.0); Total Cells Counted 100
[2017-05-12 07:03] LABS: Platelet Estimate NORMAL (NORMAL); Toxic Granulation 1+
[2017-05-12] MEDS: D5W/0.45NS W/ 20mEq KCl 1000 ML 1,000 ML IV SCH ×2 (10:36→22:52)
[2017-05-12] MEDS: ROCEPHIN 1 Gm-D5w 50 ml Bag** 1 G/50 ML IVPB IV SCH (10:39)
[2017-05-12] MEDS: ENOXAPARIN SODIUM SQ SCH (10:44)
[2017-05-12] MEDS: Xalatan OP SCH (10:45)
[2017-05-12] MEDS: Acidophilus TABLET PO SCH ×3 (10:50→23:00)
[2017-05-12] MEDS: Pepcid 20 MG PO SCH (10:50)
[2017-05-12] MEDS: Sinemet 10/100 MG PO SCH ×4 (10:51→23:00)
[2017-05-12] MEDS: Sinemet 25/100 MG PO SCH ×4 (10:51→23:00)
[2017-05-12] MEDS: Zithromax 500 MG/ 250 ML NaCl Premix 500 MG/250 ML IVPB IV SCH (10:51)
[2017-05-12] MEDS: FEVERALL 650 MG PR PRN (12:10)
[2017-05-12] MEDS ORDERED: PROVENTIL 2.5 MG/3 ML NEB IH PRN (20:30)
--- NOTE | 2017-05-12 21:38 | XRAY ---
Indication: Difficulty breathing. Comparison: May 10, 2017. Portable chest demonstrates new bibasilar infiltrates versus atelectasis. Remaining lungs clear. Heart is not enlarged.
[2017-05-12] MEDS: xanAX 0.5 MG PO SCH ×2 (22:51→23:01)
[2017-05-13] MEDS: FEVERALL 650 MG PR PRN (03:16)
[2017-05-13 05:27] LABS: Mean Cell Volume 95.8 fl (78-100); Mean Corpuscular Hemoglobin 29.4 pg (26-32); Mean Platelet Volume 12.7 fl (6-9.5); Platelet Count 120 K/mm3 (150-450); Red Blood Count 3.33 M/mm3 (4.1-5.4); Red Cell Distribution Width 16.5 % (11.5-14.0); White Blood Count 7.1 K/mm3 (4.0-10.5)
[2017-05-13] MEDS: FLAGYL 500 MG IVPB 500 MG/100 ML BAG IV SCH ×4 (05:36→23:41)
[2017-05-13 05:51] LABS: ANION GAP 13.5 MEQ/L (5-15); BLOOD UREA NITROGEN 8 mg/dL (9-20); CHLORIDE 117 mEq/L (98-107); Carbon Dioxide 23.1 mEq/L (21-32); Glucose 117 MG/DL (70-110)
[2017-05-13 05:54] LABS: SODIUM 150 mEq/L (136-145)
[2017-05-13 05:55] LABS: Potassium 2.9 mEq/L (3.5-5.1)
[2017-05-13] MEDS: POTASSIUM CHLORIDE 20 mEq IN WATER 100ML 20 MEQ/100 ML BAG IV SCH ×2 (06:45→08:37)
--- NOTE | 2017-05-13 08:28 | PCM.NOTE ---
Date and Time: 05/13/17827 Subjective Assessment: she is a little more awake this am she is openning her eyes mumbling some and taking small bites of food with the nurses assistance. Her son is at bedside and has been here all weekend. Her family has been in to see her. she continues to have fevers. she did a little better when she was up in the chair. Objective Exam General Appearance: no apparent distress Neurologic Exam: No alert (drowsy falls asleep between bites of food) Skin Exam: warm, dry Eye Exam: pale conjunctivae Ears, Nose, Throat Exam: moist mucous membranes Neck Exam: non-tender, supple Respiratory Exam: normal breath sounds, lungs clear, other (upper airway intermittent noise clears with position changes) Cardiovascular Exam: regular rate/rhythm, normal heart sounds Gastrointestinal/Abdomen Exam: soft, normal bowel sounds, No tenderness Extremity Exam: normal inspection, pedal edema (trace to 1+ clay LE) OBJECTIVE DATA Vital Signs: Vital Signs - 24 hr Temp Pulse Resp BP Pulse Ox 05/13/17 07:07 83 32 H 94 L 05/13/17 07:00 98.1 F 83 32 H 112/58 94 L 05/13/17 03:00 100.6 F 99 H 31 H 117/59 95 05/12/17 23:55 100.0 F 90 40 H 129/63 90 L 05/12/17 20:38 88 40 H 97 05/12/17 19:00 98.4 F 87 22 137/65 98 05/12/17 15:46 98.0 F 88 40 H 109/53 93 L 05/12/17 15:00 39 H 05/12/17 12:48 99.9 F 05/12/17 12:16 101 F 05/12/17 10:41 44 H Oxygen-Last 24 hours O2 Percentage 4 Liters = 36% O2 Percentage 4 Liters = 36% O2 Percentage 4 Liters = 36% O2 Percentage 4 Liters = 36% O2 Percentage 5 Liters = 40% O2 Percentage 5 Liters = 40% Oxygen Flowrate (L/min)-RT 5 Oxygen Flowrate (L/min)-RT 5 Pain Assessment - Last Documented Pain Intensity 0 Pain Scale Used FLACC Intake and Output: Intake & Output 05/10/17 05/11/17 05/12/17 05/13/17 11:59 11:59 11:59 11:59 Intake Total 0 3452 3168 2506 Output Total 775 1400 3000 Balance 0 2677 1768 -494 Weight 63.775 kg Lab Results: Lab Results-Last 24 Hours 05/12/17 05/13/17 05/13/17 Range/Units 09:25 05:05 05:05 WBC 7.1 (4.0-10.5) K/mm3 RBC 3.33 L (4.1-5.4) M/mm3 Hgb 9.8 L (12.0-16.0) gm/dl Hct 31.9 L (35-47) % MCV 95.8 (78-100) fl MCH 29.4 (26-32) pg MCHC 30.7 L (32-36) g/dl RDW 16.5 H (11.5-14.0) % Plt Count 120 L (150-450) K/mm3 MPV 12.7 H (6-9.5) fl Sodium 150 H* (136-145) mEq/L Potassium 2.9 L* (3.5-5.1) mEq/L Chloride 117 H (98-107) mEq/L Carbon Dioxide 23.1 (21-32) mEq/L Anion Gap 13.5 (5-15) MEQ/L BUN 8 L (9-20) mg/dL Creatinine 0.51 L (0.55-1.30) mg/dl Estimated GFR > 60 ML/MIN Glucose 117 H (70-110) MG/DL Calcium 7.4 L (8.5-10.1) mg/dL Influenza Type A Ag NEGATIVE (NEGATIVE) Influenza Type B Ag NEGATIVE (NEGATIVE) RSV (PCR) NEGATIVE (Negative) Radiology Exams: Radiology Procedures Category Date Time Status CHEST 1 VIEW (PORTABLE) Routine Exams 05/12/17 09:08 Completed Multi-Disciplinary Progress Notes: Multi-Disciplinary Progress Notes 05/12/17 14:08 Respiratory Note by Jacqueline Stark NT SX X2 FOR MOD AMT THICK YELLOW NO COMPLICATIONS Initialized on 05/12/17 14:08 - END OF NOTE Assessment/Plan (1) Sepsis Current Visit: No Status: Acute Assessment & Plan: due to UTI sensitive to rocephin she is also on iv flagyl as unable to take pills and covers for the aspiration pneumonia as well as her chronic recurrent c. diff. persistent fevers may partially be due as well to her atelectasis with her normal wbc with the hypernatremia worse will switch back to the D5W, replace the K, repeat am labs discussed again with the son about future plans with her PSP we will plan on if improving tomorrow discharge back to [facility] with hospice. 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
[2017-05-13] MEDS: Dextrose 5%/Water IV Soln. 1000 ML 1,000 ML IV SCH ×2 (08:39→23:45)
[2017-05-13] MEDS: ROCEPHIN 1 Gm-D5w 50 ml Bag** 1 G/50 ML IVPB IV SCH (10:36)
[2017-05-13] MEDS: Xalatan OP SCH (10:39)
[2017-05-13] MEDS: ENOXAPARIN SODIUM SQ SCH (10:40)
[2017-05-13] MEDS: Pepcid 20 MG PO SCH (10:40)
[2017-05-13] MEDS: Acidophilus TABLET PO SCH ×2 (10:41→22:14)
[2017-05-13] MEDS: Sinemet 25/100 MG PO SCH ×3 (10:41→22:14)
[2017-05-13] MEDS: Sinemet 10/100 MG PO SCH ×3 (10:41→22:14)
[2017-05-13] MEDS: Zithromax 500 MG/ 250 ML NaCl Premix 500 MG/250 ML IVPB IV SCH (10:42)
[2017-05-13] MEDS: xanAX 0.5 MG PO SCH (22:14)
[2017-05-14 05:59] LABS: ANION GAP 9.5 MEQ/L (5-15); BLOOD UREA NITROGEN 5 mg/dL (9-20); CHLORIDE 115 mEq/L (98-107); Carbon Dioxide 25.3 mEq/L (21-32); Glucose 115 MG/DL (70-110); Mean Cell Volume 95.4 fl (78-100); Mean Corpuscular Hemoglobin 29.7 pg (26-32); Mean Platelet Volume 12.3 fl (6-9.5); Platelet Count 131 K/mm3 (150-450); Red Blood Count 3.06 M/mm3 (4.1-5.4); Red Cell Distribution Width 15.9 % (11.5-14.0); SODIUM 146 mEq/L (136-145)
[2017-05-14 06:08] LABS: Potassium 2.7 mEq/L (3.5-5.1)
[2017-05-14] MEDS: FLAGYL 500 MG IVPB 500 MG/100 ML BAG IV SCH (06:58)
[2017-05-14] MEDS: POTASSIUM CHLORIDE 20 mEq IN WATER 100ML 20 MEQ/100 ML BAG IV SCH ×2 (07:51→09:20)
--- NOTE | 2017-05-14 08:27 | PCM.DCORD ---
- Discharge Discharge Date: 05/14/17 Disposition: DC TO ANY "OTHER" USP Condition: Poor Prescriptions: New Cephalexin 250 mg/5 ml Susp [Keflex 250 mg/5 ml Susp] 500 mg PO BID 5 Days #100 ml Potassium Chl 40 Meq Oral Dot* [Potassium Chl 40 Meq/30 ml Oral Solution] 40 meq PO DAILY #30 udcup Lorazepam 20 mg/10 ml Mdv [Ativan 20 MG/10 ML MDV] 0.5 ml PO Q1H PRN # 30 ml PRN Reason: Anxiety Continue Alprazolam [Xanax] 0.5 mg PO HS Latanoprost 1 drop OP DAILY Ipratropium/Albuterol Sulfate [Iprat-Albut 0.5-3(2.5) mg/3 ml] 3 ml IH Q6H PRN PRN PRN Reason: Shortness Of Breath Carbidopa/Levodopa [Carbidopa-Levo 10-100 mg Odt] 1 each PO TID Cyclosporine [Restasis] 1 drop OP BID Carbidopa/Levodopa [Carbidopa-Levo 25-100 Tab] 1 tab PO TID Alprazolam 0.25 mg [xanAX 0.25 MG] 0.25 mg PO BIDPRN PRN PRN Reason: Anxiety Metronidazole 500 mg [Flagyl 500 MG] 500 mg PO TID #21 tablet Ranitidine HCl [Zantac] 300 mg PO DAILY Saccharomyces Boulardii [Florastor] 250 mg PO BID Discontinued Potassium Chloride 8 meq PO TID #90 capsule.er Diphenhydramine HCl [Benadryl] 25 mg PO Q6H PRN PRN PRN Reason: Itching Furosemide [Lasix] 10 mg PO DAILY Follow up with: MARCI KITCHEN [Primary Care Provider] -
[2017-05-14] MEDS: ROCEPHIN 1 Gm-D5w 50 ml Bag** 1 G/50 ML IVPB IV SCH (09:20)
[2017-05-14] MEDS: Acidophilus TABLET PO SCH (09:56)
[2017-05-14] MEDS: Zithromax 500 MG/ 250 ML NaCl Premix 500 MG/250 ML IVPB IV SCH (09:56)
[2017-05-14] MEDS: Pepcid 20 MG PO SCH (09:56)
[2017-05-14] MEDS: Sinemet 10/100 MG PO SCH (09:56)
[2017-05-14] MEDS: ENOXAPARIN SODIUM SQ SCH (09:56)
[2017-05-14] MEDS: Xalatan OP SCH (09:57)
[2017-05-14] MEDS: Sinemet 25/100 MG PO SCH (09:57)
[2017-05-14 12:07] VITALS: BP 126/58; PULSE 88; O2SAT 98
--- NOTE | 2017-05-14 14:23 | PCM.DS ---
Discharge Summary Date of Admission: 05/10/17 06:33 Date of Discharge: 05/14/17 Admitting Physician: MARCI KITCHEN Primary Care Provider: MARCI KITCHEN Allergies Allergies No Known Drug Allergies Allergy (Verified 12/23/16 01:29) Hospital Summary - Hospital Course Hospital Course: worsening of her chronic psp resulted in worsening po intake more difficulty with core weakness and dysphagia and dehydration with poor nutritoin intake and then developed fever and sepsis due to UTI. she was sent to ED where she was found to be severely dehydrated, hypernatremic, with sepsis and acute kidney injury. She was rehydrated and treated for UTI with Rocephin which the culture showed sensitivity to. She has concerns for aspiration as well as recurrent severe c. diff infections as outpatient no diarrhea currently but was kept on her flagyl as well and changed to iv due to her inability to swallow. She did wake up more and was able to eat small amounts and communicate minimally with her son and some additional family that was able to come in and see her over the weekend. Given the progressive and terminal disease in the psp it is unlikely she will fully regain the ability to hydrate and adequately obtain nutrition herself. I had a discussion with the son who understands the progression of the disease and agrees she does not want to be sustained on life supporting measures or artificial nutrition or g-tubes. With her afebrile now and Na improved and gisela improved, will discharge back to [facility] to complete treatment for the UTI and will consult hospice with plans to pursue comfort measures from hear forward with her limited life expectancy. - Vitals & Intake/Output Vital Signs: Vital Signs Temperature 98.6 F 05/14/17 12:06 Pulse Rate 88 05/14/17 12:06 Respiratory Rate 32 H 05/14/17 12:06 Blood Pressure 126/58 05/14/17 12:06 O2 Sat by Pulse Oximetry 98 05/14/17 12:06 Oxygen-Last Documented O2 Percentage 4 Liters = 36% Intake & Output: Intake & Output 05/12/17 05/13/17 05/14/17 05/15/17 11:59 11:59 11:59 11:59 Intake Total 3168 2556 2829 Output Total 1400 3000 4400 1400 Balance 4388 -444 -1571 -1400 - Lab Result Diagrams: 05/14/17 05:37 05/14/17 05:37 Lab Results-Last 24 Hrs: Lab Results-Last 24 Hours 05/14/17 05/14/17 Range/Units 05:37 05:37 WBC 6.0 (4.0-10.5) K/mm3 RBC 3.06 L (4.1-5.4) M/mm3 Hgb 9.1 L (12.0-16.0) gm/dl Hct 29.2 L (35-47) % MCV 95.4 (78-100) fl MCH 29.7 (26-32) pg MCHC 31.2 L (32-36) g/dl RDW 15.9 H (11.5-14.0) % Plt Count 131 L (150-450) K/mm3 MPV 12.3 H (6-9.5) fl Sodium 146 H (136-145) mEq/L Potassium 2.7 L* (3.5-5.1) mEq/L Chloride 115 H (98-107) mEq/L Carbon Dioxide 25.3 (21-32) mEq/L Anion Gap 9.5 (5-15) MEQ/L BUN 5 L (9-20) mg/dL Creatinine 0.47 L (0.55-1.30) mg/dl Estimated GFR > 60 ML/MIN Glucose 115 H (70-110) MG/DL Calcium 7.5 L (8.5-10.1) mg/dL - Procedures and Test Procedures and Tests throughout Hospitalization: Therapy Orders & Screens 05/10/17 09:29 Respiratory Nebulizer PRN Comment: Diagnosis: Shortness of Breath 05/10/17 09:30 Oxygen NASAL CANNULA 4 lpm Comment: Diagnosis: Shortness of Breath 05/11/17 08:25 Respiratory Therapy Consult ROUTINE Comment: Reason For Exam: Diagnosis: Shortness of Breath Discharge Exam General Appearance: no apparent distress Neurologic Exam: alert, cooperative, other (slow speech eyes open fixed in position slow but accurate to respond on simple questions slumped over appearence with weakness in the neck) Eye Exam: pale conjunctivae, No scleral icterus Ears, Nose, Throat Exam: moist mucous membranes Neck Exam: non-tender, supple Respiratory Exam: normal breath sounds, other (intermittent upper airway noise) Cardiovascular Exam: regular rate/rhythm, normal heart sounds Gastrointestinal/Abdomen Exam: soft, normal bowel sounds, No tenderness Final Diagnosis/Problem List - Final Discharge Diagnosis/Problem (1) Sepsis Status: Acute (2) UTI (urinary tract infection) Status: Acute (3) Progressive supranuclear palsy Status: Chronic (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 Status: Acute (5) Hypernatremia Status: Acute (6) Hypokalemia Status: Acute (7) Acute kidney injury Status: Acute (8) Dysphagia Status: Chronic - Discharge Discharge Date: 05/14/17 Disposition: Skilled Care @ [facility] Condition: Poor Prescriptions: New Cephalexin 250 mg/5 ml Susp [Keflex 250 mg/5 ml Susp] 500 mg PO BID 5 Days #100 ml Potassium Chl 40 Meq Oral Dot* [Potassium Chl 40 Meq/30 ml Oral Solution] 40 meq PO DAILY #30 udcup Lorazepam 20 mg/10 ml Mdv [Ativan 20 MG/10 ML MDV] 0.5 ml PO Q1H PRN # 30 ml PRN Reason: Anxiety Continue Alprazolam [Xanax] 0.5 mg PO HS Latanoprost 1 drop OP DAILY Ipratropium/Albuterol Sulfate [Iprat-Albut 0.5-3(2.5) mg/3 ml] 3 ml IH Q6H PRN PRN PRN Reason: Shortness Of Breath Carbidopa/Levodopa [Carbidopa-Levo 10-100 mg Odt] 1 each PO TID Cyclosporine [Restasis] 1 drop OP BID Carbidopa/Levodopa [Carbidopa-Levo 25-100 Tab] 1 tab PO TID Alprazolam 0.25 mg [xanAX 0.25 MG] 0.25 mg PO BIDPRN PRN PRN Reason: Anxiety Metronidazole 500 mg [Flagyl 500 MG] 500 mg PO TID #21 tablet Ranitidine HCl [Zantac] 300 mg PO DAILY Saccharomyces Boulardii [Florastor] 250 mg PO BID Discontinued Potassium Chloride 8 meq PO TID #90 capsule.er Diphenhydramine HCl [Benadryl] 25 mg PO Q6H PRN PRN PRN Reason: Itching Furosemide [Lasix] 10 mg PO DAILY Instructions: Urinary Tract Infection (UTI) Additional Instructions: [facility] ORDERS: COMFORT MEASURES ONLY SEE ATTACHED MEDICATION RECORD FOR CURRENT MED LIST RX: ATIVAN IN PACKET Follow up with: MARCI KITCHEN [Primary Care Provider] - Forms: Discharge Instructions, Discharge Skin Assessment
== END 2017-05-14 12:30 | DRG 872 ==
LOC: ED 03:17 → MED SURG 06:33
PROVIDERS: ADMIT Family Medicine; ATTEND Family Medicine
DX: A41.9 Sepsis, unspecified organism (principal); N39.0 Urinary tract infection, site not specified; G23.1 Progressive supranuclear ophthalmoplegia [Steele-Richardson-Olszewski]; E87.0 Hyperosmolality and hypernatremia; N17.9 Acute kidney failure, unspecified; Z22.1 Carrier of other intestinal infectious diseases; E87.6 Hypokalemia; E86.0 Dehydration; R13.10 Dysphagia, unspecified; I10 Essential (primary) hypertension; J44.9 Chronic obstructive pulmonary disease, unspecified; K21.9 Gastro-esophageal reflux disease without esophagitis; G47.00 Insomnia, unspecified; F41.9 Anxiety disorder, unspecified; M81.0 Age-related osteoporosis without current pathological fracture; Z79.899 Other long term (current) drug therapy; Z86.73 Personal history of transient ischemic attack (TIA), and cerebral infarction without residual deficits
CPT/HCPCS: 36415; 51702; 71010; 80048; 80053; 81000; 82805; 83605; 83735; 83880; 84132; 84484; 85025; 85027; 85610; 87040; 87077; 87086; 87186; 87631; 93005; 93041; 94640; 94760; 96360; 96361; 96365; 99285; J0456; J0696; J1650; J1956; J3480; A9270-GY